=== PATIENT | female | born 1940 | race Caucasian/White ===

== ENCOUNTER 2021-03-12 09:52 | Emergency (ER) | payer OTHER ==
[2021-03-12 09:59] VITALS: BP 160/87; PULSE 90; TEMP 98.5; BMI 25.1
== END 2021-03-12 11:04 | disposition home or self-care (01) ==
LOC: JER 09:52
DX: B02.8 Zoster with other complications (principal)
CPT/HCPCS: 99281-25

== ENCOUNTER 2021-10-23 14:30 | Emergency (ER) | payer OTHER ==
[2021-10-23 14:46] VITALS: TEMP 98; BMI 25.1
[2021-10-23 17:25] LABS: HEMATOCRIT 33.2 % (32.4-45.2); HEMOGLOBIN 10.6 GM/dL (10.7-15.3); MCH 23.8 pg (25.7-33.7); MCHC 31.8 g/dl (32.0-36.0); MEAN CELL VOLUME 74.7 fl (80-96); MEAN PLT VOLUME 9.3 fl (7.5-11.1); PLATELET COUNT 426 10^3/uL (134-434); RBC 4.45 M/mm3 (3.60-5.2); RDW 16.8 % (11.6-15.6); WHITE BLOOD COUNT 9.6 K/mm3 (4.0-10.0)
[2021-10-23 17:42] LABS: ALBUMIN 3.4 g/dl (3.4-5.0); BLOOD UREA NITROGEN 22.6 mg/dL (7-18); CALCIUM 9.6 mg/dL (8.5-10.1)
[2021-10-23 17:45] LABS: CREATININE 1.1 mg/dL (0.55-1.3)
[2021-10-23 17:47] LABS: ACTIVATED PTT 27.6 SECONDS (25.2-36.5); BILIRUBIN,TOTAL 0.3 mg/dL (0.2-1); INR 1.03 (0.83-1.09); PROTHROMBIN TIME (PATIENT) 11.9 SEC (9.7-13.0); TOT PROT 7.5 g/dl (6.4-8.2)
[2021-10-23 17:50] LABS: URIC ACID 4.6 mg/dL (2.6-7.2)
[2021-10-23] MEDS ORDERED: KETOROLAC TROMETHAMINE 15 MG/ML VIAL IVPUSH ONE (18:37)
[2021-10-23] MEDS ORDERED: KETOROLAC TROMETHAMINE 15 MG/ML VIAL ONE (18:55)
[2021-10-23 19:19] VITALS: BP 154/75; PULSE 74
== END 2021-10-23 19:19 | disposition home or self-care (01) ==
LOC: JER 14:30
PROC: 3E0333Z Introduction of Anti-inflammatory into Peripheral Vein, Percutaneous Approach (ICD-10-PCS; principal; 2021-10-23)
DX: I73.9 Peripheral vascular disease, unspecified (principal); M79.672 Pain in left foot
CPT/HCPCS: 36415; 73630-TC-LT; 80053; 84550; 85025; 85610; 85730; 93971-TC; 99285-25

== ENCOUNTER 2022-01-10 14:14 | Inpatient (IN) | payer OTHER ==
[2022-01-10] MEDS ORDERED: ACETAMINOPHEN 1000 MG/100 ML BAG IVPB ONE (15:07)
[2022-01-10] MEDS ORDERED: ACETAMINOPHEN INJECTION 100 ML IVPB ONE (15:38)
[2022-01-10 16:26] LABS: BASO % 0.2 % (0-2.0); EOS % 1.1 % (0-4.5); HEMATOCRIT 32.4 % (32.4-45.2); HEMOGLOBIN 10.3 GM/dL (10.7-15.3); LYMPH % 9.8 % (8-40); MCH 26.1 pg (25.7-33.7); MCHC 31.9 g/dl (32.0-36.0); MEAN CELL VOLUME 81.9 fl (80-96); MONO % 12.8 % (3.8-10.2); NEUT % 76.1 % (42.8-82.8); PLATELET COUNT 232 10^3/uL (134-434); RBC 3.96 M/mm3 (3.60-5.2); RDW 20.9 % (11.6-15.6); WHITE BLOOD COUNT 12.8 K/mm3 (4.0-10.0)
[2022-01-10 16:34] LABS: INR 0.93 (0.83-1.09); PROTHROMBIN TIME (PATIENT) 10.7 SEC (9.7-13.0)
[2022-01-10 16:37] LABS: ACTIVATED PTT 25.6 SECONDS (25.2-36.5)
[2022-01-10 16:44] LABS: ALBUMIN 3.5 g/dl (3.4-5.0); BLOOD UREA NITROGEN 19.9 mg/dL (7-18); CALCIUM 9.6 mg/dL (8.5-10.1)
[2022-01-10 16:47] LABS: CREATININE 0.9 mg/dL (0.55-1.3)
[2022-01-10 16:49] LABS: BILIRUBIN,TOTAL 0.5 mg/dL (0.2-1); TOT PROT 7.2 g/dl (6.4-8.2)
[2022-01-10] MEDS ORDERED: morphine CARPU-JECT 2 MG/1 ML DISP.SYRIN IVPUSH ONE ×2 (17:34→21:18)
[2022-01-10] MEDS ORDERED: ONDANSETRON 4 MG/2 ML VIAL IVPUSH ONE (17:43)
[2022-01-10 17:47] LABS: ANISOCYTOSIS 2+; MACROCYTOSIS 0; OVALOCYTE 2+; TEAR DROP CELLS 1+
[2022-01-10 18:15] LABS: ERYTHROCYTE SEDIMENTATION RATE 24 mm/hr (0-30)
[2022-01-10] MEDS ORDERED: CEFAZOLIN 1 GM/D5W 1 GM/50 ML BAG IVPB ONE (18:35)
[2022-01-10] MEDS ORDERED: ceFAZolin SODIUM 1 GM VIAL ONE (20:55)
[2022-01-11 02:17] VITALS: BMI 25.9
[2022-01-11] MEDS: LEVOTHYROXINE NA 100 MCG TABLET (FP) PO SCH (06:18)
[2022-01-11 09:09] LABS: BASO % 0.3 % (0-2.0); EOS % 2.2 % (0-4.5); HEMATOCRIT 30.5 % (32.4-45.2); HEMOGLOBIN 10.2 GM/dL (10.7-15.3); LYMPH % 13.1 % (8-40); MCH 27.2 pg (25.7-33.7); MCHC 33.3 g/dl (32.0-36.0); MEAN CELL VOLUME 81.5 fl (80-96); MEAN PLT VOLUME 9.2 fl (7.5-11.1); MONO % 12.6 % (3.8-10.2); NEUT % 71.8 % (42.8-82.8); PLATELET COUNT 241 10^3/uL (134-434); RBC 3.74 M/mm3 (3.60-5.2); RDW 20.1 % (11.6-15.6); WHITE BLOOD COUNT 9.8 K/mm3 (4.0-10.0)
[2022-01-11 09:28] LABS: BLOOD UREA NITROGEN 16.8 mg/dL (7-18); CALCIUM 8.9 mg/dL (8.5-10.1)
[2022-01-11 09:29] LABS: ALBUMIN 3.1 g/dl (3.4-5.0); MAGNESIUM 2.1 mg/dL (1.8-2.4)
[2022-01-11 09:31] LABS: CREATININE 0.8 mg/dL (0.55-1.3); PHOSPHOROUS 3.4 mg/dL (2.5-4.9)
[2022-01-11 09:32] LABS: BILIRUBIN,TOTAL 0.8 mg/dL (0.2-1); TOT PROT 6.4 g/dl (6.4-8.2)
[2022-01-11] MEDS ORDERED: ENOXAPARIN NA (PORCINE) 40 MG/0.4 ML DISP.SYRIN SQ SCH (10:00)
[2022-01-11] MEDS ORDERED: ASPIRIN COATED 81 MG TABLET.EC PO SCH (10:00)
[2022-01-11] MEDS ORDERED: CLOPIDOGREL BISULFATE 75 MG TABLET (FP) PO SCH (10:00)
[2022-01-11] MEDS ORDERED: HEPARIN NA (PORCINE) 5,000 UNITS/ML 1ML VIAL IVPUSH PRN (10:55)
[2022-01-11] MEDS: HEPARIN SOD,PORK IN 0.45% NACL 25,000 UNITS/500 ML INFUS.BAG IVPB SCH (12:09)
[2022-01-11] MEDS ORDERED: ONDANSETRON 4 MG/2 ML VIAL IVPUSH ONE (20:31)
[2022-01-11] MEDS ORDERED: LOSARTAN POTASSIUM 50 MG TABLET PO SCH (22:00)
[2022-01-11] MEDS ORDERED: ATORVASTATIN CA 10 MG TABLET (FP) PO SCH (22:00)
[2022-01-11] MEDS: HEPARIN NA (PORCINE) 5,000 UNITS/ML 1ML VIAL IVPUSH PRN (22:13)
[2022-01-12] MEDS: ONDANSETRON 4 MG/2 ML VIAL IVPUSH PRN ×2 (02:31→11:55)
[2022-01-12] MEDS: LEVOTHYROXINE NA 100 MCG TABLET (FP) PO SCH (06:22)
[2022-01-12] MEDS: HEPARIN NA (PORCINE) 5,000 UNITS/ML 1ML VIAL IVPUSH PRN (06:46)
[2022-01-12 09:07] LABS: BASO % 0.5 % (0-2.0); EOS % 2.6 % (0-4.5); HEMATOCRIT 28.6 % (32.4-45.2); HEMOGLOBIN 9.6 GM/dL (10.7-15.3); LYMPH % 16.8 % (8-40); MCHC 33.4 g/dl (32.0-36.0); MEAN CELL VOLUME 80.8 fl (80-96); MEAN PLT VOLUME 9.9 fl (7.5-11.1); NEUT % 67.1 % (42.8-82.8); PLATELET COUNT 236 10^3/uL (134-434); RBC 3.54 M/mm3 (3.60-5.2); RDW 20.5 % (11.6-15.6); WHITE BLOOD COUNT 9.3 K/mm3 (4.0-10.0)
[2022-01-12 10:02] LABS: BLOOD UREA NITROGEN 14.2 mg/dL (7-18); CALCIUM 8.8 mg/dL (8.5-10.1)
[2022-01-12 10:05] LABS: BILIRUBIN,TOTAL 0.9 mg/dL (0.2-1); PHOSPHOROUS 3.4 mg/dL (2.5-4.9); TOT PROT 6.3 g/dl (6.4-8.2)
[2022-01-12 10:08] LABS: CREATININE 0.7 mg/dL (0.55-1.3)
[2022-01-12] MEDS: HEPARIN SOD,PORK IN 0.45% NACL 25,000 UNITS/500 ML INFUS.BAG IVPB SCH (11:58)
[2022-01-12] MEDS ORDERED: HEPARIN NA (PORCINE) 5,000 UNITS/ML 1ML VIAL ONE (12:21)
[2022-01-12] MEDS ORDERED: LIDOCAINE HCL 1%, 10 MG/ML (20ML VIAL) ONE (12:21)
[2022-01-12] MEDS ORDERED: LIDOCAINE HCL 1%, 10 MG/ML (20ML VIAL) NR ONE ×2 (12:46→15:02)
[2022-01-12] MEDS ORDERED: HEPARIN NA (PORCINE) 5,000 UNITS/ML 1ML VIAL SQ ONE ×2 (12:47→15:15)
[2022-01-12] MEDS ORDERED: DEXMEDETOMIDINE HCL 200 MCG/2 ML IVPB ONE (14:18)
[2022-01-12] MEDS ORDERED: MIDAZOLAM HCL 2 MG/2 ML SINGLE DOSE VIAL ONE (14:20)
[2022-01-12 14:41] LABS: EPI CELLS 3 /uL (0-25.1); HYALINE CASTS 0 /uL (0-3.1); URINE APPEARANCE CLEAR; URINE BACTERIA 4 /uL (0-1359); URINE BILIRUBIN NEGATIVE (NEGATIVE); URINE COLOR YELLOW; URINE GLUCOSE (UA) NEGATIVE (NEGATIVE); URINE KETONE NEGATIVE (NEGATIVE); URINE LEUK ESTERASE NEGATIVE (NEGATIVE); URINE NITRITE NEGATIVE (NEGATIVE); URINE PROTEIN NEGATIVE (NEGATIVE); URINE RBC 23 /uL (0-23.9); URINE WBC 3 /uL (0-25.8)
[2022-01-12] MEDS ORDERED: ceFAZolin SODIUM 1 GM VIAL IVPB ONE (14:50)
[2022-01-12] MEDS ORDERED: ceFAZolin SODIUM 1 GM VIAL ONE ×2 (14:55)
[2022-01-12] MEDS ORDERED: PROPOFOL 20 ML ONE (15:02)
[2022-01-12] MEDS ORDERED: ONDANSETRON 4 MG/2 ML VIAL IVPUSH PRN ×2 (16:11→16:21)
[2022-01-12] MEDS ORDERED: FENTANYL CITRATE/PF 50 MCG/ML VIAL ONE ×2 (16:19→17:05)
[2022-01-12] MEDS ORDERED: CLOPIDOGREL BISULFATE 75 MG TABLET (FP) ONE (16:49)
[2022-01-12] MEDS ORDERED: CLOPIDOGREL BISULFATE 75 MG TABLET (FP) PO ONE (16:53)
[2022-01-12] MEDS: LACTATED RINGERS SOLUTION 1,000 ML IV SCH (18:01)
[2022-01-12] MEDS: CLOPIDOGREL BISULFATE 75 MG TABLET (FP) PO SCH (18:01)
[2022-01-12] MEDS: LOSARTAN POTASSIUM 50 MG TABLET PO SCH (21:58)
[2022-01-12] MEDS: ATORVASTATIN CA 10 MG TABLET (FP) PO SCH (21:58)
[2022-01-13] MEDS: LEVOTHYROXINE NA 100 MCG TABLET (FP) PO SCH (06:08)
[2022-01-13] MEDS: LACTATED RINGERS SOLUTION 1,000 ML IV SCH ×2 (06:10→17:25)
[2022-01-13 08:45] LABS: HEMOGLOBIN 9.7 GM/dL (10.7-15.3); MCH 26.3 pg (25.7-33.7); MCHC 32.4 g/dl (32.0-36.0); MEAN CELL VOLUME 81.3 fl (80-96); MEAN PLT VOLUME 9.6 fl (7.5-11.1); PLATELET COUNT 259 10^3/uL (134-434); RBC 3.68 M/mm3 (3.60-5.2); RDW 20.2 % (11.6-15.6); WHITE BLOOD COUNT 10.6 K/mm3 (4.0-10.0)
[2022-01-13 09:02] LABS: CALCIUM 8.6 mg/dL (8.5-10.1)
[2022-01-13 09:03] LABS: ALBUMIN 2.9 g/dl (3.4-5.0); MAGNESIUM 1.9 mg/dL (1.8-2.4)
[2022-01-13 09:06] LABS: CREATININE 0.7 mg/dL (0.55-1.3); PHOSPHOROUS 3.3 mg/dL (2.5-4.9)
[2022-01-13 09:07] LABS: TOT PROT 6.2 g/dl (6.4-8.2)
[2022-01-13 09:08] LABS: BILIRUBIN,TOTAL 1.1 mg/dL (0.2-1)
[2022-01-13] MEDS ORDERED: PANTOPRAZOLE 40 MG TABLET PO SCH (10:00)
[2022-01-13] MEDS: ASPIRIN COATED 81 MG TABLET.EC PO SCH (11:00)
[2022-01-13] MEDS: PANTOPRAZOLE 40 MG TABLET PO SCH (11:00)
[2022-01-13] MEDS: CLOPIDOGREL BISULFATE 75 MG TABLET (FP) PO SCH (11:00)
[2022-01-13] MEDS: ENOXAPARIN NA (PORCINE) 40 MG/0.4 ML DISP.SYRIN SQ SCH (11:34)
[2022-01-13] MEDS: POLYETHYLENE GLYCOL (HEALTHYLAX) 3350 17 GM PACKET PO SCH (13:49)
[2022-01-13] MEDS: LOSARTAN POTASSIUM 50 MG TABLET PO SCH (23:01)
[2022-01-13] MEDS: ATORVASTATIN CA 10 MG TABLET (FP) PO SCH (23:02)
[2022-01-14] MEDS: LACTATED RINGERS SOLUTION 1,000 ML IV SCH (06:24)
[2022-01-14] MEDS: LEVOTHYROXINE NA 100 MCG TABLET (FP) PO SCH (06:24)
[2022-01-14 08:58] LABS: BASO % 0.3 % (0-2.0); EOS % 2.7 % (0-4.5); HEMATOCRIT 30.6 % (32.4-45.2); HEMOGLOBIN 9.9 GM/dL (10.7-15.3); MCH 26.7 pg (25.7-33.7); MCHC 32.5 g/dl (32.0-36.0); MEAN CELL VOLUME 82.1 fl (80-96); MEAN PLT VOLUME 9.7 fl (7.5-11.1); MONO % 14.6 % (3.8-10.2); NEUT % 67.4 % (42.8-82.8); PLATELET COUNT 293 10^3/uL (134-434); RBC 3.72 M/mm3 (3.60-5.2); RDW 19.7 % (11.6-15.6); WHITE BLOOD COUNT 10.9 K/mm3 (4.0-10.0)
[2022-01-14] MEDS: POLYETHYLENE GLYCOL (HEALTHYLAX) 3350 17 GM PACKET PO SCH (09:00)
[2022-01-14] MEDS: PANTOPRAZOLE 40 MG TABLET PO SCH (09:00)
[2022-01-14] MEDS: ENOXAPARIN NA (PORCINE) 40 MG/0.4 ML DISP.SYRIN SQ SCH (09:00)
[2022-01-14] MEDS: CLOPIDOGREL BISULFATE 75 MG TABLET (FP) PO SCH (09:00)
[2022-01-14] MEDS: ASPIRIN COATED 81 MG TABLET.EC PO SCH (09:00)
[2022-01-14 10:01] LABS: BILIRUBIN,TOTAL 1.1 mg/dL (0.2-1); CALCIUM 8.8 mg/dL (8.5-10.1); TOT PROT 6.4 g/dl (6.4-8.2)
[2022-01-14 10:02] LABS: ALBUMIN 2.9 g/dl (3.4-5.0); BLOOD UREA NITROGEN 15.3 mg/dL (7-18); MAGNESIUM 1.9 mg/dL (1.8-2.4)
[2022-01-14 10:04] LABS: CREATININE 0.7 mg/dL (0.55-1.3)
[2022-01-14] MEDS ORDERED: ceFAZolin 2 GRAM PREMIX BAG IVPB ONE (15:08)
[2022-01-14] MEDS ORDERED: CEFAZOLIN 2 GM in DEXTROSE 5%-WATER - 100 ML IVPB ONE (16:00)
[2022-01-14] MEDS: ATORVASTATIN CA 10 MG TABLET (FP) PO SCH (22:02)
[2022-01-14] MEDS: LOSARTAN POTASSIUM 50 MG TABLET PO SCH (22:03)
[2022-01-15] MEDS: LACTATED RINGERS SOLUTION 1,000 ML IV SCH (05:47)
[2022-01-15] MEDS: LEVOTHYROXINE NA 100 MCG TABLET (FP) PO SCH (06:47)
[2022-01-15 09:26] LABS: HEMOGLOBIN 9.4 GM/dL (10.7-15.3); MCH 27.3 pg (25.7-33.7); MCHC 33.4 g/dl (32.0-36.0); MEAN CELL VOLUME 81.6 fl (80-96); MEAN PLT VOLUME 9.3 fl (7.5-11.1); PLATELET COUNT 274 10^3/uL (134-434); RBC 3.43 M/mm3 (3.60-5.2); RDW 19.7 % (11.6-15.6); WHITE BLOOD COUNT 9.2 K/mm3 (4.0-10.0)
[2022-01-15] MEDS: ASPIRIN COATED 81 MG TABLET.EC PO SCH (09:30)
[2022-01-15] MEDS: CLOPIDOGREL BISULFATE 75 MG TABLET (FP) PO SCH (09:30)
[2022-01-15] MEDS: ENOXAPARIN NA (PORCINE) 40 MG/0.4 ML DISP.SYRIN SQ SCH (09:30)
[2022-01-15] MEDS: PANTOPRAZOLE 40 MG TABLET PO SCH (09:30)
[2022-01-15] MEDS: POLYETHYLENE GLYCOL (HEALTHYLAX) 3350 17 GM PACKET PO SCH (09:31)
[2022-01-15 14:26] VITALS: BP 110/60; PULSE 101; TEMP 98.4
== END 2022-01-15 15:56 | disposition home health service (06) | DRG 271 ==
LOC: JER 14:14 → JERBED 22:33 → J7W 01-11 01:55
PROVIDERS: ADMIT Internal Medicine; ATTEND Internal Medicine
PROC: X27J385 Dilation of Left Femoral Artery with Sustained Release Drug-eluting Intraluminal Device, Percutaneous Approach, New Technology Group 5 (ICD-10-PCS; 2022-01-12)
PROC: 3E05317 Introduction of Other Thrombolytic into Peripheral Artery, Percutaneous Approach (ICD-10-PCS; 2022-01-12)
PROC: 04CL3ZZ Extirpation of Matter from Left Femoral Artery, Percutaneous Approach (ICD-10-PCS; principal; 2022-01-12 14:00)
DX: I73.9 Peripheral vascular disease, unspecified (principal); I74.3 Embolism and thrombosis of arteries of the lower extremities; M79.605 Pain in left leg; E03.9 Hypothyroidism, unspecified; I10 Essential (primary) hypertension; D64.9 Anemia, unspecified; E78.5 Hyperlipidemia, unspecified; D72.829 Elevated white blood cell count, unspecified; I49.1 Atrial premature depolarization
CPT/HCPCS: 36415; 73590-TC-LT-FY; 73610-TC-LT-FY; 73706-TC-RT; 76000-TC-FY; 80053; 81003; 82272; 82728; 83540; 83550; 83735; 84100; 85025; 85027; 85045; 85610; 85651; 85730; 86140; 86850; 86900; 86901; 93005; 93010; 93925-TC; 93971-TC; 94760; 97116-GP; 97161-GP; 99285-25; C9803-CS; J1644; Q9967; U0003; U0005

== ENCOUNTER 2022-02-26 09:12 | Inpatient (IN) | payer OTHER ==
[2022-02-26] MEDS ORDERED: morphine CARPU-JECT 4 MG/1 ML DISP.SYRIN IVPUSH ONE (10:21)
[2022-02-26] MEDS ORDERED: morphine SULFATE 4 MG/ML VIAL ONE (10:23)
[2022-02-26 10:31] LABS: EOS % 2.6 % (0-4.5); HEMATOCRIT 40.6 % (32.4-45.2); HEMOGLOBIN 13.3 GM/dL (10.7-15.3); MCH 28.3 pg (25.7-33.7); MCHC 32.7 g/dl (32.0-36.0); MEAN CELL VOLUME 86.4 fl (80-96); MEAN PLT VOLUME 9.7 fl (7.5-11.1); MONO % 8.7 % (3.8-10.2); NEUT % 64.7 % (42.8-82.8); PLATELET COUNT 295 10^3/uL (134-434); RDW 16.6 % (11.6-15.6); WHITE BLOOD COUNT 8.5 K/mm3 (4.0-10.0)
[2022-02-26 10:40] LABS: INR 0.96 (0.83-1.09)
[2022-02-26 10:43] LABS: ACTIVATED PTT 28.3 SECONDS (25.2-36.5)
[2022-02-26 10:58] LABS: CALCIUM 10.1 mg/dL (8.5-10.1)
[2022-02-26 10:59] LABS: ALBUMIN 4.1 g/dl (3.4-5.0)
[2022-02-26] MEDS ORDERED: ONDANSETRON 4 MG/2 ML VIAL IVPUSH ONE (10:59)
[2022-02-26 11:02] LABS: CREATININE 0.9 mg/dL (0.55-1.3)
[2022-02-26] MEDS ORDERED: ONDANSETRON 4 MG/2 ML VIAL ONE (11:02)
[2022-02-26 11:03] LABS: TOT PROT 7.9 g/dl (6.4-8.2)
[2022-02-26 11:04] LABS: BILIRUBIN,TOTAL 0.6 mg/dL (0.2-1)
[2022-02-26] MEDS ORDERED: traMADol HCL 50 MG TABLET PO PRN (11:33)
[2022-02-26] MEDS ORDERED: HEPARIN NA (PORCINE) 5,000 UNITS/ML 1ML VIAL ONE ×2 (14:33→18:42)
[2022-02-26] MEDS ORDERED: LIDOCAINE HCL 1%, 10 MG/ML (20ML VIAL) ONE (14:33)
[2022-02-26] MEDS ORDERED: PROPOFOL 20 ML ONE ×2 (17:05→17:25)
[2022-02-26] MEDS ORDERED: MIDAZOLAM HCL 2 MG/2 ML SINGLE DOSE VIAL ONE (17:05)
[2022-02-26] MEDS ORDERED: ceFAZolin SODIUM 1 GM VIAL IVPB ONE (17:10)
[2022-02-26] MEDS ORDERED: LIDOCAINE HCL 1%, 10 MG/ML (20ML VIAL) INF ONE (17:34)
[2022-02-26] MEDS ORDERED: OXYTOCIN 10 UNITS/ML VIAL ONE (17:43)
[2022-02-26] MEDS ORDERED: ALTEPLASE (CATHFLO) 15 MG in SODIUM CHLORIDE 135 ML CVP ONE ×3 (18:30→23:00)
[2022-02-26] MEDS ORDERED: HEPARIN INFUSION - 25,000 UNITS/500 ML INFUS.BAG IVPB ONE (18:46)
[2022-02-26] MEDS: SODIUM CHLORIDE 1,000 ML IV SCH (19:00)
[2022-02-26] MEDS ORDERED: KETOROLAC TROMETHAMINE 30 MG/1 ML VIAL ONE (19:07)
[2022-02-26] MEDS ORDERED: HEPARIN INFUSION - 25,000 UNITS/500 ML INFUS.BAG IVPB SCH (19:30)
[2022-02-26] MEDS ORDERED: FENTANYL CITRATE/PF 50 MCG/ML VIAL ONE ×2 (19:39→21:12)
[2022-02-26] MEDS ORDERED: ONDANSETRON 4 MG/2 ML VIAL IVPUSH PRN (19:44)
[2022-02-26] MEDS ORDERED: PROMETHAZINE HCL 25 MG/1 ML VIAL IVPUSH PRN (19:44)
[2022-02-26] MEDS ORDERED: ALTEPLASE (CATHFLO) 2 MG/2 ML VIAL CVP ONE (22:13)
[2022-02-26] MEDS: ATORVASTATIN CA 10 MG TABLET (FP) PO SCH (22:53)
[2022-02-26] MEDS: LOSARTAN POTASSIUM 50 MG TABLET PO SCH (22:53)
[2022-02-26] MEDS: morphine SULFATE 4 MG/ML VIAL IVPUSH PRN (23:04)
[2022-02-27] MEDS ORDERED: ACETAMINOPHEN 1000 MG/100 ML BAG IVPB ONE (01:28)
[2022-02-27 02:19] LABS: MCH 28.3 pg (25.7-33.7); MCHC 33.2 g/dl (32.0-36.0); MEAN CELL VOLUME 85.2 fl (80-96); MEAN PLT VOLUME 9.3 fl (7.5-11.1); PLATELET COUNT 208 10^3/uL (134-434); RBC 4.23 M/mm3 (3.60-5.2); RDW 16.4 % (11.6-15.6); WHITE BLOOD COUNT 10.3 K/mm3 (4.0-10.0)
[2022-02-27] MEDS: morphine SULFATE 4 MG/ML VIAL IVPUSH PRN ×2 (03:09→07:22)
[2022-02-27 03:26] LABS: BLOOD UREA NITROGEN 18.8 mg/dL (7-18)
[2022-02-27 03:29] LABS: CREATININE 0.8 mg/dL (0.55-1.3)
[2022-02-27 03:53] LABS: CALCIUM 8.3 mg/dL (8.5-10.1)
[2022-02-27 06:07] LABS: HEMATOCRIT 35.7 % (32.4-45.2); HEMOGLOBIN 11.9 GM/dL (10.7-15.3); MCH 28.4 pg (25.7-33.7); MCHC 33.2 g/dl (32.0-36.0); MEAN CELL VOLUME 85.6 fl (80-96); MEAN PLT VOLUME 9.3 fl (7.5-11.1); PLATELET COUNT 207 10^3/uL (134-434); RBC 4.18 M/mm3 (3.60-5.2); RDW 16.4 % (11.6-15.6); WHITE BLOOD COUNT 9.3 K/mm3 (4.0-10.0)
[2022-02-27 06:22] LABS: ACTIVATED PTT 34.9 SECONDS (25.2-36.5)
[2022-02-27 06:27] LABS: CALCIUM 8.3 mg/dL (8.5-10.1)
[2022-02-27 06:28] LABS: BLOOD UREA NITROGEN 18.5 mg/dL (7-18)
[2022-02-27 06:31] LABS: CREATININE 0.8 mg/dL (0.55-1.3)
[2022-02-27 06:33] LABS: BILIRUBIN,TOTAL 0.5 mg/dL (0.2-1); TOT PROT 6.3 g/dl (6.4-8.2)
[2022-02-27 06:43] LABS: INR 1.07 (0.83-1.09); PROTHROMBIN TIME (PATIENT) 12.3 SEC (9.7-13.0)
[2022-02-27] MEDS: LEVOTHYROXINE NA 100 MCG TABLET (FP) PO SCH (07:21)
[2022-02-27] MEDS ORDERED: ALTEPLASE (CATHFLO) 2 MG/2 ML VIAL IVPUSH ONE (07:24)
[2022-02-27] MEDS ORDERED: ALTEPLASE (CATHFLO) 2 MG/2 ML VIAL CVP ONE (07:24)
[2022-02-27 07:27] LABS: ALBUMIN 3.1 g/dl (3.4-5.0)
[2022-02-27] MEDS ORDERED: ALTEPLASE (CATHFLO) 15 MG in SODIUM CHLORIDE 135 ML CVP ONE (09:00)
[2022-02-27] MEDS: FERROUS SO4 325 MG TABLET (FP) PO SCH (09:10)
[2022-02-27] MEDS: PANTOPRAZOLE 40 MG TABLET PO SCH (09:10)
[2022-02-27] MEDS ORDERED: HYDROmorphone HCl 2 MG/ML VIAL IM PRN ×2 (09:23→09:59)
[2022-02-27] MEDS: DOCUSATE SODIUM 100 MG CAPSULE (FP) PO SCH (10:19)
[2022-02-27] MEDS: HYDROmorphone HCl 2 MG/ML VIAL IVPUSH PRN (12:11)
[2022-02-27 13:51] LABS: BASO % 0.2 % (0-2.0); EOS % 0.6 % (0-4.5); HEMATOCRIT 36.2 % (32.4-45.2); HEMOGLOBIN 11.7 GM/dL (10.7-15.3); LYMPH % 14.9 % (8-40); MCH 27.7 pg (25.7-33.7); MCHC 32.3 g/dl (32.0-36.0); MEAN CELL VOLUME 85.8 fl (80-96); MEAN PLT VOLUME 9.2 fl (7.5-11.1); MONO % 11.4 % (3.8-10.2); NEUT % 72.9 % (42.8-82.8); PLATELET COUNT 197 10^3/uL (134-434); RBC 4.23 M/mm3 (3.60-5.2); RDW 16.4 % (11.6-15.6); WHITE BLOOD COUNT 11.9 K/mm3 (4.0-10.0)
[2022-02-27 13:59] LABS: ALBUMIN 3.1 g/dl (3.4-5.0); BLOOD UREA NITROGEN 15.2 mg/dL (7-18); INR 1.03 (0.83-1.09); PROTHROMBIN TIME (PATIENT) 11.8 SEC (9.7-13.0)
[2022-02-27 14:01] LABS: ACTIVATED PTT 22.8 SECONDS (25.2-36.5)
[2022-02-27 14:03] LABS: CREATININE 0.6 mg/dL (0.55-1.3)
[2022-02-27 14:04] LABS: BILIRUBIN,TOTAL 0.6 mg/dL (0.2-1); TOT PROT 6.7 g/dl (6.4-8.2)
[2022-02-27] MEDS ORDERED: HEPARIN NA (PORCINE) 5,000 UNITS/ML 1ML VIAL IVPUSH ONE (14:36)
[2022-02-27] MEDS ORDERED: HEPARIN NA (PORCINE) 5,000 UNITS/ML 1ML VIAL IVPUSH PRN ×3 (14:38→21:30)
[2022-02-27] MEDS ORDERED: HEPARIN - 25,000 UNIT in SODIUM CHLORIDE 495 ML IV SCH (14:45)
[2022-02-27] MEDS ORDERED: LIDOCAINE HCL 1%, 10 MG/ML (20ML VIAL) ONE (16:35)
[2022-02-27] MEDS ORDERED: HEPARIN NA (PORCINE) 5,000 UNITS/ML 1ML VIAL ONE ×2 (16:35→20:50)
[2022-02-27] MEDS ORDERED: LIDOCAINE HCL/PF 2% SDV 5ML VIAL ONE (17:30)
[2022-02-27] MEDS ORDERED: MIDAZOLAM HCL 2 MG/2 ML SINGLE DOSE VIAL ONE (17:31)
[2022-02-27] MEDS ORDERED: PROPOFOL 20 ML ONE (17:31)
[2022-02-27] MEDS ORDERED: ceFAZolin SODIUM 1 GM VIAL IVPB ONE (19:50)
[2022-02-27] MEDS ORDERED: HEPARIN NA (PORCINE) 5,000 UNITS/ML 1ML VIAL SQ ONE (19:53)
[2022-02-27] MEDS ORDERED: ceFAZolin SODIUM 1 GM VIAL ONE (20:50)
[2022-02-27] MEDS ORDERED: ONDANSETRON 4 MG/2 ML VIAL IVPUSH PRN (21:32)
[2022-02-27] MEDS: HEPARIN INFUSION - 25,000 UNITS/500 ML INFUS.BAG IVPB SCH (22:33)
[2022-02-27] MEDS: ATORVASTATIN CA 10 MG TABLET (FP) PO SCH (22:34)
[2022-02-27] MEDS: LOSARTAN POTASSIUM 50 MG TABLET PO SCH ×2 (22:34→23:00)
[2022-02-27] MEDS: SODIUM CHLORIDE 1,000 ML IV SCH (22:34)
[2022-02-28] MEDS: HYDROmorphone HCl 2 MG/ML VIAL IVPUSH PRN (03:07)
[2022-02-28] MEDS ORDERED: ONDANSETRON 4 MG/2 ML VIAL IVPUSH PRN (05:09)
[2022-02-28] MEDS: LEVOTHYROXINE NA 100 MCG TABLET (FP) PO SCH (07:12)
[2022-02-28] MEDS: PANTOPRAZOLE 40 MG TABLET PO SCH (10:58)
[2022-02-28] MEDS: DOCUSATE SODIUM 100 MG CAPSULE (FP) PO SCH (10:58)
[2022-02-28] MEDS: FERROUS SO4 325 MG TABLET (FP) PO SCH (10:58)
[2022-02-28 11:23] LABS: ACTIVATED PTT 35.7 SECONDS (25.2-36.5); INR 1.08 (0.83-1.09); PROTHROMBIN TIME (PATIENT) 12.4 SEC (9.7-13.0)
[2022-02-28] MEDS: WARFARIN NA 5 MG TABLET PO SCH (18:05)
[2022-02-28] MEDS: traMADol HCL 50 MG TABLET PO PRN (18:22)
[2022-02-28] MEDS ORDERED: BENZOCAINE/MENTH/CETYLPYRD CL 1 EACH LOZENGE MM PRN (18:28)
[2022-02-28 19:38] LABS: BASO % 0.3 % (0-2.0); EOS % 1.6 % (0-4.5); HEMATOCRIT 28.7 % (32.4-45.2); HEMOGLOBIN 9.5 GM/dL (10.7-15.3); LYMPH % 11.2 % (8-40); MCH 28.5 pg (25.7-33.7); MCHC 33.3 g/dl (32.0-36.0); MEAN CELL VOLUME 85.6 fl (80-96); MEAN PLT VOLUME 8.8 fl (7.5-11.1); NEUT % 71.9 % (42.8-82.8); PLATELET COUNT 154 10^3/uL (134-434); RBC 3.35 M/mm3 (3.60-5.2); WHITE BLOOD COUNT 11.4 K/mm3 (4.0-10.0)
[2022-02-28 19:58] LABS: ALBUMIN 2.7 g/dl (3.4-5.0); BLOOD UREA NITROGEN 14.6 mg/dL (7-18); CALCIUM 8.1 mg/dL (8.5-10.1)
[2022-02-28 20:02] LABS: CREATININE 0.6 mg/dL (0.55-1.3)
[2022-02-28 20:03] LABS: BILIRUBIN,TOTAL 0.4 mg/dL (0.2-1); TOT PROT 5.5 g/dl (6.4-8.2)
[2022-02-28] MEDS: SODIUM CHLORIDE 1,000 ML IV SCH (21:24)
[2022-02-28] MEDS: LOSARTAN POTASSIUM 50 MG TABLET PO SCH (21:24)
[2022-02-28] MEDS: ATORVASTATIN CA 10 MG TABLET (FP) PO SCH (21:24)
[2022-02-28] MEDS: HEPARIN INFUSION - 25,000 UNITS/500 ML INFUS.BAG IVPB SCH (21:30)
[2022-03-01] MEDS: traMADol HCL 50 MG TABLET PO PRN (05:24)
[2022-03-01] MEDS: HEPARIN INFUSION - 25,000 UNITS/500 ML INFUS.BAG IVPB SCH ×2 (05:30→22:23)
[2022-03-01] MEDS: LEVOTHYROXINE NA 100 MCG TABLET (FP) PO SCH (06:42)
[2022-03-01 07:14] LABS: HEMATOCRIT 26.9 % (32.4-45.2); MCHC 33.6 g/dl (32.0-36.0); MEAN CELL VOLUME 86.1 fl (80-96); MEAN PLT VOLUME 9.4 fl (7.5-11.1); PLATELET COUNT 157 10^3/uL (134-434); RBC 3.12 M/mm3 (3.60-5.2); RDW 15.4 % (11.6-15.6)
[2022-03-01 07:17] LABS: INR 1.25 (0.83-1.09); PROTHROMBIN TIME (PATIENT) 14.4 SEC (9.7-13.0)
[2022-03-01] MEDS: HEPARIN NA (PORCINE) 5,000 UNITS/ML 1ML VIAL IVPUSH PRN ×2 (07:36→15:48)
[2022-03-01] MEDS: PANTOPRAZOLE 40 MG TABLET PO SCH (10:23)
[2022-03-01] MEDS: FERROUS SO4 325 MG TABLET (FP) PO SCH (10:23)
[2022-03-01] MEDS: DOCUSATE SODIUM 100 MG CAPSULE (FP) PO SCH (10:23)
[2022-03-01] MEDS ORDERED: traMADol HCL 50 MG TABLET PO PRN (13:00)
[2022-03-01] MEDS ORDERED: HYDROmorphone HCl 2 MG/ML VIAL IVPUSH STA (13:02)
[2022-03-01] MEDS: ACETAMINOPHEN 1000 MG/100 ML BAG IVPB SCH ×2 (15:49→21:22)
[2022-03-01] MEDS: WARFARIN NA 5 MG TABLET PO SCH (17:27)
[2022-03-01] MEDS: SODIUM CHLORIDE 1,000 ML IV SCH (21:23)
[2022-03-01] MEDS: ATORVASTATIN CA 10 MG TABLET (FP) PO SCH (21:23)
[2022-03-01] MEDS: LOSARTAN POTASSIUM 50 MG TABLET PO SCH (21:23)
[2022-03-02] MEDS: ACETAMINOPHEN 1000 MG/100 ML BAG IVPB SCH ×2 (02:00→06:31)
[2022-03-02] MEDS: LEVOTHYROXINE NA 100 MCG TABLET (FP) PO SCH (06:31)
[2022-03-02 07:46] LABS: HEMOGLOBIN 8.8 GM/dL (10.7-15.3); MCHC 33.7 g/dl (32.0-36.0); MEAN PLT VOLUME 9.8 fl (7.5-11.1); PLATELET COUNT 189 10^3/uL (134-434); RBC 3.03 M/mm3 (3.60-5.2); RDW 15.4 % (11.6-15.6); WHITE BLOOD COUNT 9.9 K/mm3 (4.0-10.0)
[2022-03-02 07:59] LABS: INR 2.4 (0.83-1.09); PROTHROMBIN TIME (PATIENT) 27.9 SEC (9.7-13.0)
[2022-03-02 08:00] LABS: ACTIVATED PTT 67.2 SECONDS (25.2-36.5)
[2022-03-02 08:20] LABS: BLOOD UREA NITROGEN 11.4 mg/dL (7-18); CALCIUM 8.2 mg/dL (8.5-10.1); CREATININE 0.5 mg/dL (0.55-1.3); PHOSPHOROUS 2.3 mg/dL (2.5-4.9)
[2022-03-02] MEDS: PANTOPRAZOLE 40 MG TABLET PO SCH (09:34)
[2022-03-02] MEDS: DOCUSATE SODIUM 100 MG CAPSULE (FP) PO SCH (09:34)
[2022-03-02] MEDS: FERROUS SO4 325 MG TABLET (FP) PO SCH (09:34)
[2022-03-02] MEDS: HEPARIN INFUSION - 25,000 UNITS/500 ML INFUS.BAG IVPB SCH ×2 (09:50→21:10)
[2022-03-02] MEDS ORDERED: ACETAMINOPHEN 1000 MG/100 ML BAG IVPB PRN ×2 (13:21→16:19)
[2022-03-02] MEDS ORDERED: BENZOCAINE/MENTH/CETYLPYRD CL 1 EACH LOZENGE MM PRN (16:19)
[2022-03-02] MEDS ORDERED: ONDANSETRON 4 MG/2 ML VIAL IVPUSH PRN (16:19)
[2022-03-02] MEDS ORDERED: HEPARIN NA (PORCINE) 5,000 UNITS/ML 1ML VIAL IVPUSH PRN ×4 (16:19)
[2022-03-02] MEDS ORDERED: WARFARIN NA 5 MG TABLET PO SCH (18:00)
[2022-03-02] MEDS: SODIUM CHLORIDE 1,000 ML IV SCH ×2 (21:10→21:49)
[2022-03-02] MEDS: LOSARTAN POTASSIUM 50 MG TABLET PO SCH (21:30)
[2022-03-02] MEDS: ATORVASTATIN CA 10 MG TABLET (FP) PO SCH (21:31)
[2022-03-03] MEDS: traMADol HCL 50 MG TABLET PO PRN (03:37)
[2022-03-03] MEDS: LEVOTHYROXINE NA 100 MCG TABLET (FP) PO SCH (06:21)
[2022-03-03 09:09] LABS: HEMATOCRIT 27.1 % (32.4-45.2); MCH 28.4 pg (25.7-33.7); MCHC 33.2 g/dl (32.0-36.0); MEAN CELL VOLUME 85.5 fl (80-96); MEAN PLT VOLUME 9.6 fl (7.5-11.1); PLATELET COUNT 235 10^3/uL (134-434); RBC 3.16 M/mm3 (3.60-5.2); RDW 15.8 % (11.6-15.6); WHITE BLOOD COUNT 10.5 K/mm3 (4.0-10.0)
[2022-03-03 09:29] LABS: ACTIVATED PTT 113.1 SECONDS (25.2-36.5)
[2022-03-03] MEDS: FERROUS SO4 325 MG TABLET (FP) PO SCH (10:15)
[2022-03-03] MEDS: DOCUSATE SODIUM 100 MG CAPSULE (FP) PO SCH (10:15)
[2022-03-03] MEDS: PANTOPRAZOLE 40 MG TABLET PO SCH (10:15)
[2022-03-03 10:37] LABS: PROTHROMBIN TIME (PATIENT) 51.4 SEC (9.7-13.0)
[2022-03-03 10:46] LABS: INR 4.4 (0.83-1.09)
[2022-03-03] MEDS: HEPARIN INFUSION - 25,000 UNITS/500 ML INFUS.BAG IVPB SCH (13:40)
[2022-03-03] MEDS ORDERED: WARFARIN NA 3 MG TABLET PO SCH (15:15)
[2022-03-03] MEDS: SODIUM CHLORIDE 1,000 ML IV SCH ×2 (16:39→22:53)
[2022-03-03 16:58] LABS: PROTHROMBIN TIME (PATIENT) 50.8 SEC (9.7-13.0)
[2022-03-03 17:01] LABS: ACTIVATED PTT 63.2 SECONDS (25.2-36.5)
[2022-03-03 17:18] LABS: INR 4.35 (0.83-1.09)
[2022-03-03] MEDS ORDERED: MAGNESIUM OXIDE 400 MG TABLET (FP) PO ONE (17:37)
[2022-03-03] MEDS ORDERED: WARFARIN NA 3 MG TABLET PO ONE (18:00)
[2022-03-03] MEDS: WARFARIN NA 3 MG TABLET PO SCH (18:27)
[2022-03-03] MEDS: ATORVASTATIN CA 10 MG TABLET (FP) PO SCH (22:55)
[2022-03-03] MEDS: LOSARTAN POTASSIUM 50 MG TABLET PO SCH (22:55)
[2022-03-04] MEDS: LEVOTHYROXINE NA 100 MCG TABLET (FP) PO SCH (06:10)
[2022-03-04 08:58] LABS: PROTHROMBIN TIME (PATIENT) 48.1 SEC (9.7-13.0)
[2022-03-04 09:01] LABS: ACTIVATED PTT 42.3 SECONDS (25.2-36.5); HEMATOCRIT 26.9 % (32.4-45.2); HEMOGLOBIN 9.1 GM/dL (10.7-15.3); MCH 28.9 pg (25.7-33.7); MCHC 33.8 g/dl (32.0-36.0); MEAN CELL VOLUME 85.4 fl (80-96); MEAN PLT VOLUME 9.3 fl (7.5-11.1); PLATELET COUNT 247 10^3/uL (134-434); RBC 3.14 M/mm3 (3.60-5.2); RDW 15.8 % (11.6-15.6); WHITE BLOOD COUNT 10.9 K/mm3 (4.0-10.0)
[2022-03-04 09:58] LABS: ANISOCYTOSIS 0; HELMET CELLS 0; HOWELL-JOLLY BODIES 0; MACROCYTOSIS 0; OVALOCYTE 0; ROULEAU 0; SICKELED CELLS 0; TARGET CELLS 0; TEAR DROP CELLS 0; TOXIC GRANULATION 0
[2022-03-04] MEDS: DOCUSATE SODIUM 100 MG CAPSULE (FP) PO SCH (10:39)
[2022-03-04] MEDS: FERROUS SO4 325 MG TABLET (FP) PO SCH (10:39)
[2022-03-04] MEDS: PANTOPRAZOLE 40 MG TABLET PO SCH (10:39)
[2022-03-04 10:45] LABS: CALCIUM 8.4 mg/dL (8.5-10.1)
[2022-03-04 10:47] LABS: ALBUMIN 2.6 g/dl (3.4-5.0); BLOOD UREA NITROGEN 10.3 mg/dL (7-18)
[2022-03-04 10:50] LABS: CREATININE 0.5 mg/dL (0.55-1.3)
[2022-03-04 10:51] LABS: BILIRUBIN,TOTAL 0.6 mg/dL (0.2-1); TOT PROT 5.8 g/dl (6.4-8.2)
[2022-03-04 11:03] LABS: INR 4.12 (0.83-1.09)
[2022-03-04 14:18] VITALS: BMI 27.5
[2022-03-04] MEDS: SODIUM CHLORIDE 1,000 ML IV SCH ×2 (17:41→23:04)
[2022-03-04] MEDS: WARFARIN NA 3 MG TABLET PO SCH (17:41)
[2022-03-04] MEDS: ATORVASTATIN CA 10 MG TABLET (FP) PO SCH (23:04)
[2022-03-04] MEDS: LOSARTAN POTASSIUM 50 MG TABLET PO SCH (23:08)
[2022-03-05] MEDS: LEVOTHYROXINE NA 100 MCG TABLET (FP) PO SCH (06:38)
[2022-03-05 09:12] LABS: INR 3.9 (0.83-1.09); PROTHROMBIN TIME (PATIENT) 45.5 SEC (9.7-13.0)
[2022-03-05 09:14] LABS: ACTIVATED PTT 42.2 SECONDS (25.2-36.5)
[2022-03-05 09:16] LABS: HEMATOCRIT 26.3 % (32.4-45.2); HEMOGLOBIN 8.7 GM/dL (10.7-15.3); MCH 28.2 pg (25.7-33.7); MCHC 33.1 g/dl (32.0-36.0); MEAN CELL VOLUME 85.2 fl (80-96); MEAN PLT VOLUME 8.9 fl (7.5-11.1); PLATELET COUNT 253 10^3/uL (134-434); RBC 3.09 M/mm3 (3.60-5.2); RDW 16.2 % (11.6-15.6); WHITE BLOOD COUNT 11.4 K/mm3 (4.0-10.0)
[2022-03-05 09:25] LABS: ALBUMIN 2.3 g/dl (3.4-5.0); BLOOD UREA NITROGEN 10.1 mg/dL (7-18)
[2022-03-05 09:26] LABS: CALCIUM 8.2 mg/dL (8.5-10.1)
[2022-03-05 09:31] LABS: BILIRUBIN,TOTAL 0.6 mg/dL (0.2-1); CREATININE 0.5 mg/dL (0.55-1.3); TOT PROT 5.8 g/dl (6.4-8.2)
[2022-03-05 09:46] LABS: ANISOCYTOSIS 0; HELMET CELLS 0; HOWELL-JOLLY BODIES 0; MACROCYTOSIS 0; OVALOCYTE 0; ROULEAU 0; SICKELED CELLS 0; TARGET CELLS 0; TEAR DROP CELLS 0; TOXIC GRANULATION 0
[2022-03-05] MEDS: FERROUS SO4 325 MG TABLET (FP) PO SCH (10:08)
[2022-03-05] MEDS: DOCUSATE SODIUM 100 MG CAPSULE (FP) PO SCH (10:08)
[2022-03-05] MEDS: PANTOPRAZOLE 40 MG TABLET PO SCH (10:08)
[2022-03-05] MEDS ORDERED: LOSARTAN POTASSIUM 50 MG TABLET PO ONE (14:34)
[2022-03-05] MEDS: SODIUM CHLORIDE 1,000 ML IV SCH (18:14)
[2022-03-05] MEDS: WARFARIN NA 3 MG TABLET PO SCH (18:14)
[2022-03-05] MEDS: ATORVASTATIN CA 10 MG TABLET (FP) PO SCH (21:49)
[2022-03-05] MEDS: traMADol HCL 50 MG TABLET PO PRN (23:28)
[2022-03-06] MEDS: LEVOTHYROXINE NA 100 MCG TABLET (FP) PO SCH (06:11)
[2022-03-06] MEDS: traMADol HCL 50 MG TABLET PO PRN ×3 (06:52→22:08)
[2022-03-06 08:51] LABS: HEMATOCRIT 28.1 % (32.4-45.2); HEMOGLOBIN 9.3 GM/dL (10.7-15.3); MCH 28.2 pg (25.7-33.7); MCHC 33.2 g/dl (32.0-36.0); MEAN CELL VOLUME 84.8 fl (80-96); MEAN PLT VOLUME 8.2 fl (7.5-11.1); PLATELET COUNT 290 10^3/uL (134-434); RBC 3.31 M/mm3 (3.60-5.2); RDW 15.8 % (11.6-15.6); WHITE BLOOD COUNT 11.2 K/mm3 (4.0-10.0)
[2022-03-06 09:03] LABS: INR 3.45 (0.83-1.09); PROTHROMBIN TIME (PATIENT) 40.2 SEC (9.7-13.0)
[2022-03-06] MEDS: DOCUSATE SODIUM 100 MG CAPSULE (FP) PO SCH (09:04)
[2022-03-06] MEDS: PANTOPRAZOLE 40 MG TABLET PO SCH (09:04)
[2022-03-06] MEDS: FERROUS SO4 325 MG TABLET (FP) PO SCH (09:04)
[2022-03-06 09:15] LABS: BLOOD UREA NITROGEN 12.2 mg/dL (7-18); CALCIUM 8.6 mg/dL (8.5-10.1)
[2022-03-06 09:16] LABS: ALBUMIN 2.5 g/dl (3.4-5.0); CREATININE 0.5 mg/dL (0.55-1.3)
[2022-03-06 09:17] LABS: BILIRUBIN,TOTAL 0.7 mg/dL (0.2-1)
[2022-03-06 09:18] LABS: TOT PROT 6.2 g/dl (6.4-8.2)
[2022-03-06 09:31] LABS: ANISOCYTOSIS 0; HELMET CELLS 0; HOWELL-JOLLY BODIES 0; MACROCYTOSIS 0; OVALOCYTE 0; ROULEAU 0; SICKELED CELLS 0; TARGET CELLS 0; TEAR DROP CELLS 0; TOXIC GRANULATION 0
[2022-03-06] MEDS: WARFARIN NA 3 MG TABLET PO SCH (17:13)
[2022-03-06] MEDS: LOSARTAN POTASSIUM 50 MG TABLET PO SCH (22:09)
[2022-03-06] MEDS: ATORVASTATIN CA 10 MG TABLET (FP) PO SCH (22:09)
[2022-03-07] MEDS: SODIUM CHLORIDE 1,000 ML IV SCH ×2 (00:05→16:59)
[2022-03-07] MEDS: LEVOTHYROXINE NA 100 MCG TABLET (FP) PO SCH (06:27)
[2022-03-07 09:08] LABS: HEMATOCRIT 28.6 % (32.4-45.2); HEMOGLOBIN 9.6 GM/dL (10.7-15.3); MCH 28.7 pg (25.7-33.7); MCHC 33.7 g/dl (32.0-36.0); MEAN CELL VOLUME 85.3 fl (80-96); MEAN PLT VOLUME 7.9 fl (7.5-11.1); PLATELET COUNT 335 10^3/uL (134-434); RBC 3.35 M/mm3 (3.60-5.2); RDW 15.9 % (11.6-15.6); WHITE BLOOD COUNT 9.9 K/mm3 (4.0-10.0)
[2022-03-07 09:58] LABS: ALBUMIN 2.5 g/dl (3.4-5.0); BILIRUBIN,TOTAL 0.7 mg/dL (0.2-1); BLOOD UREA NITROGEN 14.9 mg/dL (7-18); CALCIUM 8.5 mg/dL (8.5-10.1); CREATININE 0.7 mg/dL (0.55-1.3); TOT PROT 6.3 g/dl (6.4-8.2)
[2022-03-07] MEDS: PANTOPRAZOLE 40 MG TABLET PO SCH (09:59)
[2022-03-07] MEDS: DOCUSATE SODIUM 100 MG CAPSULE (FP) PO SCH (09:59)
[2022-03-07] MEDS: FERROUS SO4 325 MG TABLET (FP) PO SCH (09:59)
[2022-03-07] MEDS: traMADol HCL 50 MG TABLET PO PRN ×2 (10:03→16:58)
[2022-03-07] MEDS: WARFARIN NA 3 MG TABLET PO SCH (17:00)
[2022-03-07] MEDS: LOSARTAN POTASSIUM 50 MG TABLET PO SCH (21:32)
[2022-03-07] MEDS: ATORVASTATIN CA 10 MG TABLET (FP) PO SCH (21:32)
[2022-03-08] MEDS: traMADol HCL 50 MG TABLET PO PRN ×3 (03:51→21:45)
[2022-03-08] MEDS: LEVOTHYROXINE NA 100 MCG TABLET (FP) PO SCH (06:13)
[2022-03-08 09:33] LABS: HEMATOCRIT 29.1 % (32.4-45.2); HEMOGLOBIN 9.5 GM/dL (10.7-15.3); MCH 27.9 pg (25.7-33.7); MCHC 32.8 g/dl (32.0-36.0); MEAN CELL VOLUME 85.1 fl (80-96); MEAN PLT VOLUME 8.3 fl (7.5-11.1); PLATELET COUNT 394 10^3/uL (134-434); RBC 3.42 M/mm3 (3.60-5.2); RDW 15.7 % (11.6-15.6); WHITE BLOOD COUNT 11.2 K/mm3 (4.0-10.0)
[2022-03-08 09:53] LABS: CALCIUM 8.8 mg/dL (8.5-10.1)
[2022-03-08 09:54] LABS: ALBUMIN 2.6 g/dl (3.4-5.0); BLOOD UREA NITROGEN 12.3 mg/dL (7-18)
[2022-03-08 09:57] LABS: CREATININE 0.6 mg/dL (0.55-1.3)
[2022-03-08] MEDS: PANTOPRAZOLE 40 MG TABLET PO SCH (09:58)
[2022-03-08] MEDS: FERROUS SO4 325 MG TABLET (FP) PO SCH (09:58)
[2022-03-08] MEDS: DOCUSATE SODIUM 100 MG CAPSULE (FP) PO SCH (09:58)
[2022-03-08 09:59] LABS: BILIRUBIN,TOTAL 0.7 mg/dL (0.2-1); TOT PROT 6.5 g/dl (6.4-8.2)
[2022-03-08] MEDS: SODIUM CHLORIDE 1,000 ML IV SCH (18:23)
[2022-03-08 21:31] LABS: INR 3.33 (0.83-1.09); PROTHROMBIN TIME (PATIENT) 38.8 SEC (9.7-13.0)
[2022-03-08] MEDS: ATORVASTATIN CA 10 MG TABLET (FP) PO SCH (21:45)
[2022-03-08] MEDS: LOSARTAN POTASSIUM 50 MG TABLET PO SCH (21:45)
[2022-03-08] MEDS: WARFARIN NA 3 MG TABLET PO SCH (21:52)
[2022-03-09] MEDS ORDERED: WARFARIN NA 2.5 MG TABLET PO ONE (00:21)
[2022-03-09] MEDS: traMADol HCL 50 MG TABLET PO PRN ×2 (05:50→18:24)
[2022-03-09] MEDS: LEVOTHYROXINE NA 100 MCG TABLET (FP) PO SCH (06:06)
[2022-03-09] MEDS: PANTOPRAZOLE 40 MG TABLET PO SCH (09:54)
[2022-03-09] MEDS: DOCUSATE SODIUM 100 MG CAPSULE (FP) PO SCH (09:55)
[2022-03-09] MEDS: FERROUS SO4 325 MG TABLET (FP) PO SCH (09:55)
[2022-03-09 10:07] LABS: HEMATOCRIT 27.8 % (32.4-45.2); HEMOGLOBIN 9.2 GM/dL (10.7-15.3); MCH 28.2 pg (25.7-33.7); MCHC 33.2 g/dl (32.0-36.0); MEAN PLT VOLUME 8.2 fl (7.5-11.1); PLATELET COUNT 369 10^3/uL (134-434); RBC 3.27 M/mm3 (3.60-5.2); RDW 15.8 % (11.6-15.6)
[2022-03-09 10:12] LABS: INR 2.84 (0.83-1.09)
[2022-03-09 10:24] LABS: CALCIUM 8.9 mg/dL (8.5-10.1)
[2022-03-09 10:25] LABS: ALBUMIN 2.3 g/dl (3.4-5.0); BLOOD UREA NITROGEN 14.7 mg/dL (7-18)
[2022-03-09 10:28] LABS: CREATININE 0.6 mg/dL (0.55-1.3)
[2022-03-09 10:29] LABS: BILIRUBIN,TOTAL 0.6 mg/dL (0.2-1); TOT PROT 6.2 g/dl (6.4-8.2)
[2022-03-09] MEDS: WARFARIN NA 2.5 MG TABLET PO SCH (18:25)
[2022-03-09] MEDS: ATORVASTATIN CA 10 MG TABLET (FP) PO SCH (21:16)
[2022-03-09] MEDS: LOSARTAN POTASSIUM 50 MG TABLET PO SCH (21:16)
[2022-03-10] MEDS ORDERED: traMADol HCL 50 MG TABLET PO ONE (00:28)
[2022-03-10] MEDS: LEVOTHYROXINE NA 100 MCG TABLET (FP) PO SCH (06:00)
[2022-03-10 08:52] LABS: HEMATOCRIT 29.3 % (32.4-45.2); HEMOGLOBIN 9.8 GM/dL (10.7-15.3); MCH 28.4 pg (25.7-33.7); MCHC 33.5 g/dl (32.0-36.0); MEAN CELL VOLUME 84.8 fl (80-96); MEAN PLT VOLUME 8.2 fl (7.5-11.1); PLATELET COUNT 425 10^3/uL (134-434); RBC 3.46 M/mm3 (3.60-5.2); RDW 15.9 % (11.6-15.6); WHITE BLOOD COUNT 10.3 K/mm3 (4.0-10.0)
[2022-03-10 09:00] LABS: INR 2.65 (0.83-1.09); PROTHROMBIN TIME (PATIENT) 30.8 SEC (9.7-13.0)
[2022-03-10] MEDS: DOCUSATE SODIUM 100 MG CAPSULE (FP) PO SCH (09:34)
[2022-03-10] MEDS: FERROUS SO4 325 MG TABLET (FP) PO SCH (09:34)
[2022-03-10] MEDS: PANTOPRAZOLE 40 MG TABLET PO SCH (09:34)
[2022-03-10] MEDS ORDERED: ONDANSETRON *ODT* 4 MG TABLET SL ONE (13:13)
[2022-03-10 13:18] LABS: ALBUMIN 2.6 g/dl (3.4-5.0); BLOOD UREA NITROGEN 17.2 mg/dL (7-18)
[2022-03-10 13:19] LABS: BILIRUBIN,TOTAL 0.6 mg/dL (0.2-1); CREATININE 0.7 mg/dL (0.55-1.3); TOT PROT 6.8 g/dl (6.4-8.2)
[2022-03-10] MEDS ORDERED: LACTATED RINGERS SOLUTION 1,000 ML/1,000 ML INFUS.BAG IV SCH ×3 (16:00→16:15)
[2022-03-10] MEDS ORDERED: LACTATED RINGERS SOLUTION 1000 ML INFUS.BAG IV ONE (16:02)
[2022-03-10] MEDS: traMADol HCL 50 MG TABLET PO PRN (16:18)
[2022-03-10] MEDS: WARFARIN NA 2.5 MG TABLET PO SCH (17:09)
[2022-03-10] MEDS: ATORVASTATIN CA 10 MG TABLET (FP) PO SCH (22:35)
[2022-03-11] MEDS: LEVOTHYROXINE NA 100 MCG TABLET (FP) PO SCH (06:06)
[2022-03-11 08:31] LABS: HEMATOCRIT 27.8 % (32.4-45.2); HEMOGLOBIN 9.3 GM/dL (10.7-15.3); MCH 28.3 pg (25.7-33.7); MCHC 33.5 g/dl (32.0-36.0); MEAN CELL VOLUME 84.3 fl (80-96); PLATELET COUNT 438 10^3/uL (134-434); RDW 15.4 % (11.6-15.6); WHITE BLOOD COUNT 9.5 K/mm3 (4.0-10.0)
[2022-03-11 08:42] LABS: BLOOD UREA NITROGEN 18.7 mg/dL (7-18); CALCIUM 8.8 mg/dL (8.5-10.1); MAGNESIUM 2.1 mg/dL (1.8-2.4)
[2022-03-11 08:45] LABS: PHOSPHOROUS 3.9 mg/dL (2.5-4.9)
[2022-03-11 08:46] LABS: CREATININE 0.7 mg/dL (0.55-1.3)
[2022-03-11] MEDS: traMADol HCL 50 MG TABLET PO PRN ×2 (09:25→20:07)
[2022-03-11] MEDS: LOSARTAN POTASSIUM 50 MG TABLET PO SCH ×2 (09:26→21:57)
[2022-03-11] MEDS: FERROUS SO4 325 MG TABLET (FP) PO SCH (09:26)
[2022-03-11] MEDS: DOCUSATE SODIUM 100 MG CAPSULE (FP) PO SCH (09:27)
[2022-03-11] MEDS: PANTOPRAZOLE 40 MG TABLET PO SCH (09:27)
[2022-03-11 09:35] LABS: ANISOCYTOSIS 1+; MACROCYTOSIS 0
[2022-03-11] MEDS: POLYETHYLENE GLYCOL (HEALTHYLAX) 3350 17 GM PACKET PO SCH (14:13)
[2022-03-11] MEDS: SENNOSIDES 8.6MG TABLET (FP) PO SCH ×2 (14:13→21:57)
[2022-03-11] MEDS: WARFARIN NA 2.5 MG TABLET PO SCH (17:54)
[2022-03-11] MEDS: ATORVASTATIN CA 10 MG TABLET (FP) PO SCH (21:57)
[2022-03-12] MEDS: LEVOTHYROXINE NA 100 MCG TABLET (FP) PO SCH (06:21)
[2022-03-12] MEDS: traMADol HCL 50 MG TABLET PO PRN ×2 (06:21→14:19)
[2022-03-12 08:46] LABS: BASO % 0.4 % (0-2.0); EOS % 3.7 % (0-4.5); HEMATOCRIT 30.3 % (32.4-45.2); LYMPH % 18.9 % (8-40); MCH 28.1 pg (25.7-33.7); MCHC 32.9 g/dl (32.0-36.0); MEAN CELL VOLUME 85.4 fl (80-96); MEAN PLT VOLUME 8.1 fl (7.5-11.1); PLATELET COUNT 502 10^3/uL (134-434); RBC 3.55 M/mm3 (3.60-5.2); RDW 15.7 % (11.6-15.6); WHITE BLOOD COUNT 10.7 K/mm3 (4.0-10.0)
[2022-03-12 09:05] LABS: CALCIUM 9.3 mg/dL (8.5-10.1)
[2022-03-12 09:06] LABS: BLOOD UREA NITROGEN 17.9 mg/dL (7-18)
[2022-03-12 09:09] LABS: CREATININE 0.7 mg/dL (0.55-1.3)
[2022-03-12] MEDS: POLYETHYLENE GLYCOL (HEALTHYLAX) 3350 17 GM PACKET PO SCH (09:30)
[2022-03-12] MEDS: PANTOPRAZOLE 40 MG TABLET PO SCH (09:31)
[2022-03-12] MEDS: FERROUS SO4 325 MG TABLET (FP) PO SCH (09:31)
[2022-03-12] MEDS: LOSARTAN POTASSIUM 50 MG TABLET PO SCH ×2 (09:31→21:38)
[2022-03-12] MEDS: DOCUSATE SODIUM 100 MG CAPSULE (FP) PO SCH (09:31)
[2022-03-12] MEDS: SENNOSIDES 8.6MG TABLET (FP) PO SCH ×2 (09:31→21:38)
[2022-03-12 10:43] LABS: ANISOCYTOSIS 1+; MACROCYTOSIS 0
[2022-03-12 13:28] LABS: INR 2.74 (0.83-1.09); PROTHROMBIN TIME (PATIENT) 31.8 SEC (9.7-13.0)
[2022-03-12] MEDS: WARFARIN NA 2.5 MG TABLET PO SCH (17:02)
[2022-03-12] MEDS: ATORVASTATIN CA 10 MG TABLET (FP) PO SCH (21:39)
[2022-03-13] MEDS: traMADol HCL 50 MG TABLET PO PRN ×2 (00:44→15:07)
[2022-03-13] MEDS: LEVOTHYROXINE NA 100 MCG TABLET (FP) PO SCH (06:05)
[2022-03-13] MEDS ORDERED: BISACODYL 10 MG SUPP.RECT PR ONE (07:53)
[2022-03-13] MEDS ORDERED: BISACODYL 5 MG TABLET.DR (FP) PO PRN (07:53)
[2022-03-13 08:53] LABS: HEMATOCRIT 30.3 % (32.4-45.2); HEMOGLOBIN 10.1 GM/dL (10.7-15.3); MCHC 33.1 g/dl (32.0-36.0); MEAN CELL VOLUME 84.6 fl (80-96); MEAN PLT VOLUME 8.4 fl (7.5-11.1); PLATELET COUNT 551 10^3/uL (134-434); RBC 3.59 M/mm3 (3.60-5.2); RDW 15.8 % (11.6-15.6); WHITE BLOOD COUNT 9.3 K/mm3 (4.0-10.0)
[2022-03-13 09:06] LABS: CALCIUM 9.1 mg/dL (8.5-10.1)
[2022-03-13 09:10] LABS: CREATININE 0.8 mg/dL (0.55-1.3)
[2022-03-13] MEDS: SENNOSIDES 8.6MG TABLET (FP) PO SCH (09:13)
[2022-03-13] MEDS: POLYETHYLENE GLYCOL (HEALTHYLAX) 3350 17 GM PACKET PO SCH (09:13)
[2022-03-13] MEDS: DOCUSATE SODIUM 100 MG CAPSULE (FP) PO SCH (09:13)
[2022-03-13] MEDS: PANTOPRAZOLE 40 MG TABLET PO SCH (09:14)
[2022-03-13] MEDS: LOSARTAN POTASSIUM 50 MG TABLET PO SCH (09:14)
[2022-03-13 10:15] LABS: ANISOCYTOSIS 3+; MACROCYTOSIS 0
[2022-03-13 15:07] VITALS: RESP 18
[2022-03-13] MEDS: WARFARIN NA 2.5 MG TABLET PO SCH (18:00)
[2022-03-14 04:13] VITALS: BP 147/78; PULSE 90; TEMP 97.9
== END 2022-03-13 20:45 | DRG 272 ==
LOC: JOR 09:12 → JERBED 10:12 → JICU 21:41 → J7W 03-02 19:00
PROVIDERS: ADMIT Internal Medicine; ATTEND Internal Medicine
PROC: 04CL3ZZ Extirpation of Matter from Left Femoral Artery, Percutaneous Approach (ICD-10-PCS; 2022-02-26)
PROC: 047L3ZZ Dilation of Left Femoral Artery, Percutaneous Approach (ICD-10-PCS; 2022-02-26)
PROC: B40GYZZ Plain Radiography of Left Lower Extremity Arteries using Other Contrast (ICD-10-PCS; 2022-02-26)
PROC: B41DZZZ Fluoroscopy of Aorta and Bilateral Lower Extremity Arteries (ICD-10-PCS; principal; 2022-02-26 16:00)
PROC: 047L3DZ Dilation of Left Femoral Artery with Intraluminal Device, Percutaneous Approach (ICD-10-PCS; 2022-02-27)
PROC: 047S3ZZ Dilation of Left Posterior Tibial Artery, Percutaneous Approach (ICD-10-PCS; 2022-02-27)
PROC: B40GYZZ Plain Radiography of Left Lower Extremity Arteries using Other Contrast (ICD-10-PCS; 2022-02-27)
PROC: 3E03317 Introduction of Other Thrombolytic into Peripheral Vein, Percutaneous Approach (ICD-10-PCS; 2022-02-27)
DX: T82.856A Stenosis of peripheral vascular stent, initial encounter (principal); I10 Essential (primary) hypertension; E78.5 Hyperlipidemia, unspecified; I73.9 Peripheral vascular disease, unspecified; E03.9 Hypothyroidism, unspecified; Y83.8 Other surgical procedures as the cause of abnormal reaction of the patient, or of later complication, without mention of misadventure at the time of the procedure
CPT/HCPCS: 36415; 71045-TC-FY; 76000-TC-FY; 80048; 80053; 82272; 83735; 84100; 85025; 85027; 85384; 85610; 85730; 86850; 86900; 86901; 93005; 93010; 94010; 94760; 94761; 97116-GP; 97162-GP; 99285-25; C9803-CS; G0463-25; J1644; J2997; Q0162; U0003; U0005

== ENCOUNTER 2022-03-24 10:39 | Inpatient (IN) | payer OTHER ==
[2022-03-24] MEDS ORDERED: ACETAMINOPHEN 1000 MG/100 ML BAG IVPB ONE (12:08)
[2022-03-24] MEDS ORDERED: ACETAMINOPHEN INJECTION 100 ML IVPB ONE (12:11)
[2022-03-24 12:21] LABS: BASO % 0.5 % (0-2.0); EOS % 1.6 % (0-4.5); HEMATOCRIT 34.9 % (32.4-45.2); HEMOGLOBIN 11.4 GM/dL (10.7-15.3); LYMPH % 15.9 % (8-40); MCH 27.7 pg (25.7-33.7); MCHC 32.8 g/dl (32.0-36.0); MEAN CELL VOLUME 84.6 fl (80-96); MEAN PLT VOLUME 9.1 fl (7.5-11.1); MONO % 9.9 % (3.8-10.2); NEUT % 72.1 % (42.8-82.8); PLATELET COUNT 446 10^3/uL (134-434); RBC 4.12 M/mm3 (3.60-5.2); RDW 16.2 % (11.6-15.6); WHITE BLOOD COUNT 9.8 K/mm3 (4.0-10.0)
[2022-03-24 12:29] LABS: INR 1.52 (0.83-1.09); PROTHROMBIN TIME (PATIENT) 17.6 SEC (9.7-13.0)
[2022-03-24 12:32] LABS: ACTIVATED PTT 38.1 SECONDS (25.2-36.5)
[2022-03-24 12:46] LABS: CALCIUM 9.7 mg/dL (8.5-10.1)
[2022-03-24 12:47] LABS: ALBUMIN 3.4 g/dl (3.4-5.0); BLOOD UREA NITROGEN 14.2 mg/dL (7-18)
[2022-03-24 12:50] LABS: CREATININE 0.8 mg/dL (0.55-1.3)
[2022-03-24 12:52] LABS: BILIRUBIN,TOTAL 0.6 mg/dL (0.2-1); TOT PROT 7.8 g/dl (6.4-8.2)
[2022-03-24] MEDS ORDERED: HEPARIN NA (PORCINE) 5,000 UNITS/ML 1ML VIAL IVPUSH ONE (15:19)
[2022-03-24] MEDS ORDERED: HEPARIN NA (PORCINE) 5,000 UNITS/ML 1ML VIAL IVPUSH PRN ×2 (15:20)
[2022-03-24] MEDS ORDERED: HEPARIN INFUSION - 25,000 UNITS/500 ML INFUS.BAG IVPB ONE (15:33)
[2022-03-24] MEDS ORDERED: HEPARIN NA (PORCINE) 5,000 UNITS/ML 1ML VIAL ONE (15:33)
[2022-03-24] MEDS: HEPARIN INFUSION - 25,000 UNITS/500 ML INFUS.BAG IVPB SCH (15:57)
[2022-03-24] MEDS ORDERED: traMADol HCL 50 MG TABLET PO PRN (16:20)
[2022-03-24] MEDS ORDERED: CEFAZOLIN 1 GM in DEXTROSE 5%-WATER - 50 ML IVPB SCH (18:00)
[2022-03-24] MEDS ORDERED: WARFARIN NA 2.5 MG TABLET PO SCH (18:00)
[2022-03-24] MEDS: CEFAZOLIN 1 GM in DEXTROSE 5%-WATER - 50 ML IVPB SCH (21:25)
[2022-03-24] MEDS: LOSARTAN POTASSIUM 50 MG TABLET PO SCH (22:40)
[2022-03-24] MEDS: BUDESONIDE/FORMETEROL FUMARATE 80/4.5 mcg INHALER IH SCH (22:41)
[2022-03-25] MEDS: HEPARIN INFUSION - 25,000 UNITS/500 ML INFUS.BAG IVPB SCH (00:28)
[2022-03-25] MEDS: CEFAZOLIN 1 GM in DEXTROSE 5%-WATER - 50 ML IVPB SCH ×2 (01:48→09:38)
[2022-03-25] MEDS ORDERED: LEVOTHYROXINE NA 100 MCG TABLET (FP) PO SCH (07:00)
[2022-03-25 09:02] LABS: HEMATOCRIT 31.6 % (32.4-45.2); HEMOGLOBIN 10.4 GM/dL (10.7-15.3); LYMPH % 24.5 % (8-40); MCH 28.1 pg (25.7-33.7); MEAN CELL VOLUME 85.2 fl (80-96); MEAN PLT VOLUME 9.6 fl (7.5-11.1); MONO % 10.4 % (3.8-10.2); NEUT % 60.1 % (42.8-82.8); PLATELET COUNT 371 10^3/uL (134-434); RBC 3.71 M/mm3 (3.60-5.2); WHITE BLOOD COUNT 7.5 K/mm3 (4.0-10.0)
[2022-03-25 09:30] LABS: CALCIUM 8.8 mg/dL (8.5-10.1)
[2022-03-25 09:32] LABS: CREATININE 0.8 mg/dL (0.55-1.3)
[2022-03-25 09:34] LABS: TOT PROT 6.7 g/dl (6.4-8.2)
[2022-03-25] MEDS: LOSARTAN POTASSIUM 50 MG TABLET PO SCH (09:37)
[2022-03-25] MEDS: BUDESONIDE/FORMETEROL FUMARATE 80/4.5 mcg INHALER IH SCH (09:40)
[2022-03-25 09:44] LABS: ACTIVATED PTT 71.4 SECONDS (25.2-36.5); INR 1.41 (0.83-1.09); PROTHROMBIN TIME (PATIENT) 16.3 SEC (9.7-13.0)
[2022-03-25] MEDS ORDERED: PANTOPRAZOLE 40 MG TABLET PO SCH (10:00)
[2022-03-25] MEDS ORDERED: POLYETHYLENE GLYCOL (HEALTHYLAX) 3350 17 GM PACKET PO SCH (10:00)
[2022-03-25] MEDS ORDERED: DOCUSATE SODIUM 100 MG CAPSULE (FP) PO SCH (10:00)
[2022-03-25] MEDS ORDERED: HEPARIN NA (PORCINE) 5,000 UNITS/ML 1ML VIAL ONE ×3 (12:15→16:29)
[2022-03-25] MEDS ORDERED: POVIDONE-IODINE OINTMENT 10% - 28.4 GM TUBE ONE (12:15)
[2022-03-25] MEDS ORDERED: LIDOCAINE HCL 1%, 10 MG/ML (20ML VIAL) ONE (12:15)
[2022-03-25] MEDS ORDERED: LIDOCAINE HCL/PF 2% SDV 5ML VIAL ONE (12:52)
[2022-03-25] MEDS ORDERED: PROPOFOL 20 ML ONE (12:53)
[2022-03-25] MEDS ORDERED: MIDAZOLAM HCL 2 MG/2 ML SINGLE DOSE VIAL ONE (12:53)
[2022-03-25] MEDS ORDERED: ALBUMIN HUMAN 5% 250 ML IV SOLUTION IV ONE ×2 (13:15→18:33)
[2022-03-25] MEDS ORDERED: ALBUMIN HUMAN 25% 12.5 GM/50 ML VIAL IV ONE ×2 (13:15→18:33)
[2022-03-25] MEDS ORDERED: ROCURONIUM BROMIDE 50 MG/5 ML SYRINGE ONE (14:36)
[2022-03-25] MEDS ORDERED: HEPARIN NA (PORCINE) 5,000 UNITS/ML 1ML VIAL SQ ONE (14:37)
[2022-03-25] MEDS ORDERED: ceFAZolin SODIUM 1 GM VIAL IVPB ONE ×3 (14:38→14:50)
[2022-03-25] MEDS ORDERED: ETOMIDATE 20 MG/10 ML AMPUL IVPUSH ONE (14:42)
[2022-03-25] MEDS ORDERED: ceFAZolin SODIUM 1 GM VIAL ONE (14:51)
[2022-03-25] MEDS ORDERED: NEOSTIGMINE METHYLSULFATE 0.5 MG/ML - 10 ML MDV ONE (17:12)
[2022-03-25] MEDS ORDERED: GLYCOPYRROLATE 0.2 MG/1 ML VIAL ONE (17:12)
[2022-03-25] MEDS ORDERED: METOPROLOL TARTRATE 5 MG/5 ML VIAL ONE ×2 (17:18→17:24)
[2022-03-25] MEDS ORDERED: POVIDONE-IODINE OINTMENT 10% - 28.4 GM TUBE TP ONE (17:28)
[2022-03-25] MEDS ORDERED: PROMETHAZINE HCL 25 MG/1 ML VIAL IVPUSH PRN (17:45)
[2022-03-25] MEDS ORDERED: ONDANSETRON 4 MG/2 ML VIAL IVPUSH PRN ×2 (17:45→23:59)
[2022-03-25] MEDS ORDERED: traMADol HCL 50 MG TABLET PO PRN (18:33)
[2022-03-25] MEDS ORDERED: HYDROmorphone HCl 2 MG/ML VIAL ONE (20:14)
[2022-03-25] MEDS ORDERED: HYDROmorphone HCl 2 MG/ML VIAL IVPUSH ONE ×3 (20:19→21:23)
[2022-03-25] MEDS: LACTATED RINGERS SOLUTION 1,000 ML IV SCH (21:47)
[2022-03-25] MEDS ORDERED: CHLORHEXIDINE GLUCONATE 4% CLEANSER FOR DECOLONIZATION TP SCH (22:00)
[2022-03-25] MEDS ORDERED: BUDESONIDE/FORMETEROL FUMARATE 80/4.5 mcg INHALER IH SCH (22:00)
[2022-03-25] MEDS ORDERED: LOSARTAN POTASSIUM 50 MG TABLET PO SCH (22:00)
[2022-03-25] MEDS ORDERED: MUPIROCIN 2% TOPICAL OINTMENT FOR DECOLONIZATION NS SCH ×2 (22:00→23:15)
[2022-03-25] MEDS ORDERED: HYDROmorphone HCl 2 MG/ML VIAL IVPUSH PRN (22:19)
[2022-03-26] MEDS: LACTATED RINGERS SOLUTION 1,000 ML IV SCH
[2022-03-26] MEDS ORDERED: traMADol HCL 50 MG TABLET PO PRN (01:07)
[2022-03-26] MEDS ORDERED: HYDROmorphone HCl 2 MG/ML VIAL IVPUSH PRN (01:07)
[2022-03-26] MEDS ORDERED: LACTATED RINGERS SOLUTION 1,000 ML IV SCH (01:07)
[2022-03-26] MEDS ORDERED: ALBUMIN HUMAN 25% 12.5 GM/50 ML VIAL IV ONE (01:07)
[2022-03-26] MEDS ORDERED: ALBUMIN HUMAN 5% 250 ML IV SOLUTION IV ONE (01:07)
[2022-03-26] MEDS: CEFAZOLIN 1 GM in DEXTROSE 5%-WATER - 50 ML IVPB SCH ×4 (01:42→17:51)
[2022-03-26] MEDS ORDERED: CEFAZOLIN 1 GM in DEXTROSE 5%-WATER - 50 ML IVPB SCH (02:00)
[2022-03-26] MEDS ORDERED: HEPARIN NA (PORCINE) 5,000 UNITS/ML 1ML VIAL SQ SCH (06:00)
[2022-03-26] MEDS: HEPARIN NA (PORCINE) 5,000 UNITS/ML 1ML VIAL SQ SCH ×3 (06:21→21:32)
[2022-03-26] MEDS ORDERED: LEVOTHYROXINE NA 100 MCG TABLET (FP) PO SCH ×2 (07:00)
[2022-03-26 07:22] LABS: BASO % 0.4 % (0-2.0); EOS % 0.6 % (0-4.5); HEMOGLOBIN 9.6 GM/dL (10.7-15.3); LYMPH % 8.4 % (8-40); MCH 28.2 pg (25.7-33.7); MCHC 33.2 g/dl (32.0-36.0); MEAN CELL VOLUME 84.9 fl (80-96); MEAN PLT VOLUME 8.7 fl (7.5-11.1); MONO % 13.3 % (3.8-10.2); NEUT % 77.3 % (42.8-82.8); PLATELET COUNT 301 10^3/uL (134-434); RBC 3.42 M/mm3 (3.60-5.2); RDW 15.7 % (11.6-15.6); WHITE BLOOD COUNT 9.9 K/mm3 (4.0-10.0)
[2022-03-26 07:55] LABS: ALBUMIN 2.6 g/dl (3.4-5.0); BLOOD UREA NITROGEN 10.9 mg/dL (7-18); CALCIUM 8.6 mg/dL (8.5-10.1); MAGNESIUM 1.8 mg/dL (1.8-2.4)
[2022-03-26 07:57] LABS: BILIRUBIN,TOTAL 0.5 mg/dL (0.2-1); TOT PROT 5.8 g/dl (6.4-8.2)
[2022-03-26 07:58] LABS: CREATININE 0.6 mg/dL (0.55-1.3); PHOSPHOROUS 3.1 mg/dL (2.5-4.9)
[2022-03-26] MEDS ORDERED: HYDROmorphone HCl 2 MG/ML VIAL IVPUSH ONE (09:24)
[2022-03-26] MEDS: POLYETHYLENE GLYCOL (HEALTHYLAX) 3350 17 GM PACKET PO SCH ×2 (09:35→19:05)
[2022-03-26] MEDS: DOCUSATE SODIUM 100 MG CAPSULE (FP) PO SCH ×2 (09:35→19:04)
[2022-03-26] MEDS ORDERED: POLYETHYLENE GLYCOL (HEALTHYLAX) 3350 17 GM PACKET PO SCH (10:00)
[2022-03-26] MEDS ORDERED: LOSARTAN POTASSIUM 50 MG TABLET PO SCH (10:00)
[2022-03-26] MEDS ORDERED: DOCUSATE SODIUM 100 MG CAPSULE (FP) PO SCH (10:00)
[2022-03-26] MEDS ORDERED: MUPIROCIN 2% TOPICAL OINTMENT FOR DECOLONIZATION NS SCH (10:00)
[2022-03-26] MEDS ORDERED: BUDESONIDE/FORMETEROL FUMARATE 80/4.5 mcg INHALER IH SCH (10:00)
[2022-03-26] MEDS ORDERED: PANTOPRAZOLE 40 MG TABLET PO SCH ×2 (10:00)
[2022-03-26 11:35] LABS: HEMATOCRIT 28.4 % (32.4-45.2); HEMOGLOBIN 9.4 GM/dL (10.7-15.3); MCH 28.1 pg (25.7-33.7); MCHC 33.1 g/dl (32.0-36.0); MEAN CELL VOLUME 84.7 fl (80-96); MEAN PLT VOLUME 8.5 fl (7.5-11.1); PLATELET COUNT 304 10^3/uL (134-434); RBC 3.35 M/mm3 (3.60-5.2); RDW 15.9 % (11.6-15.6); WHITE BLOOD COUNT 10.7 K/mm3 (4.0-10.0)
[2022-03-26] MEDS ORDERED: ACETAMINOPHEN 1000 MG/100 ML BAG IVPB SCH (11:45)
[2022-03-26 13:02] VITALS: BMI 31.3
[2022-03-26] MEDS: HEPARIN INFUSION - 25,000 UNITS/500 ML INFUS.BAG IVPB SCH (17:51)
[2022-03-26] MEDS ORDERED: ONDANSETRON 4 MG/2 ML VIAL IVPUSH PRN (18:56)
[2022-03-26] MEDS: ACETAMINOPHEN 1000 MG/100 ML BAG IVPB SCH (20:36)
[2022-03-26] MEDS: traMADol HCL 50 MG TABLET PO PRN (21:30)
[2022-03-26] MEDS: LOSARTAN POTASSIUM 50 MG TABLET PO SCH ×2 (21:30→22:43)
[2022-03-26] MEDS: BUDESONIDE/FORMETEROL FUMARATE 80/4.5 mcg INHALER IH SCH (21:56)
[2022-03-26] MEDS ORDERED: CHLORHEXIDINE GLUCONATE 4% CLEANSER FOR DECOLONIZATION TP SCH ×2 (22:00)
[2022-03-27] MEDS: CEFAZOLIN 1 GM in DEXTROSE 5%-WATER - 50 ML IVPB SCH ×3 (01:08→17:16)
[2022-03-27] MEDS: ACETAMINOPHEN 1000 MG/100 ML BAG IVPB SCH (03:02)
[2022-03-27] MEDS: traMADol HCL 50 MG TABLET PO PRN ×2 (05:45→21:23)
[2022-03-27] MEDS: HEPARIN NA (PORCINE) 5,000 UNITS/ML 1ML VIAL SQ SCH ×3 (05:45→21:23)
[2022-03-27] MEDS: LEVOTHYROXINE NA 100 MCG TABLET (FP) PO SCH (06:14)
[2022-03-27] MEDS: DOCUSATE SODIUM 100 MG CAPSULE (FP) PO SCH (09:09)
[2022-03-27] MEDS: POLYETHYLENE GLYCOL (HEALTHYLAX) 3350 17 GM PACKET PO SCH ×2 (09:09→09:36)
[2022-03-27] MEDS: PANTOPRAZOLE 40 MG TABLET PO SCH (09:09)
[2022-03-27] MEDS: BUDESONIDE/FORMETEROL FUMARATE 80/4.5 mcg INHALER IH SCH ×2 (09:10→21:25)
[2022-03-27] MEDS: LOSARTAN POTASSIUM 50 MG TABLET PO SCH ×3 (09:14→21:23)
[2022-03-27 10:28] LABS: BASO % 0.3 % (0-2.0); EOS % 2.3 % (0-4.5); HEMATOCRIT 26.1 % (32.4-45.2); HEMOGLOBIN 8.6 GM/dL (10.7-15.3); MCHC 32.9 g/dl (32.0-36.0); MEAN PLT VOLUME 8.5 fl (7.5-11.1); MONO % 13.1 % (3.8-10.2); NEUT % 74.3 % (42.8-82.8); PLATELET COUNT 245 10^3/uL (134-434); RBC 3.07 M/mm3 (3.60-5.2); WHITE BLOOD COUNT 9.8 K/mm3 (4.0-10.0)
[2022-03-27 10:59] LABS: CALCIUM 8.4 mg/dL (8.5-10.1)
[2022-03-27 11:00] LABS: ALBUMIN 2.3 g/dl (3.4-5.0); BLOOD UREA NITROGEN 9.2 mg/dL (7-18); MAGNESIUM 1.7 mg/dL (1.8-2.4)
[2022-03-27 11:03] LABS: CREATININE 0.6 mg/dL (0.55-1.3); PHOSPHOROUS 2.7 mg/dL (2.5-4.9)
[2022-03-27 11:04] LABS: BILIRUBIN,TOTAL 0.4 mg/dL (0.2-1); TOT PROT 5.4 g/dl (6.4-8.2)
[2022-03-27] MEDS: LACTATED RINGERS SOLUTION 1,000 ML/1,000 ML INFUS.BAG IV SCH (12:02)
[2022-03-27] MEDS ORDERED: MAGNESIUM SULF 50% (8.12 MEQ/2 ML-1 GM VIAL) IVPB ONE (16:50)
[2022-03-27] MEDS ORDERED: ACETAMINOPHEN 500 MG TABLET (FP) PO PRN ×2 (23:30)
[2022-03-28] MEDS: CEFAZOLIN 1 GM in DEXTROSE 5%-WATER - 50 ML IVPB SCH (01:32)
[2022-03-28] MEDS: HEPARIN NA (PORCINE) 5,000 UNITS/ML 1ML VIAL SQ SCH ×3 (06:06→21:38)
[2022-03-28] MEDS: LEVOTHYROXINE NA 100 MCG TABLET (FP) PO SCH (06:06)
[2022-03-28 08:02] LABS: BASO % 0.3 % (0-2.0); EOS % 5.3 % (0-4.5); HEMATOCRIT 24.1 % (32.4-45.2); LYMPH % 17.4 % (8-40); MCH 28.1 pg (25.7-33.7); MCHC 33.1 g/dl (32.0-36.0); MEAN CELL VOLUME 84.9 fl (80-96); MEAN PLT VOLUME 8.8 fl (7.5-11.1); MONO % 13.8 % (3.8-10.2); NEUT % 63.2 % (42.8-82.8); PLATELET COUNT 225 10^3/uL (134-434); RBC 2.84 M/mm3 (3.60-5.2); RDW 15.8 % (11.6-15.6); WHITE BLOOD COUNT 7.2 K/mm3 (4.0-10.0)
[2022-03-28 08:21] LABS: CALCIUM 8.3 mg/dL (8.5-10.1)
[2022-03-28 08:22] LABS: ALBUMIN 2.2 g/dl (3.4-5.0); BLOOD UREA NITROGEN 8.6 mg/dL (7-18)
[2022-03-28 08:25] LABS: CREATININE 0.5 mg/dL (0.55-1.3); PHOSPHOROUS 2.4 mg/dL (2.5-4.9)
[2022-03-28 08:26] LABS: BILIRUBIN,TOTAL 0.5 mg/dL (0.2-1); TOT PROT 5.3 g/dl (6.4-8.2)
[2022-03-28] MEDS: DOCUSATE SODIUM 100 MG CAPSULE (FP) PO SCH (09:29)
[2022-03-28] MEDS: POLYETHYLENE GLYCOL (HEALTHYLAX) 3350 17 GM PACKET PO SCH (09:29)
[2022-03-28] MEDS: NAPH,MB-DB/K PH,MBDB POWDER PACKET PO SCH ×2 (09:29→21:38)
[2022-03-28] MEDS: PANTOPRAZOLE 40 MG TABLET PO SCH (09:30)
[2022-03-28] MEDS: LACTATED RINGERS SOLUTION 1,000 ML/1,000 ML INFUS.BAG IV SCH ×2 (09:30→17:40)
[2022-03-28] MEDS: ASPIRIN COATED 81 MG TABLET.EC PO SCH (09:31)
[2022-03-28] MEDS: LOSARTAN POTASSIUM 50 MG TABLET PO SCH ×3 (09:34→23:16)
[2022-03-28] MEDS: BUDESONIDE/FORMETEROL FUMARATE 80/4.5 mcg INHALER IH SCH ×2 (10:11→21:39)
[2022-03-29] MEDS: traMADol HCL 50 MG TABLET PO PRN ×2 (01:52→17:22)
[2022-03-29] MEDS: LACTATED RINGERS SOLUTION 1,000 ML/1,000 ML INFUS.BAG IV SCH (06:34)
[2022-03-29] MEDS: LEVOTHYROXINE NA 100 MCG TABLET (FP) PO SCH (06:35)
[2022-03-29] MEDS: HEPARIN NA (PORCINE) 5,000 UNITS/ML 1ML VIAL SQ SCH ×3 (06:35→22:41)
[2022-03-29 07:29] LABS: BASO % 0.4 % (0-2.0); EOS % 6.9 % (0-4.5); HEMATOCRIT 24.1 % (32.4-45.2); LYMPH % 19.6 % (8-40); MCH 27.9 pg (25.7-33.7); MCHC 33.1 g/dl (32.0-36.0); MEAN CELL VOLUME 84.2 fl (80-96); MEAN PLT VOLUME 8.4 fl (7.5-11.1); MONO % 12.2 % (3.8-10.2); NEUT % 60.9 % (42.8-82.8); PLATELET COUNT 234 10^3/uL (134-434); RBC 2.86 M/mm3 (3.60-5.2); RDW 15.9 % (11.6-15.6); WHITE BLOOD COUNT 6.1 K/mm3 (4.0-10.0)
[2022-03-29 07:47] LABS: CALCIUM 8.3 mg/dL (8.5-10.1)
[2022-03-29 07:48] LABS: MAGNESIUM 1.9 mg/dL (1.8-2.4)
[2022-03-29 07:49] LABS: BLOOD UREA NITROGEN 6.7 mg/dL (7-18)
[2022-03-29 07:50] LABS: ALBUMIN 2.2 g/dl (3.4-5.0); IRON SERUM 24 ug/dL (50-175); TOTAL IRON BINDING CAPACITY 188 ug/dL (250-450)
[2022-03-29 07:52] LABS: CREATININE 0.5 mg/dL (0.55-1.3)
[2022-03-29 07:53] LABS: TOT PROT 5.3 g/dl (6.4-8.2)
[2022-03-29 07:54] LABS: BILIRUBIN,TOTAL 0.4 mg/dL (0.2-1)
[2022-03-29] MEDS: ASPIRIN COATED 81 MG TABLET.EC PO SCH (09:16)
[2022-03-29] MEDS: PANTOPRAZOLE 40 MG TABLET PO SCH (09:16)
[2022-03-29] MEDS: LOSARTAN POTASSIUM 50 MG TABLET PO SCH ×2 (09:16→23:07)
[2022-03-29] MEDS: DOCUSATE SODIUM 100 MG CAPSULE (FP) PO SCH (09:16)
[2022-03-29] MEDS: NAPH,MB-DB/K PH,MBDB POWDER PACKET PO SCH ×2 (09:16→22:41)
[2022-03-29] MEDS: POLYETHYLENE GLYCOL (HEALTHYLAX) 3350 17 GM PACKET PO SCH (09:16)
[2022-03-29] MEDS: BUDESONIDE/FORMETEROL FUMARATE 80/4.5 mcg INHALER IH SCH ×2 (09:19→22:42)
[2022-03-29] MEDS ORDERED: IRON SUCROSE INJECTION 200 MG in SODIUM CHLORIDE 90 ML IVPB ONE (12:00)
[2022-03-30] MEDS: HEPARIN NA (PORCINE) 5,000 UNITS/ML 1ML VIAL SQ SCH ×3 (05:54→21:21)
[2022-03-30] MEDS: LEVOTHYROXINE NA 100 MCG TABLET (FP) PO SCH ×2 (05:59→06:00)
[2022-03-30 09:21] LABS: HEMOGLOBIN 9.1 GM/dL (10.7-15.3); MCH 27.6 pg (25.7-33.7); MCHC 32.6 g/dl (32.0-36.0); MEAN CELL VOLUME 84.8 fl (80-96); MEAN PLT VOLUME 8.2 fl (7.5-11.1); PLATELET COUNT 253 10^3/uL (134-434); RDW 15.8 % (11.6-15.6); WHITE BLOOD COUNT 6.1 K/mm3 (4.0-10.0)
[2022-03-30] MEDS: DOCUSATE SODIUM 100 MG CAPSULE (FP) PO SCH (09:34)
[2022-03-30] MEDS: ASPIRIN COATED 81 MG TABLET.EC PO SCH (09:34)
[2022-03-30] MEDS: POLYETHYLENE GLYCOL (HEALTHYLAX) 3350 17 GM PACKET PO SCH (09:34)
[2022-03-30] MEDS: PANTOPRAZOLE 40 MG TABLET PO SCH (09:34)
[2022-03-30] MEDS: LOSARTAN POTASSIUM 50 MG TABLET PO SCH ×2 (09:34→21:21)
[2022-03-30] MEDS: NAPH,MB-DB/K PH,MBDB POWDER PACKET PO SCH ×2 (09:35→21:22)
[2022-03-30] MEDS: BUDESONIDE/FORMETEROL FUMARATE 80/4.5 mcg INHALER IH SCH ×2 (09:35→21:23)
[2022-03-30 09:58] LABS: ALBUMIN 2.5 g/dl (3.4-5.0); BLOOD UREA NITROGEN 5.9 mg/dL (7-18); CALCIUM 8.9 mg/dL (8.5-10.1); MAGNESIUM 1.9 mg/dL (1.8-2.4)
[2022-03-30 10:00] LABS: TOT PROT 6.1 g/dl (6.4-8.2)
[2022-03-30 10:01] LABS: CREATININE 0.5 mg/dL (0.55-1.3)
[2022-03-30 10:06] LABS: BILIRUBIN,TOTAL 0.4 mg/dL (0.2-1)
[2022-03-30 10:13] LABS: ANISOCYTOSIS 0; HELMET CELLS 0; HOWELL-JOLLY BODIES 0; MACROCYTOSIS 0; OVALOCYTE 0; ROULEAU 0; SICKELED CELLS 0; TARGET CELLS 0; TEAR DROP CELLS 0; TOXIC GRANULATION 0
[2022-03-30] MEDS ORDERED: IRON SUCROSE INJECTION 200 MG in SODIUM CHLORIDE 90 ML IVPB ONE (12:00)
[2022-03-30] MEDS: traMADol HCL 50 MG TABLET PO PRN (14:25)
[2022-03-30 15:44] LABS: EPI CELLS 13 /uL (0-25.1); HYALINE CASTS 1 /uL (0-3.1); URINE APPEARANCE TURBID; URINE BACTERIA >9,000 /uL (0-1359); URINE BILIRUBIN NEGATIVE (NEGATIVE); URINE COLOR YELLOW; URINE GLUCOSE (UA) NEGATIVE (NEGATIVE); URINE KETONE NEGATIVE (NEGATIVE); URINE LEUK ESTERASE 3+ (NEGATIVE); URINE NITRITE NEGATIVE (NEGATIVE); URINE PROTEIN 1+ (NEGATIVE); URINE RBC 114 /uL (0-23.9); URINE WBC 8931 /uL (0-25.8)
[2022-03-31] MEDS: traMADol HCL 50 MG TABLET PO PRN ×2 (00:46→09:41)
[2022-03-31] MEDS: HEPARIN NA (PORCINE) 5,000 UNITS/ML 1ML VIAL SQ SCH ×3 (05:56→23:05)
[2022-03-31] MEDS: LEVOTHYROXINE NA 100 MCG TABLET (FP) PO SCH (06:00)
[2022-03-31] MEDS: POLYETHYLENE GLYCOL (HEALTHYLAX) 3350 17 GM PACKET PO SCH (09:36)
[2022-03-31] MEDS: DOCUSATE SODIUM 100 MG CAPSULE (FP) PO SCH (09:36)
[2022-03-31] MEDS: NAPH,MB-DB/K PH,MBDB POWDER PACKET PO SCH ×2 (09:36→23:05)
[2022-03-31] MEDS: ASPIRIN COATED 81 MG TABLET.EC PO SCH (09:36)
[2022-03-31] MEDS: PANTOPRAZOLE 40 MG TABLET PO SCH (09:36)
[2022-03-31] MEDS: LOSARTAN POTASSIUM 50 MG TABLET PO SCH ×2 (09:36→23:06)
[2022-03-31] MEDS: BUDESONIDE/FORMETEROL FUMARATE 80/4.5 mcg INHALER IH SCH ×2 (12:08→23:07)
[2022-03-31] MEDS: NITROFURANTOIN MACROCRYSTAL 50 MG CAPSULE (FP) PO SCH ×3 (12:15→23:07)
[2022-04-01] MEDS: LEVOTHYROXINE NA 100 MCG TABLET (FP) PO SCH (06:07)
[2022-04-01] MEDS: HEPARIN NA (PORCINE) 5,000 UNITS/ML 1ML VIAL SQ SCH ×2 (06:07→14:33)
[2022-04-01] MEDS: NITROFURANTOIN MACROCRYSTAL 50 MG CAPSULE (FP) PO SCH ×3 (06:07→17:52)
[2022-04-01 07:17] VITALS: RESP 18
[2022-04-01] MEDS: DOCUSATE SODIUM 100 MG CAPSULE (FP) PO SCH (09:00)
[2022-04-01] MEDS: ASPIRIN COATED 81 MG TABLET.EC PO SCH (09:00)
[2022-04-01] MEDS: LOSARTAN POTASSIUM 50 MG TABLET PO SCH (09:00)
[2022-04-01] MEDS: BUDESONIDE/FORMETEROL FUMARATE 80/4.5 mcg INHALER IH SCH (09:01)
[2022-04-01] MEDS: POLYETHYLENE GLYCOL (HEALTHYLAX) 3350 17 GM PACKET PO SCH (09:01)
[2022-04-01] MEDS: NAPH,MB-DB/K PH,MBDB POWDER PACKET PO SCH (09:01)
[2022-04-01] MEDS: PANTOPRAZOLE 40 MG TABLET PO SCH (10:10)
[2022-04-01] MEDS: traMADol HCL 50 MG TABLET PO PRN ×2 (11:46→17:51)
[2022-04-01 13:31] LABS: HEMATOCRIT 29.6 % (32.4-45.2); HEMOGLOBIN 9.6 GM/dL (10.7-15.3); MCH 27.6 pg (25.7-33.7); MCHC 32.4 g/dl (32.0-36.0); MEAN CELL VOLUME 85.2 fl (80-96); MEAN PLT VOLUME 8.3 fl (7.5-11.1); PLATELET COUNT 278 10^3/uL (134-434); RBC 3.47 M/mm3 (3.60-5.2); RDW 16.1 % (11.6-15.6); WHITE BLOOD COUNT 7.7 K/mm3 (4.0-10.0)
[2022-04-01 14:01] VITALS: BP 118/53; PULSE 93; TEMP 98.7
== END 2022-04-01 17:40 | DRG 253 ==
LOC: JER 10:39 → JERBED 16:03 → J8W 21:31 → JICU 03-25 23:47 → J7W 03-26 18:58
PROVIDERS: ADMIT Internal Medicine; ATTEND Internal Medicine
PROC: B41DZZZ Fluoroscopy of Aorta and Bilateral Lower Extremity Arteries (ICD-10-PCS; 2022-03-25)
PROC: 041 Lower Arteries, Bypass (ICD-10-PCS; principal; 2022-03-25 13:00)
DX: I77.1 Stricture of artery (principal); N39.0 Urinary tract infection, site not specified; I73.9 Peripheral vascular disease, unspecified; I10 Essential (primary) hypertension; E78.5 Hyperlipidemia, unspecified; J44.9 Chronic obstructive pulmonary disease, unspecified; E03.9 Hypothyroidism, unspecified; D50.9 Iron deficiency anemia, unspecified; D50.0 Iron deficiency anemia secondary to blood loss (chronic); L89.621 Pressure ulcer of left heel, stage 1
CPT/HCPCS: 36415; 75635-TC; 76000-TC-FY; 80053; 80061; 81003; 82550; 83540; 83550; 83735; 84100; 84439; 84443; 85025; 85027; 85610; 85730; 86850; 86900; 86901; 86922; 87086; 87186; 93005; 93010; 93970-TC; 94760; 97116-GP; 97162-GP; 99285-25; C9803-CS; J1644; J1756; Q9967; U0003; U0005

== ENCOUNTER → 2023-02-01 | Day surgery (SDC) | payer OTHER | END | disposition home or self-care (01) | LOC: JRADIR 08:55 | PROVIDERS: ATTEND Internal Medicine Endocrinology, Diabetes & Metabolism | PROC: 0G9K3ZX Drainage of Thyroid Gland, Percutaneous Approach, Diagnostic (ICD-10-PCS; principal; 2023-02-01) | DX: E04.1 Nontoxic single thyroid nodule (principal) | CPT/HCPCS: 10005; 76942; 88173; 88305-TC ==

== ENCOUNTER 2023-09-10 18:03 | Inpatient (IN) | payer OTHER ==
[2023-09-10 20:24] LABS: BASO % 0.3 % (0-2.0); EOS % 0.1 % (0-4.5); HEMATOCRIT 32.9 % (32.4-45.2); HEMOGLOBIN 10.6 GM/dL (10.7-15.3); LYMPH % 8.8 % (8-40); MCH 27.8 pg (25.7-33.7); MCHC 32.2 g/dl (32.0-36.0); MEAN CELL VOLUME 86.2 fl (80-96); MEAN PLT VOLUME 9.4 fl (7.5-11.1); MONO % 7.3 % (3.8-10.2); NEUT % 83.5 % (42.8-82.8); PLATELET COUNT 259 10^3/uL (134-434); RBC 3.82 M/mm3 (3.60-5.2); RDW 14.7 % (11.6-15.6); WHITE BLOOD COUNT 13.5 K/mm3 (4.0-10.0)
[2023-09-10 20:31] LABS: INR 1.04 (0.83-1.09); PROTHROMBIN TIME (PATIENT) 12.1 SEC (9.7-13.0)
[2023-09-10 20:42] LABS: POTASSIUM 4.4 mmol/L (3.5-5.1)
[2023-09-10 20:44] LABS: CALCIUM 9.3 mg/dL (8.5-10.1)
[2023-09-10 20:45] LABS: BLOOD UREA NITROGEN 27.2 mg/dL (7-18)
[2023-09-10 20:48] LABS: CREATININE 0.9 mg/dL (0.55-1.3)
[2023-09-10 20:50] LABS: BILIRUBIN,TOTAL 0.4 mg/dL (0.2-1); TOT PROT 6.3 g/dl (6.4-8.2)
[2023-09-10] MEDS ORDERED: ACETAMINOPHEN INJECTION 100 ML IVPB ONE (21:46)
[2023-09-10] MEDS: ACETAMINOPHEN 1000 MG/100 ML BAG IVPB PRN (21:52)
[2023-09-10] MEDS: LACTATED RINGERS SOLUTION 1,000 ML/1,000 ML INFUS.BAG IV STA (22:23)
[2023-09-10] MEDS ORDERED: ATORVASTATIN CA 20 MG TABLET (FP) ONE (22:49)
[2023-09-10] MEDS ORDERED: HEPARIN NA (PORCINE) 5,000 UNITS/ML 1ML VIAL ONE (22:49)
[2023-09-10] MEDS: LACTATED RINGERS SOLUTION 1,000 ML/1,000 ML INFUS.BAG IV SCH (22:49)
[2023-09-10] MEDS: BUDESONIDE/FORMETEROL FUMARATE 80/4.5 mcg INHALER IH SCH (22:55)
[2023-09-10] MEDS: ATORVASTATIN CA 20 MG TABLET (FP) PO SCH (22:55)
[2023-09-10] MEDS: HEPARIN NA (PORCINE) 5,000 UNITS/ML 1ML VIAL SQ SCH (23:10)
[2023-09-11] MEDS: LEVOTHYROXINE NA 112 MCG TABLET (FP) PO SCH (06:55)
[2023-09-11 09:10] LABS: BASO % 0.3 % (0-2.0); EOS % 3.3 % (0-4.5); HEMATOCRIT 29.2 % (32.4-45.2); HEMOGLOBIN 9.6 GM/dL (10.7-15.3); LYMPH % 14.7 % (8-40); MCHC 32.9 g/dl (32.0-36.0); MEAN PLT VOLUME 9.7 fl (7.5-11.1); MONO % 10.2 % (3.8-10.2); NEUT % 71.5 % (42.8-82.8); PLATELET COUNT 230 10^3/uL (134-434); RBC 3.44 M/mm3 (3.60-5.2); RDW 15.1 % (11.6-15.6); WHITE BLOOD COUNT 10.5 K/mm3 (4.0-10.0)
[2023-09-11 09:29] LABS: POTASSIUM 3.6 mmol/L (3.5-5.1)
[2023-09-11 09:41] LABS: ALBUMIN 2.8 g/dl (3.4-5.0); BLOOD UREA NITROGEN 24.5 mg/dL (7-18); CALCIUM 8.7 mg/dL (8.5-10.1)
[2023-09-11 09:42] LABS: MAGNESIUM 1.9 mg/dL (1.8-2.4)
[2023-09-11] MEDS ORDERED: HEPARIN NA (PORCINE) 5,000 UNITS/ML 1ML VIAL IVPUSH PRN (09:42)
[2023-09-11 09:44] LABS: PHOSPHOROUS 3.2 mg/dL (2.5-4.9)
[2023-09-11 09:45] LABS: CREATININE 0.9 mg/dL (0.55-1.3)
[2023-09-11 09:46] LABS: TOT PROT 5.8 g/dl (6.4-8.2)
[2023-09-11 09:47] LABS: BILIRUBIN,TOTAL 0.4 mg/dL (0.2-1)
[2023-09-11] MEDS: LOSARTAN POTASSIUM 50 MG TABLET PO SCH (09:58)
[2023-09-11] MEDS: morphine CARPU-JECT 8 MG/1 ML DISP.SYRIN IVPUSH SCH (10:00)
[2023-09-11] MEDS: HEPARIN INFUSION - 25,000 UNITS/500 ML INFUS.BAG IVPB SCH (11:20)
[2023-09-11] MEDS: HEPARIN NA (PORCINE) 5,000 UNITS/ML 1ML VIAL IVPUSH PRN (15:00)
[2023-09-11 22:38] LABS: BASO % 0.3 % (0-2.0); EOS % 3.6 % (0-4.5); HEMATOCRIT 27.3 % (32.4-45.2); HEMOGLOBIN 8.9 GM/dL (10.7-15.3); LYMPH % 16.6 % (8-40); MCH 27.4 pg (25.7-33.7); MCHC 32.5 g/dl (32.0-36.0); MEAN CELL VOLUME 84.3 fl (80-96); MEAN PLT VOLUME 9.4 fl (7.5-11.1); MONO % 14.1 % (3.8-10.2); NEUT % 65.4 % (42.8-82.8); PLATELET COUNT 215 10^3/uL (134-434); RBC 3.24 M/mm3 (3.60-5.2); RDW 14.6 % (11.6-15.6); WHITE BLOOD COUNT 11.3 K/mm3 (4.0-10.0)
[2023-09-12 09:17] LABS: HEMOGLOBIN 9.2 GM/dL (10.7-15.3); MCH 28.3 pg (25.7-33.7); MEAN CELL VOLUME 85.7 fl (80-96); PLATELET COUNT 213 10^3/uL (134-434); RBC 3.26 M/mm3 (3.60-5.2); RDW 14.8 % (11.6-15.6)
[2023-09-12 09:39] LABS: CHOLESTEROL 115 mg/dL (50-200)
[2023-09-12 09:40] LABS: LDL CHOLESTEROL (ONLY SJRH) 58 mg/dL (5-100)
[2023-09-12 09:42] LABS: HDL CHOLESTEROL 55 mg/dL (40-60)
[2023-09-12] MEDS: ONDANSETRON 4 MG/2 ML VIAL IVPUSH ONE (14:52)
[2023-09-13] MEDS: traMADol HCL 50 MG TABLET PO ONE (00:07)
[2023-09-13 08:33] LABS: BASO % 0.4 % (0-2.0); EOS % 4.5 % (0-4.5); HEMATOCRIT 28.1 % (32.4-45.2); HEMOGLOBIN 9.3 GM/dL (10.7-15.3); LYMPH % 17.7 % (8-40); MCH 28.4 pg (25.7-33.7); MEAN CELL VOLUME 86.1 fl (80-96); MEAN PLT VOLUME 10.2 fl (7.5-11.1); MONO % 15.5 % (3.8-10.2); NEUT % 61.9 % (42.8-82.8); PLATELET COUNT 223 10^3/uL (134-434); RBC 3.26 M/mm3 (3.60-5.2); RDW 14.7 % (11.6-15.6); WHITE BLOOD COUNT 9.6 K/mm3 (4.0-10.0)
[2023-09-13 08:47] LABS: INR 1.08 (0.83-1.09); PROTHROMBIN TIME (PATIENT) 12.5 SEC (9.7-13.0)
[2023-09-13 09:05] LABS: POTASSIUM 4.1 mmol/L (3.5-5.1)
[2023-09-13 09:07] LABS: BLOOD UREA NITROGEN 16.8 mg/dL (7-18); CALCIUM 8.7 mg/dL (8.5-10.1)
[2023-09-13 09:08] LABS: ALBUMIN 2.7 g/dl (3.4-5.0); MAGNESIUM 1.8 mg/dL (1.8-2.4)
[2023-09-13 09:11] LABS: CREATININE 0.7 mg/dL (0.55-1.3)
[2023-09-13 09:12] LABS: BILIRUBIN,TOTAL 0.4 mg/dL (0.2-1)
[2023-09-13 09:13] LABS: TOT PROT 6.2 g/dl (6.4-8.2)
[2023-09-13] MEDS ORDERED: ONDANSETRON 4 MG/2 ML VIAL IVPUSH PRN (16:59)
[2023-09-14] MEDS: traMADol HCL 50 MG TABLET PO PRN ×2 (01:24→19:06)
[2023-09-14 10:27] LABS: HEMATOCRIT 29.5 % (32.4-45.2); HEMOGLOBIN 9.5 GM/dL (10.7-15.3); MCH 27.5 pg (25.7-33.7); MCHC 32.2 g/dl (32.0-36.0); MEAN CELL VOLUME 85.2 fl (80-96); MEAN PLT VOLUME 10.3 fl (7.5-11.1); PLATELET COUNT 275 10^3/uL (134-434); RBC 3.47 M/mm3 (3.60-5.2); WHITE BLOOD COUNT 9.3 K/mm3 (4.0-10.0)
[2023-09-14 11:01] LABS: POTASSIUM 4.2 mmol/L (3.5-5.1)
[2023-09-14 11:07] LABS: CREATININE 0.7 mg/dL (0.55-1.3)
[2023-09-14 11:09] LABS: BILIRUBIN,TOTAL 0.5 mg/dL (0.2-1); TOT PROT 6.3 g/dl (6.4-8.2)
[2023-09-14 11:17] LABS: ALBUMIN 2.6 g/dl (3.4-5.0); BLOOD UREA NITROGEN 21.9 mg/dL (7-18); CALCIUM 8.5 mg/dL (8.5-10.1); MAGNESIUM 2.2 mg/dL (1.8-2.4)
[2023-09-14] MEDS: PANTOPRAZOLE SODIUM 40 MG VIAL IVPUSH SCH (11:22)
[2023-09-14] MEDS ORDERED: HEPARIN NA (PORCINE) 5,000 UNITS/ML 1ML VIAL ONE ×2 (11:32→13:33)
[2023-09-14] MEDS ORDERED: PROPOFOL 20 ML ONE ×2 (12:02→13:46)
[2023-09-14] MEDS ORDERED: MIDAZOLAM HCL 2 MG/2 ML SINGLE DOSE VIAL ONE (12:02)
[2023-09-14] MEDS ORDERED: ROCURONIUM BROMIDE 50 MG/5 ML SYRINGE ONE (12:05)
[2023-09-14] MEDS ORDERED: POVIDONE-IODINE OINTMENT 10% - 28.4 GM TUBE ONE (12:12)
[2023-09-14] MEDS: IOVERSOL 320 MG/ML ML IV ONE (12:57)
[2023-09-14] MEDS: HEPARIN NA (PORCINE) 5,000 UNITS/ML 1ML VIAL SQ ONE ×2 (12:57)
[2023-09-14] MEDS: ceFAZolin SODIUM 1 GM VIAL IVPB ONE (13:08)
[2023-09-14] MEDS ORDERED: NEOSTIGMINE METHYLSULFATE 0.5 MG/1 ML - 10 ML MDV ONE (14:45)
[2023-09-14] MEDS ORDERED: HEPARIN NA (PORCINE) 5,000 UNITS/ML 1ML VIAL IVPUSH PRN (15:50)
[2023-09-14] MEDS ORDERED: HEPARIN INFUSION - 25,000 UNITS/500 ML INFUS.BAG IVPB ONE (16:00)
[2023-09-14] MEDS: HEPARIN INFUSION - 25,000 UNITS/500 ML INFUS.BAG IVPB SCH (17:15)
[2023-09-14] MEDS: LACTATED RINGERS SOLUTION 1,000 ML/1,000 ML INFUS.BAG IV SCH (17:15)
[2023-09-14] MEDS: CHLORHEXIDINE GLUCONATE 4% CLEANSER FOR DECOLONIZATION TP SCH (21:22)
[2023-09-14] MEDS: MUPIROCIN 2% TOPICAL OINTMENT FOR DECOLONIZATION NS SCH (21:22)
[2023-09-14] MEDS: ATORVASTATIN CA 20 MG TABLET (FP) PO SCH (21:25)
[2023-09-14] MEDS: BUDESONIDE/FORMETEROL FUMARATE 80/4.5 mcg INHALER IH SCH (21:27)
[2023-09-14] MEDS: HEPARIN NA (PORCINE) 5,000 UNITS/ML 1ML VIAL IVPUSH PRN (22:56)
[2023-09-15] MEDS: LEVOTHYROXINE NA 112 MCG TABLET (FP) PO SCH (06:27)
[2023-09-15 07:39] LABS: HEMATOCRIT 26.3 % (32.4-45.2); HEMOGLOBIN 8.6 GM/dL (10.7-15.3); MCH 28.1 pg (25.7-33.7); MCHC 32.7 g/dl (32.0-36.0); MEAN CELL VOLUME 85.9 fl (80-96); MEAN PLT VOLUME 10.2 fl (7.5-11.1); PLATELET COUNT 252 10^3/uL (134-434); POTASSIUM 4.1 mmol/L (3.5-5.1); RBC 3.06 M/mm3 (3.60-5.2); RDW 14.1 % (11.6-15.6); WHITE BLOOD COUNT 11.9 K/mm3 (4.0-10.0)
[2023-09-15 07:42] LABS: ALBUMIN 2.4 g/dl (3.4-5.0); CALCIUM 8.4 mg/dL (8.5-10.1)
[2023-09-15 07:43] LABS: BLOOD UREA NITROGEN 16.5 mg/dL (7-18)
[2023-09-15 07:45] LABS: CREATININE 0.6 mg/dL (0.55-1.3)
[2023-09-15 07:46] LABS: TOT PROT 5.8 g/dl (6.4-8.2)
[2023-09-15 07:47] LABS: BILIRUBIN,TOTAL 0.4 mg/dL (0.2-1)
[2023-09-15] MEDS: PANTOPRAZOLE SODIUM 40 MG VIAL IVPUSH SCH (10:28)
[2023-09-15] MEDS: LOSARTAN POTASSIUM 50 MG TABLET PO SCH (10:28)
[2023-09-15] MEDS: ONDANSETRON 4 MG/2 ML VIAL IVPUSH PRN (10:30)
[2023-09-15] MEDS ORDERED: HEPARIN NA (PORCINE) 5,000 UNITS/ML 1ML VIAL IVPUSH PRN (18:20)
[2023-09-15] MEDS: HEPARIN - 25,000 UNIT in SODIUM CHLORIDE 495 ML IV SCH (18:43)
[2023-09-15] MEDS ORDERED: MUPIROCIN 2% TOPICAL OINTMENT FOR DECOLONIZATION NS SCH (22:00)
[2023-09-15] MEDS ORDERED: APIXABAN 5 MG TABLET PO SCH (22:00)
[2023-09-15] MEDS ORDERED: CHLORHEXIDINE GLUCONATE 4% CLEANSER FOR DECOLONIZATION TP SCH (22:00)
[2023-09-15] MEDS: ATORVASTATIN CA 20 MG TABLET (FP) PO SCH (22:41)
[2023-09-15] MEDS: LACTATED RINGERS SOLUTION 1,000 ML/1,000 ML INFUS.BAG IV SCH (22:43)
[2023-09-15] MEDS: BUDESONIDE/FORMETEROL FUMARATE 80/4.5 mcg INHALER IH SCH (22:44)
[2023-09-16] MEDS: LEVOTHYROXINE NA 112 MCG TABLET (FP) PO SCH (06:07)
[2023-09-16] MEDS: traMADol HCL 50 MG TABLET PO PRN (06:07)
[2023-09-16] MEDS: LOSARTAN POTASSIUM 50 MG TABLET PO SCH (10:17)
[2023-09-16 11:34] LABS: BASO % 0.5 % (0-2.0); EOS % 3.7 % (0-4.5); HEMATOCRIT 26.7 % (32.4-45.2); HEMOGLOBIN 8.8 GM/dL (10.7-15.3); LYMPH % 19.5 % (8-40); MCHC 32.9 g/dl (32.0-36.0); MEAN CELL VOLUME 85.2 fl (80-96); MEAN PLT VOLUME 10.2 fl (7.5-11.1); MONO % 15.9 % (3.8-10.2); NEUT % 60.4 % (42.8-82.8); PLATELET COUNT 268 10^3/uL (134-434); RBC 3.13 M/mm3 (3.60-5.2); RDW 14.8 % (11.6-15.6); WHITE BLOOD COUNT 10.4 K/mm3 (4.0-10.0)
[2023-09-16 12:22] LABS: ALBUMIN 2.3 g/dl (3.4-5.0)
[2023-09-16 12:23] LABS: BLOOD UREA NITROGEN 14.4 mg/dL (7-18); CALCIUM 8.7 mg/dL (8.5-10.1); MAGNESIUM 1.8 mg/dL (1.8-2.4)
[2023-09-16 12:25] LABS: CREATININE 0.7 mg/dL (0.55-1.3); PHOSPHOROUS 2.8 mg/dL (2.5-4.9)
[2023-09-16 12:26] LABS: BILIRUBIN,TOTAL 0.4 mg/dL (0.2-1); TOT PROT 5.8 g/dl (6.4-8.2)
[2023-09-16] MEDS ORDERED: SODIUM CHLORIDE 500 ML IV STA (16:29)
[2023-09-16] MEDS: HEPARIN NA (PORCINE) 5,000 UNITS/ML 1ML VIAL IVPUSH PRN (17:57)
[2023-09-16] MEDS: ONDANSETRON 4 MG/2 ML VIAL IVPUSH PRN (21:54)
[2023-09-17 09:11] LABS: BASO % 0.6 % (0-2.0); EOS % 5.6 % (0-4.5); HEMATOCRIT 27.2 % (32.4-45.2); LYMPH % 18.7 % (8-40); MCH 28.4 pg (25.7-33.7); MEAN CELL VOLUME 86.2 fl (80-96); MEAN PLT VOLUME 10.3 fl (7.5-11.1); MONO % 12.7 % (3.8-10.2); NEUT % 62.4 % (42.8-82.8); PLATELET COUNT 278 10^3/uL (134-434); RBC 3.15 M/mm3 (3.60-5.2); RDW 14.4 % (11.6-15.6); WHITE BLOOD COUNT 8.6 K/mm3 (4.0-10.0)
[2023-09-17 09:15] LABS: HEMATOCRIT 27.5 % (32.4-45.2); MCH 28.3 pg (25.7-33.7); MCHC 32.9 g/dl (32.0-36.0); MEAN CELL VOLUME 85.9 fl (80-96); PLATELET COUNT 296 10^3/uL (134-434); RDW 14.5 % (11.6-15.6)
[2023-09-17 09:20] LABS: POTASSIUM 4.6 mmol/L (3.5-5.1)
[2023-09-17 09:30] LABS: CALCIUM 9.4 mg/dL (8.5-10.1)
[2023-09-17 09:31] LABS: ALBUMIN 2.3 g/dl (3.4-5.0); BLOOD UREA NITROGEN 11.9 mg/dL (7-18); MAGNESIUM 1.8 mg/dL (1.8-2.4)
[2023-09-17 09:33] LABS: PHOSPHOROUS 3.3 mg/dL (2.5-4.9)
[2023-09-17 09:34] LABS: BILIRUBIN,TOTAL 0.5 mg/dL (0.2-1); CREATININE 0.6 mg/dL (0.55-1.3)
[2023-09-17] MEDS: SODIUM CHLORIDE 500 ML IV STA (14:38)
[2023-09-18] MEDS: ACETAMINOPHEN 1000 MG/100 ML BAG IVPB PRN (00:57)
[2023-09-18] MEDS ORDERED: HEPARIN NA (PORCINE) 5,000 UNITS/ML 1ML VIAL ONE (10:25)
[2023-09-18] MEDS ORDERED: LIDOCAINE HCL 1%, 10 MG/ML (20ML VIAL) ONE ×2 (10:25→12:05)
[2023-09-18 10:31] LABS: HEMATOCRIT 26.5 % (32.4-45.2); HEMOGLOBIN 8.7 GM/dL (10.7-15.3); MCH 28.2 pg (25.7-33.7); MCHC 32.8 g/dl (32.0-36.0); MEAN PLT VOLUME 9.7 fl (7.5-11.1); PLATELET COUNT 320 10^3/uL (134-434); RBC 3.08 M/mm3 (3.60-5.2); RDW 14.3 % (11.6-15.6); WHITE BLOOD COUNT 9.1 K/mm3 (4.0-10.0)
[2023-09-18 10:54] LABS: POTASSIUM 4.7 mmol/L (3.5-5.1)
[2023-09-18 10:58] LABS: CALCIUM 9.4 mg/dL (8.5-10.1)
[2023-09-18 11:01] LABS: CREATININE 0.6 mg/dL (0.55-1.3)
[2023-09-18] MEDS ORDERED: MIDAZOLAM HCL 2 MG/2 ML SINGLE DOSE VIAL ONE (11:17)
[2023-09-18] MEDS ORDERED: PROPOFOL 20 ML ONE ×2 (11:17→13:11)
[2023-09-18] MEDS ORDERED: ceFAZolin SODIUM 1 GM VIAL ONE (11:34)
[2023-09-18] MEDS: ceFAZolin SODIUM 1 GM VIAL IVPB ONE (11:35)
[2023-09-18] MEDS: LIDOCAINE HCL 1%, 10 MG/ML (20ML VIAL) NR ONE ×3 (11:44→13:20)
[2023-09-18] MEDS ORDERED: BUPIVACAINE HCL/PF 0.5% (5MG/ML) 10 ML VIAL ONE (12:06)
[2023-09-18] MEDS: BUPIVACAINE HCL/PF 0.5% (5MG/ML) 10 ML VIAL IJ ONE (13:20)
[2023-09-18 14:33] LABS: BASO % 0.3 % (0-2.0); EOS % 4.6 % (0-4.5); HEMATOCRIT 26.7 % (32.4-45.2); HEMOGLOBIN 8.8 GM/dL (10.7-15.3); LYMPH % 24.2 % (8-40); MCH 28.4 pg (25.7-33.7); MEAN CELL VOLUME 86.1 fl (80-96); MONO % 11.4 % (3.8-10.2); NEUT % 59.5 % (42.8-82.8); PLATELET COUNT 315 10^3/uL (134-434); WHITE BLOOD COUNT 9.2 K/mm3 (4.0-10.0)
[2023-09-18] MEDS ORDERED: HEPARIN NA (PORCINE) 5,000 UNITS/ML 1ML VIAL IVPUSH PRN ×2 (14:36)
[2023-09-18] MEDS ORDERED: ACETAMINOPHEN 1000 MG/100 ML BAG IVPB PRN (14:36)
[2023-09-18 14:38] LABS: INR 1.15 (0.83-1.09); PROTHROMBIN TIME (PATIENT) 13.3 SEC (9.7-13.0)
[2023-09-18 15:00] LABS: ACTIVATED PTT 185.4 SECONDS (25.2-36.5)
[2023-09-18] MEDS: SODIUM CHLORIDE 1,000 ML IV SCH (15:00)
[2023-09-18] MEDS: HEPARIN - 25,000 UNIT in SODIUM CHLORIDE 495 ML IV SCH (15:24)
[2023-09-18] MEDS: traMADol HCL 50 MG TABLET PO PRN (16:21)
[2023-09-18] MEDS: CLOPIDOGREL BISULFATE 75 MG TABLET (FP) PO ONE (17:08)
[2023-09-18] MEDS: PANTOPRAZOLE 40 MG TABLET PO SCH (17:08)
[2023-09-18] MEDS: CEFAZOLIN SODIUM 2 GM in DEXTROSE 5%-WATER 100 ML IVPB SCH (18:33)
[2023-09-18] MEDS: MUPIROCIN 2% TOPICAL OINTMENT FOR DECOLONIZATION NS SCH (22:06)
[2023-09-18] MEDS: BUDESONIDE/FORMETEROL FUMARATE 80/4.5 mcg INHALER IH SCH (22:06)
[2023-09-18] MEDS: ATORVASTATIN CA 20 MG TABLET (FP) PO SCH (22:06)
[2023-09-18] MEDS: CHLORHEXIDINE GLUCONATE 4% CLEANSER FOR DECOLONIZATION TP SCH (22:06)
[2023-09-18] MEDS: HEPARIN NA (PORCINE) 5,000 UNITS/ML 1ML VIAL IVPUSH PRN (22:44)
[2023-09-19 01:19] LABS: HEMOGLOBIN 9.8 GM/dL (10.7-15.3); MCH 28.9 pg (25.7-33.7); MCHC 33.8 g/dl (32.0-36.0); MEAN CELL VOLUME 85.3 fl (80-96); PLATELET COUNT 293 10^3/uL (134-434); RBC 3.41 M/mm3 (3.60-5.2); RDW 14.9 % (11.6-15.6); WHITE BLOOD COUNT 10.9 K/mm3 (4.0-10.0)
[2023-09-19] MEDS: LEVOTHYROXINE NA 112 MCG TABLET (FP) PO SCH (06:26)
[2023-09-19 07:22] LABS: INR 1.15 (0.83-1.09); PROTHROMBIN TIME (PATIENT) 13.3 SEC (9.7-13.0)
[2023-09-19 07:25] LABS: ACTIVATED PTT 37.8 SECONDS (25.2-36.5)
[2023-09-19 07:40] LABS: ALBUMIN 2.2 g/dl (3.4-5.0); BLOOD UREA NITROGEN 10.5 mg/dL (7-18); CALCIUM 8.3 mg/dL (8.5-10.1); MAGNESIUM 1.6 mg/dL (1.8-2.4)
[2023-09-19 07:43] LABS: CREATININE 0.7 mg/dL (0.55-1.3); PHOSPHOROUS 2.9 mg/dL (2.5-4.9)
[2023-09-19 07:45] LABS: BILIRUBIN,TOTAL 0.6 mg/dL (0.2-1); TOT PROT 5.5 g/dl (6.4-8.2)
[2023-09-19] MEDS: HEPARIN NA (PORCINE) 5,000 UNITS/ML 1ML VIAL IVPUSH PRN (07:45)
[2023-09-19 08:10] LABS: BASO % 0.3 % (0-2.0); EOS % 2.1 % (0-4.5); HEMATOCRIT 28.3 % (32.4-45.2); HEMOGLOBIN 9.2 GM/dL (10.7-15.3); LYMPH % 13.7 % (8-40); MCH 27.8 pg (25.7-33.7); MCHC 32.5 g/dl (32.0-36.0); MEAN CELL VOLUME 85.7 fl (80-96); MEAN PLT VOLUME 9.2 fl (7.5-11.1); MONO % 13.4 % (3.8-10.2); NEUT % 70.5 % (42.8-82.8); PLATELET COUNT 298 10^3/uL (134-434); RDW 14.6 % (11.6-15.6); WHITE BLOOD COUNT 11.8 K/mm3 (4.0-10.0)
[2023-09-19] MEDS: CLOPIDOGREL BISULFATE 75 MG TABLET (FP) PO SCH (09:16)
[2023-09-19] MEDS: MAGNESIUM 1GM/D5W - 1 GM/100 ML IVPB IVPB ONE (09:16)
[2023-09-19] MEDS: ASPIRIN COATED 81 MG TABLET.EC PO SCH (09:16)
[2023-09-19] MEDS: SENNOSIDES 8.6MG TABLET (FP) PO PRN (21:18)
[2023-09-19] MEDS: POLYETHYLENE GLYCOL (HEALTHYLAX) 3350 17 GM PACKET PO SCH (21:18)
[2023-09-20] MEDS: ONDANSETRON 4 MG/2 ML VIAL IVPUSH PRN (03:20)
[2023-09-20] MEDS: guaiFENesin 200 MG/10 ML 10 ML UNIT-DOSE CUPS PO PRN (03:21)
[2023-09-20 07:48] LABS: HEMATOCRIT 25.5 % (32.4-45.2); HEMOGLOBIN 8.4 GM/dL (10.7-15.3); MCH 28.4 pg (25.7-33.7); MCHC 33.1 g/dl (32.0-36.0); MEAN CELL VOLUME 85.8 fl (80-96); MEAN PLT VOLUME 9.6 fl (7.5-11.1); PLATELET COUNT 292 10^3/uL (134-434); RBC 2.97 M/mm3 (3.60-5.2); RDW 14.3 % (11.6-15.6); WHITE BLOOD COUNT 9.3 K/mm3 (4.0-10.0)
[2023-09-20 07:59] LABS: ALBUMIN 2.1 g/dl (3.4-5.0); BILIRUBIN,TOTAL 0.8 mg/dL (0.2-1); BLOOD UREA NITROGEN 10.2 mg/dL (7-18); CREATININE 0.6 mg/dL (0.55-1.3); MAGNESIUM 1.8 mg/dL (1.8-2.4); PHOSPHOROUS 2.6 mg/dL (2.5-4.9); POTASSIUM 3.8 mmol/L (3.5-5.1); TOT PROT 5.1 g/dl (6.4-8.2)
[2023-09-20] MEDS: APIXABAN 5 MG TABLET PO SCH (15:27)
[2023-09-20] MEDS: HEPARIN - 25,000 UNIT in SODIUM CHLORIDE 495 ML IV SCH (17:44)
[2023-09-21 06:29] LABS: HEMATOCRIT 25.9 % (32.4-45.2); HEMOGLOBIN 8.5 GM/dL (10.7-15.3); MCH 28.3 pg (25.7-33.7); MCHC 32.9 g/dl (32.0-36.0); MEAN PLT VOLUME 9.2 fl (7.5-11.1); PLATELET COUNT 298 10^3/uL (134-434); RBC 3.02 M/mm3 (3.60-5.2); RDW 14.8 % (11.6-15.6); WHITE BLOOD COUNT 9.9 K/mm3 (4.0-10.0)
[2023-09-21 07:58] LABS: ALBUMIN 2.1 g/dl (3.4-5.0); BILIRUBIN,TOTAL 0.4 mg/dL (0.2-1); BLOOD UREA NITROGEN 10.5 mg/dL (7-18); CALCIUM 8.3 mg/dL (8.5-10.1); CREATININE 0.6 mg/dL (0.55-1.3); MAGNESIUM 1.8 mg/dL (1.8-2.4); PHOSPHOROUS 2.4 mg/dL (2.5-4.9); POTASSIUM 4.1 mmol/L (3.5-5.1); TOT PROT 5.4 g/dl (6.4-8.2)
[2023-09-21] MEDS: LOSARTAN POTASSIUM 50 MG TABLET PO SCH (10:21)
[2023-09-21 12:44] VITALS: BMI 25.0
[2023-09-21] MEDS: NAPH,MB-DB/K PH,MBDB POWDER PACKET PO ONE (12:54)
[2023-09-21] MEDS: MINERAL OIL ENEMA 133 ML ENEMA RC ONE (15:44)
[2023-09-21] MEDS ORDERED: MAGNESIUM CITRATE 300 ML BOTTLE PO PRN (19:15)
[2023-09-22] MEDS ORDERED: guaiFENesin 200 MG/10 ML 10 ML UNIT-DOSE CUPS PO PRN (00:29)
[2023-09-22] MEDS ORDERED: ONDANSETRON 4 MG/2 ML VIAL IVPUSH PRN (00:29)
[2023-09-22] MEDS ORDERED: SENNOSIDES 8.6MG TABLET (FP) PO PRN (00:29)
[2023-09-22] MEDS: SODIUM CHLORIDE 1,000 ML IV SCH (01:01)
[2023-09-22] MEDS: LEVOTHYROXINE NA 112 MCG TABLET (FP) PO SCH (06:29)
[2023-09-22] MEDS: ACETAMINOPHEN 1000 MG/100 ML BAG IVPB ONE (06:29)
[2023-09-22] MEDS: traMADol HCL 50 MG TABLET PO PRN (09:09)
[2023-09-22] MEDS: CLOPIDOGREL BISULFATE 75 MG TABLET (FP) PO SCH (09:10)
[2023-09-22] MEDS: ASPIRIN COATED 81 MG TABLET.EC PO SCH (09:10)
[2023-09-22] MEDS: PANTOPRAZOLE 40 MG TABLET PO SCH (09:11)
[2023-09-22] MEDS: POLYETHYLENE GLYCOL (HEALTHYLAX) 3350 17 GM PACKET PO SCH (09:11)
[2023-09-22 10:53] LABS: HEMATOCRIT 26.2 % (32.4-45.2); HEMOGLOBIN 8.8 GM/dL (10.7-15.3); MCH 28.7 pg (25.7-33.7); MCHC 33.5 g/dl (32.0-36.0); MEAN CELL VOLUME 85.8 fl (80-96); MEAN PLT VOLUME 9.2 fl (7.5-11.1); PLATELET COUNT 334 10^3/uL (134-434); RBC 3.05 M/mm3 (3.60-5.2); RDW 15.1 % (11.6-15.6); WHITE BLOOD COUNT 10.7 K/mm3 (4.0-10.0)
[2023-09-22 10:54] LABS: POTASSIUM 4.3 mmol/L (3.5-5.1)
[2023-09-22 10:59] LABS: CALCIUM 8.2 mg/dL (8.5-10.1)
[2023-09-22 11:00] LABS: ALBUMIN 2.3 g/dl (3.4-5.0); BLOOD UREA NITROGEN 7.9 mg/dL (7-18)
[2023-09-22 11:01] LABS: MAGNESIUM 1.8 mg/dL (1.8-2.4)
[2023-09-22 11:02] LABS: PHOSPHOROUS 2.7 mg/dL (2.5-4.9)
[2023-09-22 11:03] LABS: CREATININE 0.6 mg/dL (0.55-1.3)
[2023-09-22 11:04] LABS: BILIRUBIN,TOTAL 0.6 mg/dL (0.2-1); TOT PROT 5.7 g/dl (6.4-8.2)
[2023-09-22] MEDS: BUDESONIDE/FORMETEROL FUMARATE 80/4.5 mcg INHALER IH SCH (11:12)
[2023-09-22] MEDS: morphine CARPU-JECT 2 MG/1 ML DISP.SYRIN IVPUSH ONE (11:51)
[2023-09-22] MEDS: CEFAZOLIN SODIUM 2 GM in DEXTROSE 5%-WATER 100 ML IVPB SCH (14:50)
[2023-09-22] MEDS: ATORVASTATIN CA 20 MG TABLET (FP) PO SCH (22:06)
[2023-09-23 08:59] VITALS: RESP 18
[2023-09-23 09:18] LABS: HEMATOCRIT 27.2 % (32.4-45.2); HEMOGLOBIN 8.9 GM/dL (10.7-15.3); MCH 27.9 pg (25.7-33.7); MCHC 32.6 g/dl (32.0-36.0); MEAN CELL VOLUME 85.7 fl (80-96); PLATELET COUNT 365 10^3/uL (134-434); RBC 3.18 M/mm3 (3.60-5.2); RDW 15.3 % (11.6-15.6); WHITE BLOOD COUNT 11.8 K/mm3 (4.0-10.0)
[2023-09-23 09:49] LABS: POTASSIUM 3.9 mmol/L (3.5-5.1)
[2023-09-23 10:13] LABS: ANISOCYTOSIS 0; HELMET CELLS 0; HOWELL-JOLLY BODIES 0; MACROCYTOSIS 0; OVALOCYTE 0; ROULEAU 0; SICKELED CELLS 0; TARGET CELLS 0; TEAR DROP CELLS 0; TOXIC GRANULATION 0
[2023-09-23 10:28] LABS: BLOOD UREA NITROGEN 8.4 mg/dL (7-18)
[2023-09-23 10:30] LABS: ALBUMIN 2.3 g/dl (3.4-5.0)
[2023-09-23 10:33] LABS: BILIRUBIN,TOTAL 0.5 mg/dL (0.2-1); CREATININE 0.6 mg/dL (0.55-1.3); TOT PROT 5.8 g/dl (6.4-8.2)
[2023-09-23 10:36] LABS: CALCIUM 8.6 mg/dL (8.5-10.1)
[2023-09-23] MEDS ORDERED: SENNOSIDES 8.6MG TABLET (FP) PO SCH (10:59)
[2023-09-23] MEDS ORDERED: ONDANSETRON *ODT* 4 MG TABLET SL PRN (11:08)
[2023-09-23] MEDS: BISACODYL 10 MG SUPP.RECT PR ONE (13:32)
[2023-09-23] MEDS: SENNOSIDES 8.6MG TABLET (FP) PO SCH (13:32)
[2023-09-23] MEDS ORDERED: KETOROLAC TROMETHAMINE 30 MG/1 ML VIAL IM PRN ×2 (13:47→13:51)
[2023-09-23] MEDS: ACETAMINOPHEN 325 MG TABLET (FP) PO SCH (14:28)
[2023-09-23] MEDS ORDERED: KETOROLAC TROMETHAMINE 10 MG TABLET PO PRN (17:12)
[2023-09-23] MEDS: POLYETHYLENE GLYCOL (HEALTHYLAX) 3350 17 GM PACKET PO SCH (21:12)
[2023-09-23] MEDS: ACETAMINOPHEN 1000 MG/100 ML BAG IVPB SCH (21:13)
[2023-09-23] MEDS: ATORVASTATIN CA 20 MG TABLET (FP) PO SCH (21:13)
[2023-09-23] MEDS: traMADol HCL 50 MG TABLET PO PRN (23:12)
[2023-09-24 08:47] VITALS: BP 137/71; PULSE 80; TEMP 98.3
[2023-09-24 11:01] LABS: HEMOGLOBIN 9.3 GM/dL (10.7-15.3); MCH 27.3 pg (25.7-33.7); MEAN CELL VOLUME 85.4 fl (80-96); MEAN PLT VOLUME 9.2 fl (7.5-11.1); PLATELET COUNT 420 10^3/uL (134-434); RBC 3.39 M/mm3 (3.60-5.2); RDW 15.1 % (11.6-15.6); WHITE BLOOD COUNT 12.9 K/mm3 (4.0-10.0)
[2023-09-24 11:23] LABS: POTASSIUM 4.1 mmol/L (3.5-5.1)
[2023-09-24 11:29] LABS: ALBUMIN 2.3 g/dl (3.4-5.0); BLOOD UREA NITROGEN 11.1 mg/dL (7-18); MAGNESIUM 1.9 mg/dL (1.8-2.4)
[2023-09-24 11:31] LABS: PHOSPHOROUS 2.9 mg/dL (2.5-4.9)
[2023-09-24 11:32] LABS: CREATININE 0.7 mg/dL (0.55-1.3)
[2023-09-24 11:33] LABS: BILIRUBIN,TOTAL 0.4 mg/dL (0.2-1); TOT PROT 6.2 g/dl (6.4-8.2)
[2023-09-24] MEDS ORDERED: MAGNESIUM CITRATE 300 ML BOTTLE PO SCH (14:00)
== END 2023-09-24 12:00 | DRG 253 ==
LOC: JER 18:03 → JERBED 21:17 → J6S 09-11 06:05 → J2C 09-14 14:23 → JICU 09-14 17:37 → J5S 09-15 19:49 → JICU 09-18 15:10 → J6S 09-22 02:06
PROVIDERS: ADMIT Internal Medicine; ATTEND Internal Medicine
PROC: 041 Lower Arteries, Bypass (ICD-10-PCS; principal; 2023-09-13)
PROC: 041S3JS Bypass Left Posterior Tibial Artery to Lower Extremity Vein with Synthetic Substitute, Percutaneous Approach (ICD-10-PCS; 2023-09-13)
PROC: 047S3ZZ Dilation of Left Posterior Tibial Artery, Percutaneous Approach (ICD-10-PCS; 2023-09-13)
PROC: B40GYZZ Plain Radiography of Left Lower Extremity Arteries using Other Contrast (ICD-10-PCS; 2023-09-13)
PROC: 04CL0ZZ Extirpation of Matter from Left Femoral Artery, Open Approach (ICD-10-PCS; 2023-09-18)
PROC: 04UL3JZ Supplement Left Femoral Artery with Synthetic Substitute, Percutaneous Approach (ICD-10-PCS; 2023-09-18)
PROC: 047 Lower Arteries, Dilation (ICD-10-PCS; 2023-09-18)
PROC: B40GYZZ Plain Radiography of Left Lower Extremity Arteries using Other Contrast (ICD-10-PCS; 2023-09-18)
DX: T82.898A Other specified complication of vascular prosthetic devices, implants and grafts, initial encounter (principal); I82.402 Acute embolism and thrombosis of unspecified deep veins of left lower extremity; Y83.8 Other surgical procedures as the cause of abnormal reaction of the patient, or of later complication, without mention of misadventure at the time of the procedure; I10 Essential (primary) hypertension; E78.5 Hyperlipidemia, unspecified; J44.9 Chronic obstructive pulmonary disease, unspecified; T82.856A Stenosis of peripheral vascular stent, initial encounter; E03.9 Hypothyroidism, unspecified; I73.9 Peripheral vascular disease, unspecified; D64.9 Anemia, unspecified
CPT/HCPCS: 0241U-QW; 36415; 36430; 71045-TC-FY; 76000-TC-FY; 80048; 80053; 80061; 82728; 83540; 83550; 83605; 83735; 84100; 85025; 85027; 85610; 85730; 86850; 86900; 86901; 86922; 93005; 93010; 94760; 97116-GP; 97162-GP; 99285-25; C1725; C1757; C1768; J0131; J1644; J2997; P9058

== ENCOUNTER 2023-10-11 14:52 | Inpatient (IN) | payer OTHER ==
[2023-10-11] MEDS ORDERED: HYDROmorphone HCl 2 MG/ML VIAL ONE (16:50)
[2023-10-11] MEDS: HYDROmorphone HCl 2 MG/ML VIAL IVPUSH STA (16:55)
[2023-10-11] MEDS: SODIUM CHLORIDE 0.9% 500 ML INFUS.BAG IV ONE (16:55)
[2023-10-11 16:56] LABS: BASO % 0.8 % (0-2.0); EOS % 2.2 % (0-4.5); HEMATOCRIT 31.2 % (32.4-45.2); HEMOGLOBIN 10.2 GM/dL (10.7-15.3); LYMPH % 15.7 % (8-40); MCH 27.4 pg (25.7-33.7); MCHC 32.7 g/dl (32.0-36.0); MEAN CELL VOLUME 83.8 fl (80-96); MEAN PLT VOLUME 8.9 fl (7.5-11.1); MONO % 11.9 % (3.8-10.2); NEUT % 69.4 % (42.8-82.8); PLATELET COUNT 410 10^3/uL (134-434); RBC 3.73 M/mm3 (3.60-5.2); RDW 16.2 % (11.6-15.6); WHITE BLOOD COUNT 10.9 K/mm3 (4.0-10.0)
[2023-10-11] MEDS: HYDROmorphone HCl 2 MG/ML VIAL IVPUSH ONE (16:56)
[2023-10-11 17:04] LABS: INR 1.8 (0.83-1.09); PROTHROMBIN TIME (PATIENT) 20.8 SEC (9.7-13.0)
[2023-10-11 17:14] LABS: POTASSIUM 3.6 mmol/L (3.5-5.1)
[2023-10-11 17:16] LABS: ALBUMIN 2.6 g/dl (3.4-5.0); BLOOD UREA NITROGEN 15.2 mg/dL (7-18)
[2023-10-11 17:19] LABS: CREATININE 0.8 mg/dL (0.55-1.3)
[2023-10-11 17:21] LABS: BILIRUBIN,TOTAL 0.4 mg/dL (0.2-1); TOT PROT 6.8 g/dl (6.4-8.2)
[2023-10-11] MEDS ORDERED: ACETAMINOPHEN 325 MG TABLET (FP) PO PRN (20:18)
[2023-10-11] MEDS ORDERED: ACETAMINOPHEN INJECTION 100 ML IVPB ONE (22:56)
[2023-10-11] MEDS: ACETAMINOPHEN 1000 MG/100 ML BAG IVPB PRN (23:05)
[2023-10-12] MEDS: HYDROmorphone HCl 2 MG/ML VIAL IVPUSH ONE (00:59)
[2023-10-12] MEDS ORDERED: guaiFENesin 200 MG/10 ML 10 ML UNIT-DOSE CUPS PO PRN (05:03)
[2023-10-12] MEDS ORDERED: ALBUTEROL SO4 HFA INHALER IH PRN (06:12)
[2023-10-12 08:49] LABS: BASO % 0.3 % (0-2.0); EOS % 2.4 % (0-4.5); LYMPH % 17.5 % (8-40); MCH 27.4 pg (25.7-33.7); MCHC 32.2 g/dl (32.0-36.0); MEAN CELL VOLUME 85.2 fl (80-96); MEAN PLT VOLUME 9.4 fl (7.5-11.1); MONO % 13.7 % (3.8-10.2); NEUT % 66.1 % (42.8-82.8); PLATELET COUNT 366 10^3/uL (134-434); RBC 3.64 M/mm3 (3.60-5.2); RDW 16.2 % (11.6-15.6)
[2023-10-12 09:07] LABS: POTASSIUM 3.7 mmol/L (3.5-5.1)
[2023-10-12 09:14] LABS: BLOOD UREA NITROGEN 13.3 mg/dL (7-18); CALCIUM 9.2 mg/dL (8.5-10.1); MAGNESIUM 1.7 mg/dL (1.8-2.4)
[2023-10-12 09:18] LABS: CREATININE 0.6 mg/dL (0.55-1.3)
[2023-10-12] MEDS: LOSARTAN POTASSIUM 50 MG TABLET PO SCH (10:21)
[2023-10-12] MEDS: LEVOTHYROXINE NA 75 MCG TABLET (FP) PO SCH (10:21)
[2023-10-12] MEDS: POLYETHYLENE GLYCOL (HEALTHYLAX) 3350 17 GM PACKET PO SCH (10:42)
[2023-10-12] MEDS: HYDROmorphone HCl 2 MG/ML VIAL IVPUSH PRN (13:46)
[2023-10-12] MEDS: ASPIRIN COATED 81 MG TABLET.EC PO SCH (15:07)
[2023-10-12] MEDS: APIXABAN 5 MG TABLET PO SCH (15:08)
[2023-10-12] MEDS: CLOPIDOGREL BISULFATE 75 MG TABLET (FP) PO SCH (15:08)
[2023-10-12] MEDS: MAGNESIUM SULF 50% (8.12 MEQ/2 ML-1 GM VIAL) IVPB ONE (16:51)
[2023-10-12] MEDS ORDERED: LEVOTHYROXINE NA 75 MCG TABLET (FP) PO SCH (20:11)
[2023-10-12] MEDS: SENNOSIDES 8.6MG TABLET (FP) PO SCH (21:57)
[2023-10-12] MEDS: ATORVASTATIN CA 40 MG TABLET (FP) PO SCH (21:57)
[2023-10-13] MEDS: ACETAMINOPHEN 325 MG TABLET (FP) PO PRN (01:16)
[2023-10-13] MEDS: LEVOTHYROXINE 75 MCG, LEVOTHYROXINE 100 MCG PO SCH (06:07)
[2023-10-13] MEDS: VANCOMYCIN 1,000 MG VIAL (RESTRICTED TO ID ONLY) IVPB ONE (12:30)
[2023-10-13] MEDS ORDERED: ALBUTEROL SO4 HFA INHALER IH ONE (12:45)
[2023-10-13] MEDS ORDERED: MIDAZOLAM HCL 2 MG/2 ML SINGLE DOSE VIAL ONE (12:58)
[2023-10-13] MEDS ORDERED: ACETAMINOPHEN INJECTION 100 ML IVPB ONE (12:58)
[2023-10-13] MEDS ORDERED: ceFAZolin SODIUM 1 GM VIAL ONE (12:58)
[2023-10-13] MEDS ORDERED: VANCOMYCIN 1,000 MG VIAL (RESTRICTED TO ID ONLY) ONE (12:59)
[2023-10-13] MEDS ORDERED: HYDROmorphone HCl 2 MG/ML VIAL ONE (12:59)
[2023-10-13] MEDS: LIDOCAINE HCL 1% PRESERVATIVE FREE - 30ML VIAL IJ ONE ×2 (13:04)
[2023-10-13] MEDS: HEPARIN NA (PORCINE) 5,000 UNITS/ML 1ML VIAL SQ ONE (13:04)
[2023-10-13] MEDS ORDERED: MAGNESIUM SULF 50% (8.12 MEQ/2 ML-1 GM VIAL) ONE (13:14)
[2023-10-13] MEDS ORDERED: CALCIUM CHLORIDE 1 GM/10 ML *DISP.SYRIN ONE (13:15)
[2023-10-13] MEDS ORDERED: DEXAMETHASONE SOD PHOSPHATE 4 MG/1 ML VIAL ONE (13:35)
[2023-10-13] MEDS ORDERED: ONDANSETRON 4 MG/2 ML VIAL IVPUSH PRN (13:38)
[2023-10-13] MEDS ORDERED: LACTATED RINGERS SOLUTION 1,000 ML IV SCH ×3 (13:45→16:00)
[2023-10-13] MEDS ORDERED: ROCURONIUM BROMIDE 50 MG/5 ML SYRINGE ONE (13:52)
[2023-10-13] MEDS ORDERED: PROTAMINE SULFATE 50 MG/5 ML VIAL ONE (15:11)
[2023-10-13] MEDS ORDERED: LABETALOL HCL 20 MG/4 ML VIAL ONE (15:16)
[2023-10-13] MEDS ORDERED: ACETAMINOPHEN 325 MG TABLET (FP) PO PRN (15:51)
[2023-10-13] MEDS ORDERED: HYDROmorphone HCl 2 MG/ML VIAL IVPUSH PRN (15:51)
[2023-10-13] MEDS ORDERED: guaiFENesin 200 MG/10 ML 10 ML UNIT-DOSE CUPS PO PRN ×2 (15:51→16:00)
[2023-10-13] MEDS ORDERED: ALBUTEROL SO4 HFA INHALER IH PRN ×2 (15:51→16:00)
[2023-10-13 16:45] LABS: HEMATOCRIT 24.1 % (32.4-45.2); HEMOGLOBIN 7.6 GM/dL (10.7-15.3); MCH 26.8 pg (25.7-33.7); MCHC 31.6 g/dl (32.0-36.0); MEAN CELL VOLUME 84.7 fl (80-96); MEAN PLT VOLUME 9.3 fl (7.5-11.1); PLATELET COUNT 316 10^3/uL (134-434); RBC 2.85 M/mm3 (3.60-5.2); RDW 16.3 % (11.6-15.6); WHITE BLOOD COUNT 17.9 K/mm3 (4.0-10.0)
[2023-10-13] MEDS: ACETAMINOPHEN 1000 MG/100 ML BAG IVPB PRN (18:42)
[2023-10-13] MEDS: LACTATED RINGERS SOLUTION 1,000 ML/1,000 ML INFUS.BAG IV SCH (19:55)
[2023-10-13] MEDS: HYDROmorphone HCl 2 MG/ML VIAL IVPUSH PRN (20:52)
[2023-10-13] MEDS: SENNOSIDES 8.6MG TABLET (FP) PO SCH (21:28)
[2023-10-13] MEDS: ATORVASTATIN CA 40 MG TABLET (FP) PO SCH (21:28)
[2023-10-13] MEDS ORDERED: APIXABAN 5 MG TABLET PO SCH ×2 (22:00)
[2023-10-13] MEDS ORDERED: SENNOSIDES 8.6MG TABLET (FP) PO SCH (22:00)
[2023-10-13] MEDS ORDERED: ATORVASTATIN CA 40 MG TABLET (FP) PO SCH (22:00)
[2023-10-13] MEDS ORDERED: MUPIROCIN 2% TOPICAL OINTMENT FOR DECOLONIZATION NS SCH ×4 (22:00)
[2023-10-13] MEDS ORDERED: CHLORHEXIDINE GLUCONATE 4% CLEANSER FOR DECOLONIZATION TP SCH ×4 (22:00)
[2023-10-13 22:16] LABS: HEMATOCRIT 24.8 % (32.4-45.2); MCH 26.7 pg (25.7-33.7); MCHC 32.3 g/dl (32.0-36.0); MEAN CELL VOLUME 82.8 fl (80-96); PLATELET COUNT 268 10^3/uL (134-434); RBC 2.99 M/mm3 (3.60-5.2); RDW 15.9 % (11.6-15.6); WHITE BLOOD COUNT 19.8 K/mm3 (4.0-10.0)
[2023-10-13 22:24] LABS: INR 1.36 (0.83-1.09); PROTHROMBIN TIME (PATIENT) 15.7 SEC (9.7-13.0)
[2023-10-13 22:27] LABS: ACTIVATED PTT 29.6 SECONDS (25.2-36.5)
[2023-10-13 22:41] LABS: POTASSIUM 3.9 mmol/L (3.5-5.1)
[2023-10-13 22:43] LABS: CALCIUM 8.4 mg/dL (8.5-10.1)
[2023-10-13 22:44] LABS: BLOOD UREA NITROGEN 18.3 mg/dL (7-18); MAGNESIUM 1.6 mg/dL (1.8-2.4)
[2023-10-13 22:47] LABS: CREATININE 0.6 mg/dL (0.55-1.3)
[2023-10-13 22:48] LABS: BILIRUBIN,TOTAL 0.5 mg/dL (0.2-1); TOT PROT 4.8 g/dl (6.4-8.2)
[2023-10-13 22:51] LABS: ALBUMIN 1.8 g/dl (3.4-5.0)
[2023-10-13] MEDS: VANCOMYCIN/WATER FOR INJ (PEG) 1,000 MG/200 ML BAG IVPB SCH (23:50)
[2023-10-13] MEDS: MAGNESIUM SULFATE IN WATER 2 GM/50 ML IVPB IVPB ONE (23:50)
[2023-10-14 00:32] LABS: ANISOCYTOSIS 1+; OVALOCYTE 1+; PLATELET ESTIMATE ADEQUATE
[2023-10-14] MEDS: LEVOTHYROXINE 75 MCG, LEVOTHYROXINE 100 MCG PO SCH (06:09)
[2023-10-14] MEDS ORDERED: LEVOTHYROXINE 75 MCG, LEVOTHYROXINE 100 MCG PO SCH (07:00)
[2023-10-14] MEDS ORDERED: HEPARIN NA (PORCINE) 5,000 UNITS/ML 1ML VIAL IVPUSH PRN ×2 (07:19)
[2023-10-14 07:28] LABS: POTASSIUM 3.9 mmol/L (3.5-5.1)
[2023-10-14] MEDS ORDERED: HEPARIN INFUSION - 500 ML IV SCH (07:30)
[2023-10-14 07:43] LABS: CALCIUM 8.4 mg/dL (8.5-10.1)
[2023-10-14 07:44] LABS: BLOOD UREA NITROGEN 18.4 mg/dL (7-18); MAGNESIUM 1.8 mg/dL (1.8-2.4)
[2023-10-14 07:46] LABS: PHOSPHOROUS 3.2 mg/dL (2.5-4.9)
[2023-10-14 07:47] LABS: CREATININE 0.5 mg/dL (0.55-1.3)
[2023-10-14 07:48] LABS: BILIRUBIN,TOTAL 0.6 mg/dL (0.2-1); TOT PROT 5.1 g/dl (6.4-8.2)
[2023-10-14 07:51] LABS: HEMATOCRIT 23.8 % (32.4-45.2); MCH 27.6 pg (25.7-33.7); MCHC 33.6 g/dl (32.0-36.0); MEAN CELL VOLUME 82.2 fl (80-96); MEAN PLT VOLUME 9.9 fl (7.5-11.1); PLATELET COUNT 279 10^3/uL (134-434); RBC 2.89 M/mm3 (3.60-5.2); RDW 15.6 % (11.6-15.6); WHITE BLOOD COUNT 17.9 K/mm3 (4.0-10.0)
[2023-10-14] MEDS ORDERED: POLYETHYLENE GLYCOL (HEALTHYLAX) 3350 17 GM PACKET PO SCH (10:00)
[2023-10-14] MEDS ORDERED: CLOPIDOGREL BISULFATE 75 MG TABLET (FP) PO SCH (10:00)
[2023-10-14] MEDS ORDERED: LOSARTAN POTASSIUM 50 MG TABLET PO SCH ×2 (10:00)
[2023-10-14] MEDS ORDERED: ASPIRIN COATED 81 MG TABLET.EC PO SCH (10:00)
[2023-10-14] MEDS: HEPARIN INFUSION - 25,000 UNITS/500 ML INFUS.BAG IVPB SCH (11:10)
[2023-10-14] MEDS: POLYETHYLENE GLYCOL (HEALTHYLAX) 3350 17 GM PACKET PO SCH (11:28)
[2023-10-14] MEDS: ASPIRIN COATED 81 MG TABLET.EC PO SCH (11:28)
[2023-10-14] MEDS: CLOPIDOGREL BISULFATE 75 MG TABLET (FP) PO SCH (11:29)
[2023-10-14 18:39] LABS: PH,URINE 5.5 (5.0-8.0); URINE APPEARANCE CLEAR; URINE BILIRUBIN NEGATIVE (NEGATIVE); URINE COLOR YELLOW; URINE GLUCOSE (UA) NEGATIVE (NEGATIVE); URINE KETONE TRACE (NEGATIVE); URINE LEUK ESTERASE NEGATIVE (NEGATIVE); URINE NITRITE NEGATIVE (NEGATIVE); URINE PROTEIN NEGATIVE (NEGATIVE)
[2023-10-14] MEDS: ACETAMINOPHEN 325 MG TABLET (FP) PO PRN (22:14)
[2023-10-15] MEDS ORDERED: guaiFENesin 200 MG/10 ML 10 ML UNIT-DOSE CUPS PO PRN (01:07)
[2023-10-15] MEDS ORDERED: ALBUTEROL SO4 HFA INHALER IH PRN (01:07)
[2023-10-15] MEDS ORDERED: HEPARIN NA (PORCINE) 5,000 UNITS/ML 1ML VIAL IVPUSH PRN ×3 (01:07→11:02)
[2023-10-15] MEDS: HEPARIN NA (PORCINE) 5,000 UNITS/ML 1ML VIAL IVPUSH ONE (01:12)
[2023-10-15] MEDS: VANCOMYCIN/WATER FOR INJ (PEG) 1,000 MG/200 ML BAG IVPB SCH ×2 (01:13→01:44)
[2023-10-15] MEDS: HEPARIN NA (PORCINE) 5,000 UNITS/ML 1ML VIAL IVPUSH PRN (02:45)
[2023-10-15] MEDS: HEPARIN INFUSION - 25,000 UNITS/500 ML INFUS.BAG IVPB SCH ×2 (02:47→11:28)
[2023-10-15] MEDS: LEVOTHYROXINE 75 MCG, LEVOTHYROXINE 100 MCG PO SCH (06:37)
[2023-10-15 07:12] LABS: BASO % 0.2 % (0-2.0); EOS % 1.9 % (0-4.5); HEMATOCRIT 21.4 % (32.4-45.2); LYMPH % 12.9 % (8-40); MCH 27.2 pg (25.7-33.7); MCHC 32.5 g/dl (32.0-36.0); MEAN CELL VOLUME 83.8 fl (80-96); MEAN PLT VOLUME 9.9 fl (7.5-11.1); MONO % 10.8 % (3.8-10.2); NEUT % 74.2 % (42.8-82.8); PLATELET COUNT 228 10^3/uL (134-434); RBC 2.55 M/mm3 (3.60-5.2); WHITE BLOOD COUNT 12.3 K/mm3 (4.0-10.0)
[2023-10-15 07:31] LABS: HEMOGLOBIN 6.9 GM/dL (10.7-15.3)
[2023-10-15 08:04] LABS: ALBUMIN 2.1 g/dl (3.4-5.0); BILIRUBIN,TOTAL 0.4 mg/dL (0.2-1); BLOOD UREA NITROGEN 18.2 mg/dL (7-18); CREATININE 0.5 mg/dL (0.55-1.3); PHOSPHOROUS 2.1 mg/dL (2.5-4.9); POTASSIUM 3.9 mmol/L (3.5-5.1); TOT PROT 5.2 g/dl (6.4-8.2)
[2023-10-15] MEDS: HYDROmorphone HCl 2 MG/ML VIAL IVPUSH PRN (08:07)
[2023-10-15] MEDS: POLYETHYLENE GLYCOL (HEALTHYLAX) 3350 17 GM PACKET PO SCH (09:18)
[2023-10-15] MEDS: CLOPIDOGREL BISULFATE 75 MG TABLET (FP) PO SCH (09:18)
[2023-10-15] MEDS: LOSARTAN POTASSIUM 50 MG TABLET PO SCH (09:18)
[2023-10-15] MEDS: ASPIRIN COATED 81 MG TABLET.EC PO SCH (09:18)
[2023-10-15] MEDS: ACETAMINOPHEN 325 MG TABLET (FP) PO PRN (12:41)
[2023-10-15] MEDS: FUROSEMIDE 40 MG/4 ML INJECTABLE VIAL IVPUSH SCH (13:43)
[2023-10-15] MEDS: NAPH,MB-DB/K PH,MBDB POWDER PACKET PO SCH (14:29)
[2023-10-15] MEDS: HYDROmorphone HCl 2 MG/ML VIAL IVPUSH ONE (18:25)
[2023-10-15 21:07] LABS: BASO % 0.3 % (0-2.0); EOS % 2.5 % (0-4.5); HEMATOCRIT 29.1 % (32.4-45.2); HEMOGLOBIN 9.8 GM/dL (10.7-15.3); LYMPH % 17.6 % (8-40); MCH 28.6 pg (25.7-33.7); MCHC 33.6 g/dl (32.0-36.0); MEAN CELL VOLUME 85.1 fl (80-96); MEAN PLT VOLUME 9.6 fl (7.5-11.1); MONO % 10.8 % (3.8-10.2); NEUT % 68.8 % (42.8-82.8); PLATELET COUNT 204 10^3/uL (134-434); RBC 3.42 M/mm3 (3.60-5.2); RDW 16.1 % (11.6-15.6)
[2023-10-15] MEDS: SENNOSIDES 8.6MG TABLET (FP) PO SCH (23:01)
[2023-10-15] MEDS: ATORVASTATIN CA 40 MG TABLET (FP) PO SCH (23:01)
[2023-10-15] MEDS: APIXABAN 5 MG TABLET PO SCH (23:01)
[2023-10-16 07:41] LABS: BASO % 0.3 % (0-2.0); EOS % 3.2 % (0-4.5); HEMATOCRIT 28.5 % (32.4-45.2); HEMOGLOBIN 9.7 GM/dL (10.7-15.3); LYMPH % 17.6 % (8-40); MCHC 33.9 g/dl (32.0-36.0); MEAN CELL VOLUME 85.5 fl (80-96); MEAN PLT VOLUME 9.8 fl (7.5-11.1); NEUT % 68.9 % (42.8-82.8); PLATELET COUNT 211 10^3/uL (134-434); RBC 3.34 M/mm3 (3.60-5.2); RDW 15.7 % (11.6-15.6); WHITE BLOOD COUNT 9.7 K/mm3 (4.0-10.0)
[2023-10-16 08:54] LABS: ANISOCYTOSIS 0; MACROCYTOSIS 0
[2023-10-17 08:16] LABS: HEMATOCRIT 30.5 % (32.4-45.2); HEMOGLOBIN 10.2 GM/dL (10.7-15.3); MCH 29.1 pg (25.7-33.7); MCHC 33.3 g/dl (32.0-36.0); MEAN CELL VOLUME 87.2 fl (80-96); MEAN PLT VOLUME 9.5 fl (7.5-11.1); PLATELET COUNT 259 10^3/uL (134-434); RBC 3.49 M/mm3 (3.60-5.2); RDW 16.2 % (11.6-15.6); WHITE BLOOD COUNT 9.3 K/mm3 (4.0-10.0)
[2023-10-17 08:21] LABS: POTASSIUM 3.5 mmol/L (3.5-5.1)
[2023-10-17 08:28] LABS: CALCIUM 7.9 mg/dL (8.5-10.1)
[2023-10-17 08:29] LABS: BLOOD UREA NITROGEN 13.2 mg/dL (7-18)
[2023-10-17 08:32] LABS: CREATININE 0.6 mg/dL (0.55-1.3)
[2023-10-17 10:15] LABS: ANISOCYTOSIS 0; MACROCYTOSIS 0
[2023-10-18] MEDS ORDERED: PATIENT'S OWN MEDICATION (NON-FORMULARY) (Alendronate Sodium [Fosamax] 70 MG Tablet) PO SCH (07:00)
[2023-10-18 07:48] LABS: HEMATOCRIT 28.5 % (32.4-45.2); HEMOGLOBIN 9.5 GM/dL (10.7-15.3); MCH 29.2 pg (25.7-33.7); MCHC 33.4 g/dl (32.0-36.0); MEAN CELL VOLUME 87.6 fl (80-96); MEAN PLT VOLUME 9.3 fl (7.5-11.1); PLATELET COUNT 278 10^3/uL (134-434); RBC 3.25 M/mm3 (3.60-5.2); RDW 16.3 % (11.6-15.6); WHITE BLOOD COUNT 9.8 K/mm3 (4.0-10.0)
[2023-10-18 07:57] LABS: POTASSIUM 3.5 mmol/L (3.5-5.1)
[2023-10-18 08:08] LABS: BLOOD UREA NITROGEN 20.2 mg/dL (7-18)
[2023-10-18 08:10] LABS: CREATININE 0.5 mg/dL (0.55-1.3)
[2023-10-18 09:42] LABS: ANISOCYTOSIS 2+; MACROCYTOSIS 0
[2023-10-18] MEDS: oxyCODONE HCL 5 MG TABLET PO PRN (11:35)
[2023-10-18] MEDS: POTASSIUM CHLORIDE ORAL LIQUID 20 MEQ/15 ML PO ONE (18:53)
[2023-10-19 06:26] LABS: HEMATOCRIT 27.1 % (32.4-45.2); MCH 29.2 pg (25.7-33.7); MCHC 33.1 g/dl (32.0-36.0); MEAN CELL VOLUME 88.1 fl (80-96); MEAN PLT VOLUME 9.2 fl (7.5-11.1); PLATELET COUNT 292 10^3/uL (134-434); RBC 3.08 M/mm3 (3.60-5.2); RDW 16.7 % (11.6-15.6); WHITE BLOOD COUNT 10.4 K/mm3 (4.0-10.0)
[2023-10-19 06:48] LABS: POTASSIUM 3.8 mmol/L (3.5-5.1)
[2023-10-19 06:50] LABS: BLOOD UREA NITROGEN 17.4 mg/dL (7-18)
[2023-10-19 06:53] LABS: CREATININE 0.6 mg/dL (0.55-1.3)
[2023-10-19] MEDS: oxyCODONE HCL 5 MG TABLET PO PRN (12:34)
[2023-10-19 20:55] VITALS: BMI 23.9
[2023-10-20 06:40] LABS: HEMATOCRIT 27.2 % (32.4-45.2); HEMOGLOBIN 8.9 GM/dL (10.7-15.3); MCH 28.9 pg (25.7-33.7); MCHC 32.7 g/dl (32.0-36.0); MEAN CELL VOLUME 88.5 fl (80-96); MEAN PLT VOLUME 9.2 fl (7.5-11.1); PLATELET COUNT 302 10^3/uL (134-434); RBC 3.07 M/mm3 (3.60-5.2); RDW 17.2 % (11.6-15.6); WHITE BLOOD COUNT 11.4 K/mm3 (4.0-10.0)
[2023-10-20] MEDS: ASCORBIC ACID 500 MG TABLET (FP) PO SCH (09:21)
[2023-10-20] MEDS: MULTIVITAMINS THER W-MINERALS COMBO TABLET (FP) PO SCH (09:21)
[2023-10-20] MEDS ORDERED: INSULIN (NOVOLOG) ASPART 100 UNITS/ML 10ML VIAL ONE (11:40)
[2023-10-20 15:30] VITALS: BP 98/83; PULSE 77; RESP 16; TEMP 98.6
== END 2023-10-20 20:00 | DRG 253 ==
LOC: JER 14:52 → JERBED 16:30 → J7W 10-12 02:20 → JICU 10-13 17:21 → J4W 10-15 01:07
PROVIDERS: ADMIT Internal Medicine; ATTEND Family Medicine
PROC: 30233N1 Transfusion of Nonautologous Red Blood Cells into Peripheral Vein, Percutaneous Approach (ICD-10-PCS; 2023-10-13)
PROC: 041 Lower Arteries, Bypass (ICD-10-PCS; principal; 2023-10-13 12:00)
DX: T82.898A Other specified complication of vascular prosthetic devices, implants and grafts, initial encounter (principal); I70.262 Atherosclerosis of native arteries of extremities with gangrene, left leg; K57.32 Diverticulitis of large intestine without perforation or abscess without bleeding; J44.9 Chronic obstructive pulmonary disease, unspecified; I10 Essential (primary) hypertension; E03.9 Hypothyroidism, unspecified; E78.5 Hyperlipidemia, unspecified; N28.89 Other specified disorders of kidney and ureter; E83.42 Hypomagnesemia; D64.9 Anemia, unspecified; Y83.9 Surgical procedure, unspecified as the cause of abnormal reaction of the patient, or of later complication, without mention of misadventure at the time of the procedure
CPT/HCPCS: 36415; 36430; 75635-TC; 76000-TC-FY; 80048; 80053; 81003; 82550; 83735; 84100; 84439; 84443; 85025; 85027; 85610; 85730; 86850; 86900; 86901; 86922; 87040; 87086; 87635; 93005; 93010; 94760; 97116-GP; 97162-GP; 99285-25; C1768; C1769; G0480; J0131; J1644; P9038; P9058; Q9967

== ENCOUNTER 2023-12-08 12:30 | Inpatient (IN) | payer OTHER ==
[2023-12-08] MEDS ORDERED: HEPARIN NA (PORCINE) 5,000 UNITS/ML 1ML VIAL ONE (13:45)
[2023-12-08 13:57] LABS: BASO % 0.3 % (0-2.0); EOS % 0.2 % (0-4.5); HEMATOCRIT 27.6 % (32.4-45.2); HEMOGLOBIN 8.8 GM/dL (10.7-15.3); LYMPH % 9.5 % (8-40); MCH 26.2 pg (25.7-33.7); MCHC 31.8 g/dl (32.0-36.0); MEAN CELL VOLUME 82.2 fl (80-96); MEAN PLT VOLUME 8.6 fl (7.5-11.1); MONO % 12.1 % (3.8-10.2); NEUT % 77.9 % (42.8-82.8); PLATELET COUNT 399 10^3/uL (134-434); RBC 3.35 M/mm3 (3.60-5.2); RDW 18.6 % (11.6-15.6); WHITE BLOOD COUNT 14.9 K/mm3 (4.0-10.0)
[2023-12-08 14:00] LABS: INR 2.44 (0.83-1.09); PROTHROMBIN TIME (PATIENT) 28.1 SEC (9.7-13.0)
[2023-12-08 14:03] LABS: ACTIVATED PTT 30.6 SECONDS (25.2-36.5)
[2023-12-08] MEDS ORDERED: PROPOFOL 20 ML ONE (14:03)
[2023-12-08] MEDS ORDERED: MIDAZOLAM HCL 2 MG/2 ML SINGLE DOSE VIAL ONE ×2 (14:03→14:58)
[2023-12-08] MEDS ORDERED: FENTANYL CITRATE/PF 50 MCG/ML VIAL ONE ×4 (14:03→17:43)
[2023-12-08 14:10] LABS: POTASSIUM 4.4 mmol/L (3.5-5.1)
[2023-12-08 14:14] LABS: CALCIUM 8.4 mg/dL (8.5-10.1)
[2023-12-08 14:15] LABS: ALBUMIN 1.8 g/dl (3.4-5.0); BLOOD UREA NITROGEN 12.2 mg/dL (7-18)
[2023-12-08 14:18] LABS: CREATININE 0.7 mg/dL (0.55-1.3)
[2023-12-08 14:19] LABS: BILIRUBIN,TOTAL 0.4 mg/dL (0.2-1); TOT PROT 6.5 g/dl (6.4-8.2)
[2023-12-08] MEDS: PIPERACILLIN/TAZOBACTAM 2.25 GM VIAL IVPB ONE (14:55)
[2023-12-08] MEDS: VANCOMYCIN 1,000 MG VIAL (RESTRICTED TO ID ONLY) IVPB ONE (14:55)
[2023-12-08] MEDS ORDERED: ROCURONIUM BROMIDE 50 MG/5 ML SYRINGE ONE (15:07)
[2023-12-08] MEDS ORDERED: ceFAZolin SODIUM 1 GM VIAL ONE (15:07)
[2023-12-08] MEDS ORDERED: SUGAMMADEX SODIUM 200 MG/2 ML VIAL ONE (16:04)
[2023-12-08] MEDS ORDERED: ONDANSETRON 4 MG/2 ML VIAL IVPUSH PRN (16:31)
[2023-12-08] MEDS: PIPERACILLIN/TAZOB 3.375 GM 3.375 GM in DEXTROSE 5%-WATER - 50 ML IVPB ONE (16:59)
[2023-12-08] MEDS: LACTATED RINGERS SOLUTION 1,000 ML/1,000 ML INFUS.BAG IV SCH ×2 (18:19→18:31)
[2023-12-08] MEDS: LACTATED RINGERS SOLUTION 1,000 ML IV SCH (18:31)
[2023-12-08 20:20] LABS: HEMATOCRIT 28.9 % (32.4-45.2); HEMOGLOBIN 9.6 GM/dL (10.7-15.3); MCH 27.7 pg (25.7-33.7); MCHC 33.1 g/dl (32.0-36.0); MEAN CELL VOLUME 83.6 fl (80-96); MEAN PLT VOLUME 8.5 fl (7.5-11.1); PLATELET COUNT 279 10^3/uL (134-434); RBC 3.46 M/mm3 (3.60-5.2); RDW 16.1 % (11.6-15.6); WHITE BLOOD COUNT 15.3 K/mm3 (4.0-10.0)
[2023-12-08] MEDS ORDERED: MUPIROCIN 2% TOPICAL OINTMENT FOR DECOLONIZATION NS SCH (22:00)
[2023-12-08] MEDS ORDERED: CHLORHEXIDINE GLUCONATE 4% CLEANSER FOR DECOLONIZATION TP SCH (22:00)
[2023-12-08] MEDS: morphine SULFATE 4 MG/ML VIAL IVPUSH PRN (22:30)
[2023-12-08] MEDS: CHLORHEXIDINE GLUCONATE 4% CLEANSER FOR DECOLONIZATION TP SCH (22:32)
[2023-12-08] MEDS: MUPIROCIN 2% TOPICAL OINTMENT FOR DECOLONIZATION NS SCH (22:32)
[2023-12-08] MEDS: PIPERACILLIN/TAZOB 3.375 GM 3.375 GM in DEXTROSE 5%-WATER - 50 ML IVPB SCH (22:33)
[2023-12-08] MEDS: INSULIN ASPART SLIDING SCALE (NOVOLOG) 1 VIAL SQ SCH (23:00)
[2023-12-09] MEDS: VANCOMYCIN/WATER FOR INJ (PEG) 1,000 MG/200 ML BAG IVPB SCH ×2 (04:15→16:18)
[2023-12-09 06:30] LABS: BASO % 0.3 % (0-2.0); HEMATOCRIT 25.2 % (32.4-45.2); HEMOGLOBIN 8.3 GM/dL (10.7-15.3); LYMPH % 8.6 % (8-40); MCH 27.5 pg (25.7-33.7); MCHC 33.1 g/dl (32.0-36.0); MEAN CELL VOLUME 83.2 fl (80-96); MEAN PLT VOLUME 8.8 fl (7.5-11.1); MONO % 10.9 % (3.8-10.2); NEUT % 80.2 % (42.8-82.8); PLATELET COUNT 276 10^3/uL (134-434); RBC 3.03 M/mm3 (3.60-5.2); RDW 16.2 % (11.6-15.6); WHITE BLOOD COUNT 18.4 K/mm3 (4.0-10.0)
[2023-12-09 06:40] LABS: INR 1.86 (0.83-1.09); PROTHROMBIN TIME (PATIENT) 21.4 SEC (9.7-13.0)
[2023-12-09 06:42] LABS: ACTIVATED PTT 29.7 SECONDS (25.2-36.5)
[2023-12-09 06:51] LABS: POTASSIUM 4.2 mmol/L (3.5-5.1)
[2023-12-09 06:58] LABS: CALCIUM 7.2 mg/dL (8.5-10.1)
[2023-12-09 06:59] LABS: BLOOD UREA NITROGEN 12.1 mg/dL (7-18); MAGNESIUM 1.5 mg/dL (1.8-2.4)
[2023-12-09 07:01] LABS: CREATININE 0.6 mg/dL (0.55-1.3); PHOSPHOROUS 3.2 mg/dL (2.5-4.9)
[2023-12-09 07:03] LABS: BILIRUBIN,TOTAL 0.5 mg/dL (0.2-1); TOT PROT 4.6 g/dl (6.4-8.2)
[2023-12-09 07:05] LABS: ALBUMIN 1.3 g/dl (3.4-5.0)
[2023-12-09] MEDS ORDERED: POLYETHYLENE GLYCOL (HEALTHYLAX) 3350 17 GM PACKET PO PRN (07:49)
[2023-12-09] MEDS: MAGNESIUM SULF 50% (8.12 MEQ/2 ML-1 GM VIAL) IVPB ONE (10:02)
[2023-12-09] MEDS: APIXABAN 5 MG TABLET PO SCH (10:03)
[2023-12-09] MEDS: CLOPIDOGREL BISULFATE 75 MG TABLET (FP) PO SCH (10:03)
[2023-12-09] MEDS: LEVOTHYROXINE SODIUM 100 MCG 5 ML VIAL IVPUSH SCH (10:37)
[2023-12-09] MEDS: PIPERACILLIN/TAZOB 3.375 GM 3.375 GM in DEXTROSE 5%-WATER - 50 ML IVPB SCH (14:24)
[2023-12-09] MEDS ORDERED: VANCOMYCIN 1 GM PREMIX - 1 GM/200 ML BAG IVPB SCH (15:15)
[2023-12-09] MEDS ORDERED: VANCOMYCIN/WATER FOR INJ (PEG) 1,000 MG/200 ML BAG IVPB SCH ×2 (15:30→16:00)
[2023-12-09 20:04] LABS: BASO % 0.3 % (0-2.0); EOS % 1.2 % (0-4.5); HEMATOCRIT 25.3 % (32.4-45.2); HEMOGLOBIN 8.3 GM/dL (10.7-15.3); MCH 27.5 pg (25.7-33.7); MCHC 32.6 g/dl (32.0-36.0); MEAN CELL VOLUME 84.2 fl (80-96); MEAN PLT VOLUME 8.7 fl (7.5-11.1); MONO % 12.4 % (3.8-10.2); NEUT % 70.1 % (42.8-82.8); PLATELET COUNT 285 10^3/uL (134-434); RDW 16.7 % (11.6-15.6); WHITE BLOOD COUNT 11.8 K/mm3 (4.0-10.0)
[2023-12-09 20:13] LABS: POTASSIUM 4.4 mmol/L (3.5-5.1)
[2023-12-09 20:15] LABS: CALCIUM 7.3 mg/dL (8.5-10.1)
[2023-12-09 20:16] LABS: ALBUMIN 1.3 g/dl (3.4-5.0); BLOOD UREA NITROGEN 10.8 mg/dL (7-18); MAGNESIUM 2.2 mg/dL (1.8-2.4)
[2023-12-09 20:19] LABS: CREATININE 0.6 mg/dL (0.55-1.3)
[2023-12-09 20:20] LABS: TOT PROT 4.7 g/dl (6.4-8.2)
[2023-12-09 20:21] LABS: BILIRUBIN,TOTAL 0.4 mg/dL (0.2-1)
[2023-12-10 07:24] LABS: BASO % 0.3 % (0-2.0); EOS % 3.1 % (0-4.5); HEMATOCRIT 26.7 % (32.4-45.2); HEMOGLOBIN 8.9 GM/dL (10.7-15.3); LYMPH % 12.6 % (8-40); MCHC 33.5 g/dl (32.0-36.0); MEAN CELL VOLUME 83.5 fl (80-96); MEAN PLT VOLUME 8.8 fl (7.5-11.1); MONO % 13.3 % (3.8-10.2); NEUT % 70.7 % (42.8-82.8); PLATELET COUNT 298 10^3/uL (134-434); RBC 3.19 M/mm3 (3.60-5.2); RDW 16.1 % (11.6-15.6); WHITE BLOOD COUNT 10.9 K/mm3 (4.0-10.0)
[2023-12-10 07:42] LABS: POTASSIUM 4.1 mmol/L (3.5-5.1)
[2023-12-10 07:46] LABS: ALBUMIN 1.2 g/dl (3.4-5.0); BLOOD UREA NITROGEN 8.8 mg/dL (7-18); CALCIUM 7.1 mg/dL (8.5-10.1)
[2023-12-10 07:49] LABS: CREATININE 0.5 mg/dL (0.55-1.3); PHOSPHOROUS 1.9 mg/dL (2.5-4.9)
[2023-12-10 07:51] LABS: BILIRUBIN,TOTAL 0.4 mg/dL (0.2-1); TOT PROT 4.8 g/dl (6.4-8.2)
[2023-12-10] MEDS: NAPH,MB-DB/K PH,MBDB POWDER PACKET PO ONE (08:51)
[2023-12-10] MEDS: AMINO ACIDS/PROTEIN HYDROLYS 30 ML LIQUID.PKT PO SCH (08:51)
[2023-12-10] MEDS: ROSUVASTATIN CA 20 MG TABLET PO SCH (09:00)
[2023-12-10] MEDS: MULTIVITAMINS THER W-MINERALS COMBO TABLET (FP) PO SCH (09:00)
[2023-12-10] MEDS: INSULIN ASPART SLIDING SCALE (NOVOLOG) 1 VIAL SQ SCH (09:02)
[2023-12-10] MEDS: PIPERACILLIN/TAZOB 3.375 GM 3.375 GM in DEXTROSE 5%-WATER - 50 ML IVPB ONE (09:02)
[2023-12-10] MEDS: VANCOMYCIN/WATER FOR INJ (PEG) 1,000 MG/200 ML BAG IVPB SCH (09:02)
[2023-12-10] MEDS: VANCOMYCIN 1 GM PREMIX - 1 GM/200 ML BAG IVPB SCH (09:02)
[2023-12-10] MEDS: LACTATED RINGERS SOLUTION 1,000 ML/1,000 ML INFUS.BAG IV SCH (09:03)
[2023-12-10] MEDS ORDERED: MELATONIN 5 MG, MELATONIN 1 MG PO PRN (09:29)
[2023-12-10] MEDS: LEVOTHYROXINE NA 100 MCG TABLET (FP) PO SCH (09:34)
[2023-12-10] MEDS: LOSARTAN POTASSIUM 50 MG TABLET PO SCH (11:00)
[2023-12-10] MEDS: HYDROmorphone HCl 2 MG/ML VIAL IVPUSH ONE (11:15)
[2023-12-10] MEDS: HYDROmorphone HCl 2 MG/ML VIAL IVPUSH PRN ×2 (12:31→16:43)
[2023-12-10] MEDS: LACTATED RINGERS SOLUTION 1,000 ML/1,000 ML INFUS.BAG IV STA (21:48)
[2023-12-10] MEDS ORDERED: PATIENT'S OWN MEDICATION (NON-FORMULARY) (Melatonin [Melatonin] 3 MG Tablet) PO SCH (22:00)
[2023-12-11] MEDS ORDERED: morphine SULFATE 4 MG/ML VIAL IVPUSH PRN (07:16)
[2023-12-11] MEDS: LACTATED RINGERS SOLUTION 1,000 ML IV SCH (07:25)
[2023-12-11] MEDS: AMINO ACIDS/PROTEIN HYDROLYS 30 ML LIQUID.PKT PO SCH (08:48)
[2023-12-11] MEDS: CLOPIDOGREL BISULFATE 75 MG TABLET (FP) PO SCH (09:54)
[2023-12-11] MEDS: ROSUVASTATIN CA 20 MG TABLET PO SCH (09:54)
[2023-12-11] MEDS: APIXABAN 5 MG TABLET PO SCH (09:56)
[2023-12-11] MEDS: MULTIVITAMINS THER W-MINERALS COMBO TABLET (FP) PO SCH (09:56)
[2023-12-11] MEDS: LOSARTAN POTASSIUM 50 MG TABLET PO SCH (11:20)
[2023-12-11] MEDS: INSULIN ASPART SLIDING SCALE (NOVOLOG) 1 VIAL SQ SCH ×2 (11:22→16:17)
[2023-12-11] MEDS: PIPERACILLIN/TAZOB 4.5 GM 4.5 GM in DEXTROSE 5%-WATER 100 ML IVPB SCH (12:46)
[2023-12-11] MEDS ORDERED: PIPERACILLIN/TAZOB 3.375 GM 3.375 GM in DEXTROSE 5%-WATER - 50 ML IVPB SCH (14:00)
[2023-12-11] MEDS: VANCOMYCIN/WATER FOR INJ (PEG) 1,000 MG/200 ML BAG IVPB SCH (14:26)
[2023-12-11] MEDS ORDERED: VANCOMYCIN/WATER FOR INJ (PEG) 1,000 MG/200 ML BAG IVPB SCH (16:00)
[2023-12-11] MEDS ORDERED: PIPERACILLIN/TAZOB 4.5 GM 4.5 GM in DEXTROSE 5%-WATER 100 ML IVPB SCH (18:00)
[2023-12-12] MEDS: LEVOTHYROXINE NA 100 MCG TABLET (FP) PO SCH (06:18)
[2023-12-12] MEDS: LOSARTAN POTASSIUM 50 MG TABLET PO SCH (09:50)
[2023-12-12 11:50] LABS: HEMATOCRIT 25.2 % (32.4-45.2); HEMOGLOBIN 8.4 GM/dL (10.7-15.3); MCH 28.2 pg (25.7-33.7); MCHC 33.4 g/dl (32.0-36.0); MEAN CELL VOLUME 84.5 fl (80-96); MEAN PLT VOLUME 8.1 fl (7.5-11.1); PLATELET COUNT 410 10^3/uL (134-434); RBC 2.99 M/mm3 (3.60-5.2); RDW 16.8 % (11.6-15.6); WHITE BLOOD COUNT 8.6 K/mm3 (4.0-10.0)
[2023-12-12 11:59] LABS: POTASSIUM 3.3 mmol/L (3.5-5.1)
[2023-12-12 12:02] LABS: ALBUMIN 1.2 g/dl (3.4-5.0); BLOOD UREA NITROGEN 6.6 mg/dL (7-18); CALCIUM 7.3 mg/dL (8.5-10.1); MAGNESIUM 1.7 mg/dL (1.8-2.4)
[2023-12-12 12:06] LABS: CREATININE 0.5 mg/dL (0.55-1.3); PHOSPHOROUS 2.2 mg/dL (2.5-4.9)
[2023-12-12 12:07] LABS: BILIRUBIN,TOTAL 0.4 mg/dL (0.2-1); TOT PROT 4.8 g/dl (6.4-8.2)
[2023-12-12 12:12] LABS: ANISOCYTOSIS 2+; MACROCYTOSIS 0
[2023-12-12] MEDS: MAGNESIUM SULF 50% (8.12 MEQ/2 ML-1 GM VIAL) IVPB ONE (20:12)
[2023-12-12] MEDS: POTASSIUM CHLORIDE ORAL LIQUID 20 MEQ/15 ML PO ONE (20:12)
[2023-12-12] MEDS: NAPH,MB-DB/K PH,MBDB POWDER PACKET PO SCH (20:12)
[2023-12-13 08:45] LABS: HEMATOCRIT 26.6 % (32.4-45.2); MCH 28.5 pg (25.7-33.7); MCHC 33.7 g/dl (32.0-36.0); MEAN CELL VOLUME 84.6 fl (80-96); PLATELET COUNT 497 10^3/uL (134-434); RBC 3.14 M/mm3 (3.60-5.2); RDW 17.2 % (11.6-15.6); WHITE BLOOD COUNT 10.3 K/mm3 (4.0-10.0)
[2023-12-13 09:03] LABS: INR 1.49 (0.83-1.09); POTASSIUM 3.7 mmol/L (3.5-5.1); PROTHROMBIN TIME (PATIENT) 17.2 SEC (9.7-13.0)
[2023-12-13 09:05] LABS: ACTIVATED PTT 28.3 SECONDS (25.2-36.5)
[2023-12-13 09:10] LABS: ALBUMIN 1.3 g/dl (3.4-5.0); BLOOD UREA NITROGEN 7.5 mg/dL (7-18); MAGNESIUM 2.2 mg/dL (1.8-2.4)
[2023-12-13 09:13] LABS: BILIRUBIN,TOTAL 0.4 mg/dL (0.2-1); CREATININE 0.5 mg/dL (0.55-1.3); TOT PROT 5.2 g/dl (6.4-8.2)
[2023-12-13 09:14] LABS: PHOSPHOROUS 2.1 mg/dL (2.5-4.9)
[2023-12-13 10:14] LABS: ANISOCYTOSIS 0; MACROCYTOSIS 0
[2023-12-13 15:51] VITALS: BMI 21.7
[2023-12-13] MEDS: ACETAMINOPHEN 1000 MG/100 ML BAG IVPB PRN (18:13)
[2023-12-14 08:02] LABS: HEMATOCRIT 26.7 % (32.4-45.2); HEMOGLOBIN 9.1 GM/dL (10.7-15.3); MCH 28.5 pg (25.7-33.7); MEAN CELL VOLUME 83.7 fl (80-96); MEAN PLT VOLUME 7.9 fl (7.5-11.1); PLATELET COUNT 563 10^3/uL (134-434); RBC 3.19 M/mm3 (3.60-5.2); RDW 17.3 % (11.6-15.6); WHITE BLOOD COUNT 9.4 K/mm3 (4.0-10.0)
[2023-12-14 08:25] LABS: POTASSIUM 3.5 mmol/L (3.5-5.1)
[2023-12-14 08:28] LABS: BLOOD UREA NITROGEN 7.7 mg/dL (7-18); CALCIUM 7.8 mg/dL (8.5-10.1)
[2023-12-14 08:29] LABS: ALBUMIN 1.3 g/dl (3.4-5.0)
[2023-12-14 08:31] LABS: CREATININE 0.5 mg/dL (0.55-1.3)
[2023-12-14 08:33] LABS: BILIRUBIN,TOTAL 0.6 mg/dL (0.2-1); TOT PROT 5.2 g/dl (6.4-8.2)
[2023-12-15 08:38] LABS: HEMATOCRIT 28.7 % (32.4-45.2); HEMOGLOBIN 9.6 GM/dL (10.7-15.3); MCH 28.4 pg (25.7-33.7); MCHC 33.6 g/dl (32.0-36.0); MEAN CELL VOLUME 84.6 fl (80-96); PLATELET COUNT 635 10^3/uL (134-434); RBC 3.39 M/mm3 (3.60-5.2); RDW 17.5 % (11.6-15.6); WHITE BLOOD COUNT 10.4 K/mm3 (4.0-10.0)
[2023-12-15 09:08] LABS: ALBUMIN 1.4 g/dl (3.4-5.0); BILIRUBIN,TOTAL 0.6 mg/dL (0.2-1); BLOOD UREA NITROGEN 9.4 mg/dL (7-18); CREATININE 0.6 mg/dL (0.55-1.3); POTASSIUM 3.6 mmol/L (3.5-5.1); TOT PROT 5.7 g/dl (6.4-8.2)
[2023-12-15 12:47] LABS: HEMATOCRIT 9.4 % (32.4-45.2); MCH 28.6 pg (25.7-33.7); MCHC 32.5 g/dl (32.0-36.0); MEAN PLT VOLUME 7.3 fl (7.5-11.1); PLATELET COUNT 256 10^3/uL (134-434); RBC 1.07 M/mm3 (3.60-5.2); RDW 17.4 % (11.6-15.6); WHITE BLOOD COUNT 4.9 K/mm3 (4.0-10.0)
[2023-12-15 12:50] LABS: HEMOGLOBIN 3.1 GM/dL (10.7-15.3)
[2023-12-15] MEDS ORDERED: PROPOFOL 20 ML ONE (12:55)
[2023-12-15] MEDS ORDERED: SUCCINYLCHOLINE CHLORIDE 200 MG/10 ML SYRINGE ONE (12:55)
[2023-12-15] MEDS ORDERED: HEPARIN NA (PORCINE) 5,000 UNITS/ML 1ML VIAL ONE ×3 (12:57→16:12)
[2023-12-15] MEDS ORDERED: LIDOCAINE HCL 1%, 10 MG/ML (20ML VIAL) ONE (12:57)
[2023-12-15] MEDS ORDERED: ROCURONIUM BROMIDE 50 MG/5 ML SYRINGE ONE ×5 (13:10→16:48)
[2023-12-15] MEDS ORDERED: FENTANYL CITRATE/PF 50 MCG/ML VIAL ONE ×3 (13:48→14:27)
[2023-12-15] MEDS ORDERED: POVIDONE-IODINE OINTMENT 10% - 28.4 GM TUBE ONE (14:22)
[2023-12-15] MEDS ORDERED: BENZOIN/ALOE VERA/STORAX/TOLU 58 ML BOTTLE ONE (14:42)
[2023-12-15] MEDS ORDERED: MIDAZOLAM HCL 2 MG/2 ML SINGLE DOSE VIAL ONE ×4 (14:46→16:43)
[2023-12-15] MEDS ORDERED: NITROGLYCERIN 50 MG/10 ML VIAL IVPB ONE (16:01)
[2023-12-15 16:24] LABS: HEMATOCRIT 30.2 % (32.4-45.2); HEMOGLOBIN 9.8 GM/dL (10.7-15.3); MCH 27.7 pg (25.7-33.7); MCHC 32.6 g/dl (32.0-36.0); MEAN CELL VOLUME 84.9 fl (80-96); MEAN PLT VOLUME 8.2 fl (7.5-11.1); PLATELET COUNT 405 10^3/uL (134-434); RBC 3.56 M/mm3 (3.60-5.2); RDW 16.7 % (11.6-15.6); WHITE BLOOD COUNT 17.8 K/mm3 (4.0-10.0)
[2023-12-15 16:40] LABS: CHLORIDE 110 mmol/L (98-107); POTASSIUM 3.6 mmol/L (3.5-5.1); SODIUM 136 mmol/L (136-145)
[2023-12-15 16:45] LABS: ALBUMIN 1.4 g/dl (3.4-5.0); ANION GAP 3 mmol/L (4-13); BLOOD UREA NITROGEN 11.3 mg/dL (7-18); CO2 24 mmol/L (21-32); GLUCOSE,RANDOM 172 mg/dL (74-106)
[2023-12-15 16:48] LABS: CREATININE 0.5 mg/dL (0.55-1.3); SGOT/AST 25 U/L (15-37)
[2023-12-15 16:50] LABS: BILIRUBIN,TOTAL 0.6 mg/dL (0.2-1); SGPT/ALT 12 U/L (13-61); TOT PROT 4.7 g/dl (6.4-8.2)
[2023-12-15 16:54] LABS: ALK PHOS 73 U/L (45-117)
[2023-12-15] MEDS ORDERED: HEPARIN NA (PORCINE) 5,000 UNITS/ML 1ML VIAL IVPUSH PRN ×2 (17:09)
[2023-12-15] MEDS ORDERED: HEPARIN INFUSION - 25,000 UNITS/500 ML INFUS.BAG IVPB SCH (17:15)
[2023-12-15] MEDS ORDERED: NOREPINEPHRINE BITARTRATE 4,000 MCG in DEXTROSE 5%-WATER - 496 ML IV SCH (17:15)
[2023-12-15] MEDS: HEPARIN INFUSION - 25,000 UNITS/500 ML INFUS.BAG IVPB SCH (18:17)
[2023-12-15] MEDS: LACTATED RINGERS SOLUTION 1,000 ML/1,000 ML INFUS.BAG IV SCH ×2 (18:17→21:05)
[2023-12-15] MEDS: PROPOFOL 1,000,000 MCG/100 ML VIAL IVPB SCH (18:18)
[2023-12-15] MEDS: FENTANYL NS IVPB 500 MCG/100 ML BAG IVPB SCH (18:19)
[2023-12-15 18:23] LABS: CALCIUM 6.7 mg/dL (8.5-10.1)
[2023-12-15] MEDS: NOREPINEPHRINE BITARTRATE/D5W 8 MG/250 ML BAG IVPB SCH (19:00)
[2023-12-15] MEDS: LACTATED RINGERS SOLUTION 1000 ML INFUS.BAG IV ONE (20:20)
[2023-12-15] MEDS ORDERED: INSULIN (NOVOLOG) ASPART 100 UNITS/ML 10ML VIAL ONE (22:10)
[2023-12-16 05:56] LABS: HEMATOCRIT 34.9 % (32.4-45.2); HEMOGLOBIN 11.6 GM/dL (10.7-15.3); MCH 28.3 pg (25.7-33.7); MCHC 33.2 g/dl (32.0-36.0); MEAN CELL VOLUME 85.3 fl (80-96); MEAN PLT VOLUME 8.6 fl (7.5-11.1); PLATELET COUNT 352 10^3/uL (134-434); RDW 15.6 % (11.6-15.6); WHITE BLOOD COUNT 25.6 K/mm3 (4.0-10.0)
[2023-12-16 06:16] LABS: CHLORIDE 108 mmol/L (98-107); POTASSIUM 3.9 mmol/L (3.5-5.1); SODIUM 139 mmol/L (136-145)
[2023-12-16 06:18] LABS: ALBUMIN 1.3 g/dl (3.4-5.0)
[2023-12-16 06:19] LABS: ANION GAP 6 mmol/L (4-13); BLOOD UREA NITROGEN 14.2 mg/dL (7-18); CO2 25 mmol/L (21-32); GLUCOSE,RANDOM 164 mg/dL (74-106); MAGNESIUM 1.8 mg/dL (1.8-2.4)
[2023-12-16 06:21] LABS: CREATININE 0.6 mg/dL (0.55-1.3)
[2023-12-16 06:27] LABS: ALK PHOS 67 U/L (45-117); BILIRUBIN,TOTAL 0.4 mg/dL (0.2-1); PHOSPHOROUS 3.2 mg/dL (2.5-4.9); SGOT/AST 27 U/L (15-37); SGPT/ALT 13 U/L (13-61)
[2023-12-16 06:28] LABS: CALCIUM 6.9 mg/dL (8.5-10.1)
[2023-12-16] MEDS: CALCIUM GLUCONATE 10% - 1,000 MG/10 ML VIAL IVPB ONE (07:04)
[2023-12-16] MEDS: LEVOTHYROXINE SODIUM 100 MCG 5 ML VIAL IVPUSH SCH (09:08)
[2023-12-16] MEDS: ALPRAZolam 0.25 MG TABLET PO ONE (10:46)
[2023-12-16] MEDS: ENOXAPARIN NA (PORCINE) 80 MG/0.8 ML DISP.SYRIN SQ SCH (10:48)
[2023-12-16 13:50] LABS: BASO % 0.3 % (0-2.0); EOS % 1.2 % (0-4.5); HEMATOCRIT 33.2 % (32.4-45.2); HEMOGLOBIN 11.3 GM/dL (10.7-15.3); LYMPH % 14.2 % (8-40); MCH 28.6 pg (25.7-33.7); MEAN CELL VOLUME 84.1 fl (80-96); MEAN PLT VOLUME 8.7 fl (7.5-11.1); MONO % 9.6 % (3.8-10.2); NEUT % 74.7 % (42.8-82.8); PLATELET COUNT 369 10^3/uL (134-434); RBC 3.95 M/mm3 (3.60-5.2); WHITE BLOOD COUNT 18.3 K/mm3 (4.0-10.0)
[2023-12-17 06:57] LABS: BASO % 0.2 % (0-2.0); EOS % 3.8 % (0-4.5); HEMATOCRIT 28.6 % (32.4-45.2); HEMOGLOBIN 9.7 GM/dL (10.7-15.3); LYMPH % 16.1 % (8-40); MCH 28.8 pg (25.7-33.7); MEAN CELL VOLUME 84.9 fl (80-96); MEAN PLT VOLUME 8.6 fl (7.5-11.1); MONO % 11.2 % (3.8-10.2); NEUT % 68.7 % (42.8-82.8); PLATELET COUNT 325 10^3/uL (134-434); RBC 3.37 M/mm3 (3.60-5.2); RDW 15.9 % (11.6-15.6); WHITE BLOOD COUNT 13.2 K/mm3 (4.0-10.0)
[2023-12-17 07:05] LABS: POTASSIUM 3.5 mmol/L (3.5-5.1)
[2023-12-17 07:18] LABS: CALCIUM 7.5 mg/dL (8.5-10.1)
[2023-12-17 07:19] LABS: ALBUMIN 1.2 g/dl (3.4-5.0); BLOOD UREA NITROGEN 10.1 mg/dL (7-18); MAGNESIUM 1.9 mg/dL (1.8-2.4)
[2023-12-17 07:21] LABS: CREATININE 0.5 mg/dL (0.55-1.3); PHOSPHOROUS 1.9 mg/dL (2.5-4.9)
[2023-12-17 07:23] LABS: BILIRUBIN,TOTAL 0.4 mg/dL (0.2-1); TOT PROT 4.1 g/dl (6.4-8.2)
[2023-12-17] MEDS: LEVOTHYROXINE NA 200 MCG TABLET PO SCH (07:34)
[2023-12-17] MEDS: HYDROmorphone HCl 2 MG/ML VIAL IVPUSH ONE ×2 (08:01→17:39)
[2023-12-17] MEDS ORDERED: NICARDIPINE 25 MG in DEXTROSE 5%-WATER - 240 ML IVPB SCH ×2 (10:15→10:18)
[2023-12-17] MEDS ORDERED: HEPARIN NA (PORCINE) 5,000 UNITS/ML 1ML VIAL ONE (10:18)
[2023-12-17] MEDS ORDERED: ETOMIDATE 20 MG/10 ML VIAL IVPUSH ONE (10:38)
[2023-12-17] MEDS ORDERED: ROCURONIUM BROMIDE 50 MG/5 ML SYRINGE ONE (10:39)
[2023-12-17] MEDS ORDERED: MIDAZOLAM HCL 2 MG/2 ML SINGLE DOSE VIAL ONE (10:39)
[2023-12-17 10:44] LABS: HEMATOCRIT 31.2 % (32.4-45.2); HEMOGLOBIN 10.5 GM/dL (10.7-15.3); MCH 28.4 pg (25.7-33.7); MCHC 33.8 g/dl (32.0-36.0); MEAN CELL VOLUME 84.1 fl (80-96); MEAN PLT VOLUME 8.8 fl (7.5-11.1); PLATELET COUNT 399 10^3/uL (134-434); RBC 3.71 M/mm3 (3.60-5.2); RDW 15.8 % (11.6-15.6); WHITE BLOOD COUNT 17.7 K/mm3 (4.0-10.0)
[2023-12-17 10:52] LABS: INR 1.16 (0.83-1.09)
[2023-12-17 10:54] LABS: ACTIVATED PTT 30.6 SECONDS (25.2-36.5)
[2023-12-17] MEDS: DEXTROSE 5%-LACTATED RINGERS 1,000 ML IV SCH (11:00)
[2023-12-17] MEDS ORDERED: DEXTROSE 5%-WATER - 1,000 ML IV SCH (11:00)
[2023-12-17] MEDS: LOSARTAN POTASSIUM 50 MG TABLET PO SCH (11:01)
[2023-12-17] MEDS ORDERED: FENTANYL CITRATE/PF 50 MCG/ML VIAL ONE ×2 (11:07→11:41)
[2023-12-17 11:17] LABS: ANISOCYTOSIS 0; HELMET CELLS 0; HOWELL-JOLLY BODIES 0; MACROCYTOSIS 0; OVALOCYTE 0; ROULEAU 0; SICKELED CELLS 0; TARGET CELLS 0; TEAR DROP CELLS 0; TOXIC GRANULATION 0
[2023-12-17] MEDS ORDERED: SUGAMMADEX SODIUM 200 MG/2 ML VIAL ONE (11:51)
[2023-12-17] MEDS: POVIDONE-IODINE OINTMENT 10% - 28.4 GM TUBE TP ONE (12:00)
[2023-12-17] MEDS: LACTATED RINGERS SOLUTION 1000 ML INFUS.BAG IV ONE ×3 (15:35→19:40)
[2023-12-17] MEDS: LACTATED RINGERS SOLUTION 1,000 ML/1,000 ML INFUS.BAG IV SCH (15:38)
[2023-12-17] MEDS: VANCOMYCIN/WATER 1250 MG 1,250 MG/250 ML BAG IVPB SCH (15:41)
[2023-12-17 19:12] LABS: BASO % 0.3 % (0-2.0); EOS % 1.1 % (0-4.5); HEMATOCRIT 30.2 % (32.4-45.2); HEMOGLOBIN 9.9 GM/dL (10.7-15.3); LYMPH % 14.3 % (8-40); MCH 28.4 pg (25.7-33.7); MCHC 32.9 g/dl (32.0-36.0); MEAN CELL VOLUME 86.4 fl (80-96); MEAN PLT VOLUME 8.7 fl (7.5-11.1); MONO % 10.8 % (3.8-10.2); NEUT % 73.5 % (42.8-82.8); PLATELET COUNT 375 10^3/uL (134-434); RDW 15.3 % (11.6-15.6); WHITE BLOOD COUNT 19.1 K/mm3 (4.0-10.0)
[2023-12-17] MEDS ORDERED: NALOXONE HCL 0.4 MG/ML VIAL ONE (20:38)
[2023-12-17] MEDS: NALOXONE HCL 0.4 MG/ML VIAL IVPUSH ONE (20:42)
[2023-12-18 04:00] LABS: HEMATOCRIT 27.7 % (32.4-45.2); HEMOGLOBIN 9.3 GM/dL (10.7-15.3); LYMPH % 11.1 % (8-40); MCH 28.4 pg (25.7-33.7); MCHC 33.5 g/dl (32.0-36.0); MEAN CELL VOLUME 84.9 fl (80-96); MEAN PLT VOLUME 8.2 fl (7.5-11.1); MONO % 8.5 % (3.8-10.2); NEUT % 79.1 % (42.8-82.8); PLATELET COUNT 351 10^3/uL (134-434); RBC 3.26 M/mm3 (3.60-5.2); RDW 15.6 % (11.6-15.6); WHITE BLOOD COUNT 14.8 K/mm3 (4.0-10.0)
[2023-12-18 04:01] LABS: BASO % 0.3 % (0-2.0)
[2023-12-18 07:20] LABS: CHLORIDE 107 mmol/L (98-107); POTASSIUM 3.2 mmol/L (3.5-5.1); SODIUM 137 mmol/L (136-145)
[2023-12-18 07:27] LABS: ANION GAP 2 mmol/L (4-13); BLOOD UREA NITROGEN 6.6 mg/dL (7-18); CO2 29 mmol/L (21-32); GLUCOSE,RANDOM 114 mg/dL (74-106); MAGNESIUM 1.5 mg/dL (1.8-2.4)
[2023-12-18 07:28] LABS: ALBUMIN 1.2 g/dl (3.4-5.0)
[2023-12-18 07:30] LABS: CREATININE 0.4 mg/dL (0.55-1.3); PHOSPHOROUS 1.9 mg/dL (2.5-4.9); SGPT/ALT 12 U/L (13-61)
[2023-12-18 07:31] LABS: SGOT/AST 36 U/L (15-37)
[2023-12-18 07:33] LABS: BILIRUBIN,TOTAL 0.6 mg/dL (0.2-1)
[2023-12-18 08:15] LABS: ALK PHOS 78 U/L (45-117)
[2023-12-18 08:19] LABS: CALCIUM 6.7 mg/dL (8.5-10.1)
[2023-12-18] MEDS ORDERED: DOCUSATE SODIUM 100 MG CAPSULE (FP) PO PRN (08:51)
[2023-12-18] MEDS: MAGNESIUM SULFATE IN WATER 2 GM/50 ML IVPB IVPB ONE (09:26)
[2023-12-18] MEDS: oxyCODONE HCL 5 MG TABLET PO PRN (09:26)
[2023-12-18] MEDS: POTASSIUM PHOSPHATE 30 MM in DEXTROSE 5%-WATER - 500 ML IVPB ONE (10:30)
[2023-12-18 14:24] LABS: BASO % 0.3 % (0-2.0); EOS % 0.6 % (0-4.5); HEMATOCRIT 27.6 % (32.4-45.2); HEMOGLOBIN 9.1 GM/dL (10.7-15.3); LYMPH % 10.8 % (8-40); MCH 28.2 pg (25.7-33.7); MEAN CELL VOLUME 85.5 fl (80-96); MEAN PLT VOLUME 8.7 fl (7.5-11.1); MONO % 9.5 % (3.8-10.2); NEUT % 78.8 % (42.8-82.8); PLATELET COUNT 372 10^3/uL (134-434); RBC 3.23 M/mm3 (3.60-5.2); RDW 15.5 % (11.6-15.6); WHITE BLOOD COUNT 14.2 K/mm3 (4.0-10.0)
[2023-12-19 07:15] LABS: CHLORIDE 103 mmol/L (98-107); SODIUM 137 mmol/L (136-145)
[2023-12-19 07:18] LABS: CALCIUM 7.2 mg/dL (8.5-10.1)
[2023-12-19 07:19] LABS: ALBUMIN 1.1 g/dl (3.4-5.0); BLOOD UREA NITROGEN 5.3 mg/dL (7-18); CO2 30 mmol/L (21-32); GLUCOSE,RANDOM 137 mg/dL (74-106)
[2023-12-19 07:21] LABS: MAGNESIUM 1.9 mg/dL (1.8-2.4); SGPT/ALT 17 U/L (13-61)
[2023-12-19 07:22] LABS: CREATININE 0.4 mg/dL (0.55-1.3); PHOSPHOROUS 2.2 mg/dL (2.5-4.9); SGOT/AST 49 U/L (15-37)
[2023-12-19 07:23] LABS: BILIRUBIN,TOTAL 0.6 mg/dL (0.2-1)
[2023-12-19 07:25] LABS: ALK PHOS 88 U/L (45-117)
[2023-12-19 07:26] LABS: BASO % 0.2 % (0-2.0); EOS % 0.5 % (0-4.5); HEMATOCRIT 26.3 % (32.4-45.2); HEMOGLOBIN 8.9 GM/dL (10.7-15.3); LYMPH % 7.8 % (8-40); MCH 28.9 pg (25.7-33.7); MCHC 33.9 g/dl (32.0-36.0); MEAN CELL VOLUME 85.2 fl (80-96); MEAN PLT VOLUME 8.8 fl (7.5-11.1); MONO % 10.5 % (3.8-10.2); PLATELET COUNT 359 10^3/uL (134-434); RBC 3.09 M/mm3 (3.60-5.2); RDW 15.4 % (11.6-15.6)
[2023-12-19 08:08] LABS: ANION GAP 5 mmol/L (4-13); POTASSIUM 2.9 mmol/L (3.5-5.1)
[2023-12-19] MEDS: KCL 20 MEQ PREMIX BAG 20 MEQ/100 ML INFUS.BAG IVPB SCH (09:05)
[2023-12-19] MEDS: MELATONIN 5 MG, MELATONIN 1 MG PO PRN (21:21)
[2023-12-20 07:24] LABS: BASO % 0.2 % (0-2.0); EOS % 0.3 % (0-4.5); HEMATOCRIT 27.3 % (32.4-45.2); HEMOGLOBIN 9.1 GM/dL (10.7-15.3); MCH 28.7 pg (25.7-33.7); MCHC 33.3 g/dl (32.0-36.0); MEAN PLT VOLUME 8.6 fl (7.5-11.1); MONO % 11.3 % (3.8-10.2); NEUT % 80.2 % (42.8-82.8); PLATELET COUNT 394 10^3/uL (134-434); RBC 3.17 M/mm3 (3.60-5.2); RDW 15.1 % (11.6-15.6); WHITE BLOOD COUNT 17.7 K/mm3 (4.0-10.0)
[2023-12-20 07:28] LABS: POTASSIUM 3.5 mmol/L (3.5-5.1)
[2023-12-20 07:30] LABS: CALCIUM 7.4 mg/dL (8.5-10.1)
[2023-12-20 07:31] LABS: BLOOD UREA NITROGEN 4.6 mg/dL (7-18); MAGNESIUM 1.9 mg/dL (1.8-2.4)
[2023-12-20 07:34] LABS: CREATININE 0.3 mg/dL (0.55-1.3); PHOSPHOROUS 2.4 mg/dL (2.5-4.9)
[2023-12-20 07:35] LABS: BILIRUBIN,TOTAL 0.5 mg/dL (0.2-1)
[2023-12-20 07:36] LABS: TOT PROT 4.2 g/dl (6.4-8.2)
[2023-12-20] MEDS: oxyCODONE HCL 5 MG TABLET PO PRN (09:23)
[2023-12-20] MEDS ORDERED: LIDOCAINE HCL 1%, 10 MG/ML (20ML VIAL) ONE (11:45)
[2023-12-20] MEDS: LIDOCAINE HCL 1%, 10 MG/ML (20ML VIAL) SQ ONE (12:10)
[2023-12-20] MEDS: SODIUM CHLORIDE 1,000 ML IV STA (12:51)
[2023-12-20] MEDS: POLYETHYLENE GLYCOL (HEALTHYLAX) 3350 17 GM PACKET PO PRN (21:13)
[2023-12-21 07:19] LABS: BASO % 0.2 % (0-2.0); EOS % 0.8 % (0-4.5); HEMOGLOBIN 8.3 GM/dL (10.7-15.3); LYMPH % 8.6 % (8-40); MCH 28.7 pg (25.7-33.7); MCHC 33.1 g/dl (32.0-36.0); MEAN CELL VOLUME 86.8 fl (80-96); MEAN PLT VOLUME 8.6 fl (7.5-11.1); MONO % 9.6 % (3.8-10.2); NEUT % 80.8 % (42.8-82.8); PLATELET COUNT 398 10^3/uL (134-434); RBC 2.88 M/mm3 (3.60-5.2); RDW 15.2 % (11.6-15.6); WHITE BLOOD COUNT 16.5 K/mm3 (4.0-10.0)
[2023-12-21 07:33] LABS: ALBUMIN 0.9 g/dl (3.4-5.0); CHLORIDE 102 mmol/L (98-107); SODIUM 138 mmol/L (136-145)
[2023-12-21 07:36] LABS: BILIRUBIN,DIRECT 0.2 mg/dL (0.0-0.2)
[2023-12-21 07:38] LABS: BILIRUBIN,TOTAL 0.4 mg/dL (0.2-1); TOT PROT 3.9 g/dl (6.4-8.2)
[2023-12-21 07:41] LABS: ALBUMIN 0.9 g/dl (3.4-5.0)
[2023-12-21 07:42] LABS: ANION GAP 4 mmol/L (4-13); BLOOD UREA NITROGEN 4.4 mg/dL (7-18); CO2 32 mmol/L (21-32); GLUCOSE,RANDOM 122 mg/dL (74-106); MAGNESIUM 1.8 mg/dL (1.8-2.4)
[2023-12-21 07:44] LABS: CREATININE 0.4 mg/dL (0.55-1.3); PHOSPHOROUS 2.2 mg/dL (2.5-4.9); SGOT/AST 105 U/L (15-37)
[2023-12-21 07:45] LABS: SGPT/ALT 31 U/L (13-61)
[2023-12-21 07:46] LABS: BILIRUBIN,TOTAL 0.4 mg/dL (0.2-1); TOT PROT 3.9 g/dl (6.4-8.2)
[2023-12-21 07:47] LABS: ALK PHOS 119 U/L (45-117)
[2023-12-21 08:01] LABS: CALCIUM 6.9 mg/dL (8.5-10.1)
[2023-12-21] MEDS ORDERED: KCL 10 MEQ IVPB 10 MEQ/100 ML INFUS.BAG IVPB SCH (08:15)
[2023-12-21 09:06] LABS: EPI CELLS 28 /uL (0-25.1); HYALINE CASTS 6 /uL (0-3.1); PH,URINE 5.5 (5.0-8.0); URINE APPEARANCE CLEAR; URINE BACTERIA 34 /uL (0-1359); URINE BILIRUBIN NEGATIVE (NEGATIVE); URINE COLOR YELLOW; URINE GLUCOSE (UA) NEGATIVE (NEGATIVE); URINE KETONE NEGATIVE (NEGATIVE); URINE LEUK ESTERASE 2+ (NEGATIVE); URINE NITRITE NEGATIVE (NEGATIVE); URINE PROTEIN TRACE (NEGATIVE); URINE UROBILINOGEN 0.2 mg/dL (0.2-1.0); URINE WBC 270 /uL (0-25.8)
[2023-12-21 09:45] LABS: URINE RBC 35 /uL (0-23.9); YEAST POSITIVE (NEGATIVE)
[2023-12-21] MEDS: KCL 20 MEQ PREMIX BAG 20 MEQ/100 ML INFUS.BAG IVPB SCH (11:16)
[2023-12-21] MEDS: METHOCARBAMOL 500 MG TABLET PO ONE (11:16)
[2023-12-21] MEDS: DEXTROSE 5%-LACTATED RINGERS 1,000 ML IV SCH (13:13)
[2023-12-21] MEDS: ACETAMINOPHEN 1000 MG/100 ML BAG IVPB PRN (14:39)
[2023-12-22 07:31] LABS: BASO % 0.3 % (0-2.0); EOS % 1.2 % (0-4.5); HEMATOCRIT 25.1 % (32.4-45.2); HEMOGLOBIN 8.2 GM/dL (10.7-15.3); LYMPH % 9.8 % (8-40); MCH 28.4 pg (25.7-33.7); MCHC 32.8 g/dl (32.0-36.0); MEAN CELL VOLUME 86.5 fl (80-96); MEAN PLT VOLUME 8.5 fl (7.5-11.1); MONO % 9.5 % (3.8-10.2); NEUT % 79.2 % (42.8-82.8); PLATELET COUNT 452 10^3/uL (134-434); RDW 15.4 % (11.6-15.6); WHITE BLOOD COUNT 13.8 K/mm3 (4.0-10.0)
[2023-12-22 07:36] LABS: CHLORIDE 100 mmol/L (98-107); POTASSIUM 3.1 mmol/L (3.5-5.1); SODIUM 135 mmol/L (136-145)
[2023-12-22 07:45] LABS: GLUCOSE,RANDOM 115 mg/dL (74-106)
[2023-12-22 07:46] LABS: ALBUMIN 0.8 g/dl (3.4-5.0); ANION GAP 2 mmol/L (4-13); BLOOD UREA NITROGEN 4.5 mg/dL (7-18); CO2 33 mmol/L (21-32); MAGNESIUM 1.7 mg/dL (1.8-2.4)
[2023-12-22 07:49] LABS: CREATININE 0.4 mg/dL (0.55-1.3); SGOT/AST 104 U/L (15-37); SGPT/ALT 35 U/L (13-61)
[2023-12-22 07:50] LABS: BILIRUBIN,TOTAL 0.4 mg/dL (0.2-1); TOT PROT 3.9 g/dl (6.4-8.2)
[2023-12-22 07:52] LABS: ALK PHOS 138 U/L (45-117)
[2023-12-22 07:55] LABS: CALCIUM 6.9 mg/dL (8.5-10.1)
[2023-12-22 08:43] VITALS: RESP 18
[2023-12-22] MEDS: MAGNESIUM 2GM/50ML STERILE WATER IVPB IVPB ONE (09:04)
[2023-12-22] MEDS: NAPH,MB-DB/K PH,MBDB POWDER PACKET PO SCH (09:04)
[2023-12-22] MEDS ORDERED: guaiFENesin/D-METHORPHAN HB 10 ML UNIT-DOSE CUPS PO PRN (09:10)
[2023-12-22] MEDS: guaiFENesin 200 MG/10 ML 10 ML UNIT-DOSE CUPS PO PRN (09:30)
[2023-12-22] MEDS: POTASSIUM CHLORIDE IV SCH (11:12)
[2023-12-22] MEDS: KCL 20 MEQ PREMIX BAG 20 MEQ/100 ML INFUS.BAG IVPB SCH (11:12)
[2023-12-22] MEDS: LACTATED RINGERS IV SCH (11:12)
[2023-12-22] MEDS: DEXTROSE 5% IV SCH (11:12)
[2023-12-22 16:04] VITALS: BP 138/57; TEMP 98.4
[2023-12-22 16:24] VITALS: PULSE 80
== END 2023-12-22 16:26 | disposition short-term general hospital (02) | DRG 907 ==
LOC: JER 12:30 → JERBED 13:51 → JICU 18:06 → J5S 12-10 16:01 → JICU 12-15 17:07
PROVIDERS: ADMIT Internal Medicine; ATTEND Internal Medicine
PROC: 04QL3ZZ Repair Left Femoral Artery, Percutaneous Approach (ICD-10-PCS; 2023-12-08)
PROC: 0Y3 Anatomical Regions, Lower Extremities, Control (ICD-10-PCS; principal; 2023-12-08 13:00)
PROC: 047Q0ZZ Dilation of Left Anterior Tibial Artery, Open Approach (ICD-10-PCS; 2023-12-15)
PROC: 04CL0ZZ Extirpation of Matter from Left Femoral Artery, Open Approach (ICD-10-PCS; 2023-12-15)
PROC: 0Y3 Anatomical Regions, Lower Extremities, Control (ICD-10-PCS; 2023-12-15)
PROC: 04QL3ZZ Repair Left Femoral Artery, Percutaneous Approach (ICD-10-PCS; 2023-12-15)
PROC: 041L4ZJ Bypass Left Femoral Artery to Left Femoral Artery, Percutaneous Endoscopic Approach (ICD-10-PCS; 2023-12-15)
PROC: B41DZZZ Fluoroscopy of Aorta and Bilateral Lower Extremity Arteries (ICD-10-PCS; 2023-12-15)
PROC: 05HM33Z Insertion of Infusion Device into Right Internal Jugular Vein, Percutaneous Approach (ICD-10-PCS; 2023-12-15)
PROC: B543ZZA Ultrasonography of Right Jugular Veins, Guidance (ICD-10-PCS; 2023-12-15)
PROC: 30233N1 Transfusion of Nonautologous Red Blood Cells into Peripheral Vein, Percutaneous Approach (ICD-10-PCS; 2023-12-15)
PROC: 30233L1 Transfusion of Nonautologous Fresh Plasma into Peripheral Vein, Percutaneous Approach (ICD-10-PCS; 2023-12-15)
PROC: 30233K1 Transfusion of Nonautologous Frozen Plasma into Peripheral Vein, Percutaneous Approach (ICD-10-PCS; 2023-12-15)
PROC: 3E05317 Introduction of Other Thrombolytic into Peripheral Artery, Percutaneous Approach (ICD-10-PCS; 2023-12-15)
PROC: 0Y3 Anatomical Regions, Lower Extremities, Control (ICD-10-PCS; 2023-12-17)
PROC: B41DZZZ Fluoroscopy of Aorta and Bilateral Lower Extremity Arteries (ICD-10-PCS; 2023-12-17)
DX: L76.32 Postprocedural hematoma of skin and subcutaneous tissue following other procedure (principal); E43 Unspecified severe protein-calorie malnutrition; R57.1 Hypovolemic shock; I97.618 Postprocedural hemorrhage of a circulatory system organ or structure following other circulatory system procedure; J96.11 Chronic respiratory failure with hypoxia; L03.116 Cellulitis of left lower limb; I74.5 Embolism and thrombosis of iliac artery; D62 Acute posthemorrhagic anemia; I96 Gangrene, not elsewhere classified; L03.90 Cellulitis, unspecified; Y83.9 Surgical procedure, unspecified as the cause of abnormal reaction of the patient, or of later complication, without mention of misadventure at the time of the procedure; E03.9 Hypothyroidism, unspecified; I10 Essential (primary) hypertension; J44.9 Chronic obstructive pulmonary disease, unspecified; I73.9 Peripheral vascular disease, unspecified; E78.5 Hyperlipidemia, unspecified; I72.9 Aneurysm of unspecified site; Z68.25 Body mass index [BMI] 25.0-25.9, adult; D64.9 Anemia, unspecified; M79.81 Nontraumatic hematoma of soft tissue
CPT/HCPCS: 36415; 36430; 71045-TC-FY; 76000-TC-FY; 80053; 80076; 81003; 82550; 82553; 82962; 83605; 83735; 84100; 84443; 85025; 85027; 85610; 85730; 86140; 86850; 86900; 86901; 86922; 87040; 87045; 87046; 87070; 87075; 87186; 87205; 87635; 88304-TC; 93005; 93010; 94002; 94760; 97116-GP; 97161-GP; 99285-25; C1760; G0480; J0131; J1644; P9017; P9038; P9058